=== PATIENT | female | born 1960 | race Caucasian/White ===

== ENCOUNTER → 2020-01-13 15:45 | Outpatient (BNVA) | payer OTHER, SELFPAY | PROVIDERS: PCP Internal Medicine; Referring Provider Internal Medicine; Visit Provider Internal Medicine Gastroenterology | DX: Z13.89 Encounter for screening for other disorder (principal) ==

== ENCOUNTER → 2020-01-21 13:09 | Outpatient (BNVA) | payer OTHER, SELFPAY | PROVIDERS: PCP Internal Medicine; Referring Provider Internal Medicine; Visit Provider Orthopaedic Surgery | DX: Z76.89 Persons encountering health services in other specified circumstances (principal) ==

== ENCOUNTER 2020-01-24 12:56 | Outpatient (REF) | payer OTHER, SELFPAY ==
--- NOTE | 2020-01-24 13:00 | FL_ITS ---
EXAMINATION: XR ARTHROGRAM SHOULDER, LEFT CLINICAL INFORMATION: Left shoulder pain. COMPARISON: None TECHNIQUE: Following explaining fluoroscopy-guided left shoulder arthrogram procedure, benefits and risk, a written consent was obtained. Patient was placed supine on fluoroscopy table and anterior aspect of left shoulder was cleaned and draped in usual sterile manner. 1% lidocaine was injected at the marked site along the inferior glenohumeral joint. A 22-gauge spinal needle was then inserted into the left inferior glenoid joint space and 2 mL of nonionic contrast was injected. 2 images were obtained for confirmation. Subsequently 0.1 mL gadolinium dilated and tenderness of saline and 1% lidocaine was injected and needle withdrawn. Complete hemostasis achieved at puncture site with sterile bandage applied. Patient tolerated procedure extremely well. Patient was sent to MRI for further imaging. FINDINGS: The glenohumeral joint space appears minimally reduced. No bony abnormality seen. There is contrast visualized in the glenohumeral joint space. FLUOROSCOPY TIME: 1.0 minute DOSE AREA PRODUCT: 2.747 uGy-m2 (microgray-meter squared) FL/FL arthrogram shoulder LT IMPRESSION: Successful fluoroscopy guided right shoulder arthrogram performed.
--- NOTE | 2020-01-24 13:09 | MR_ITS ---
EXAMINATION: MR SHOULDER WITH CONTRAST, LEFT CLINICAL INFORMATION: Left shoulder pain, impingement. COMPARISON: Radiographs 10/09/2019. TECHNIQUE: MRI of the shoulder was performed following the intra-articular administration of a dilute gadolinium-containing solution (arthrogram) on a high-field scanner. FINDINGS: ROTATOR CUFF: The supraspinatus tendon is markedly attenuated, with diffuse vocs-tfuk-wzbrbupan tearing, with some superficial most fibers remaining intact. There is a full-thickness component, with contrast extending into the subacromial-subdeltoid bursa. There is delamination of the tendon, with the deep tendon fibers retracted to the level of the humeral head apex. There is mild undersurface partial tearing at the anterior aspect of the infraspinatus tendon, and undersurface fraying of the distal subscapularis tendon. Mild supraspinatus muscle atrophy. BICEPS: Normal. CORACOACROMIAL ARCH: The undersurface of the acromion is curved with prominent subacromial spurring. Minimal acromioclavicular osteoarthritis. LABRUM/CAPSULE: No definite labral tear. GLENOHUMERAL JOINT/MARROW: Mild degenerative spurring along the greater tuberosity. Small osteophytes along the posterior glenoid rim. MR/MR shoulder LT w con IMPRESSION: Near-complete supraspinatus tendon tear with contrast extending into the subacromial-subdeltoid bursa. Deep tendon fibers are retracted to the level of the humeral head apex. Mild muscle atrophy. Mild undersurface tearing at the anterior aspect of the distal infraspinatus tendon, and undersurface fraying of the distal subscapularis tendon. Prominent subacromial spurring.
== END 2020-01-24 12:57 | disposition home or self-care (01) ==
LOC: HO.XRAY 12:56
PROVIDERS: PCP Internal Medicine; Visit Provider Orthopaedic Surgery
DX: M75.42 Impingement syndrome of left shoulder (principal)
CPT/HCPCS: 23350; 73040; 73222; Q9967

== ENCOUNTER → 2020-01-29 09:01 | Outpatient (BNVA) | payer OTHER, SELFPAY | PROVIDERS: Visit Provider Orthopaedic Surgery | DX: Z76.89 Persons encountering health services in other specified circumstances (principal) ==

== ENCOUNTER 2020-03-19 15:22 | Outpatient (REF) | payer OTHER, SELFPAY ==
--- NOTE | ~2020-03-19 | MM_ITS ---
EXAMINATION: MM SCREENING DIGITAL BREAST TOMOSYNTHESIS, BILATERAL CLINICAL INFORMATION: Screening. Asymptomatic. The lifetime risk of breast cancer based on the Tyrer-Cuzick Model is 11.6%. COMPARISON: Mammography: August 31, 2018 and studies dating back to June 17, 2013 TECHNIQUE: Digital breast tomosynthesis is performed in both the craniocaudal and mediolateral oblique views along with computer-aided detection (CAD). Synthesized 2D images are generated from the tomosynthesis. FINDINGS: The breasts are heterogeneously dense, which may obscure small masses (ACR BI-RADS breast composition Category c). There are no significant masses, abnormal calcifications, or other abnormalities. MM/MM tomosynthesis screening BI IMPRESSION: There are no significant changes from prior study. ASSESSMENT: BI-RADS 1: Negative RECOMMENDATION: Routine annual mammography screening. This patient's information was entered into a reminder system with a target due date for their next mammogram.
== END 2020-03-19 15:23 | disposition home or self-care (01) ==
LOC: HO.MAMMO 15:22
PROVIDERS: Visit Provider Nurse Practitioner Adult Health
DX: Z12.31 Encounter for screening mammogram for malignant neoplasm of breast (principal)
CPT/HCPCS: 77063; 77067

== ENCOUNTER 2020-05-07 07:38 | Outpatient (REF) | payer OTHER, SELFPAY ==
[2020-05-07 08:31] LABS: Hematocrit 41.4 % (37-47); Hemoglobin 13.6 g/dl (12.0-16.0); Mean Corpuscular HGB Conc 32.9 g/dl (31.0-35.0); Mean Corpuscular Hemoglobin 29.1 pg (27.0-33.0); Mean Corpuscular Volume 88.5 fL (80-98); Mean Platelet Volume 9.5 fL (9.4-12.3); Platelet Count 280 X10*3/uL (160-400); Red Blood Count 4.68 X10*6/uL (4.20-5.50); Red Cell Distribution Width 12.7 % (11.0-16.0); White Blood Count 6.7 X10*3/uL (4.8-10.8)
[2020-05-07 08:52] LABS: Alanine Aminotransferase 25 U/L (0-31); Albumin Level 4.4 g/dL (3.5-5.0); Alkaline Phosphatase 84 U/L (39-117); Anion Gap 16 (12-20); Aspartate Amino Transferase 23 U/L (5-31); Bilirubin Total 0.8 mg/dL (0.0-1.0); Blood Urea Nitrogen 21 mg/dL (9-16); Calcium 9.5 mg/dL (8.4-10.2); Carbon Dioxide 25 mmol/L (22-29); Chloride 105 mmol/L (96-108); Cholesterol 235 mg/dL; Estimated Glomerular Filt Rate > 60; Glucose Random 94 mg/dL (60-115); HDL Cholesterol 67 mg/dL; LDL Cholesterol Calculated 153 mg/dl; Potassium 4.6 mmol/L (3.3-5.1); Sodium 141 mmol/L (135-145); Triglycerides 76 mg/dL
[2020-05-07 09:13] LABS: Thyroid Stimulating Hormone 1.85 uIU/mL (0.32-4.0)
== END 2020-05-07 07:39 | disposition home or self-care (01) ==
LOC: HO.LAB 07:38
PROVIDERS: PCP Internal Medicine; Visit Provider Internal Medicine
DX: M89.49 Other hypertrophic osteoarthropathy, multiple sites (principal); E78.00 Pure hypercholesterolemia, unspecified; E55.9 Vitamin D deficiency, unspecified
CPT/HCPCS: 36415; 80053; 80061; 82306; 84443; 85027

== ENCOUNTER 2020-05-13 11:55 | Outpatient (REF) | payer OTHER, SELFPAY ==
[2020-05-13 13:06] LABS: C Reactive Protein 0.12 mg/dL (< or = 0.50)
[2020-05-14 06:11] LABS: Lyme Abs Screen <0.90 index
== END 2020-05-13 11:56 | disposition home or self-care (01) ==
LOC: HO.LAB 11:55
PROVIDERS: PCP Internal Medicine; Visit Provider Internal Medicine
DX: M89.49 Other hypertrophic osteoarthropathy, multiple sites (principal); M25.50 Pain in unspecified joint
CPT/HCPCS: 36415; 86140; 86618

== ENCOUNTER 2020-06-15 13:19 | Outpatient (REF) | payer OTHER, SELFPAY ==
[2020-06-15 13:30] VITALS: BP 124/63; PULSE 68; RESP 16; TEMP 37.2; O2SAT 99
[2020-06-15 14:26] VITALS: BMI 26.7
== END 2020-06-15 13:20 | disposition home or self-care (01) ==
LOC: HO.MS 13:19
PROVIDERS: PCP Internal Medicine; Visit Provider Ophthalmology
PROC: (CPT 66821; principal; 2020-06-15 14:20)
DX: H26.491 Other secondary cataract, right eye (principal); H40.053 Ocular hypertension, bilateral; Z96.1 Presence of intraocular lens; Z87.891 Personal history of nicotine dependence; Z79.899 Other long term (current) drug therapy
CPT/HCPCS: 66821

== ENCOUNTER 2020-07-09 07:21 | Outpatient (REF) | payer OTHER, SELFPAY ==
--- NOTE | ~2020-07-09 | MR_ITS ---
EXAMINATION: MR LUMBAR SPINE WITHOUT CONTRAST CLINICAL INFORMATION: Left lumbar radiculopathy. Self-reported left leg pain and left thigh pain with weightbearing. COMPARISON: MRI lumbar spine 09/20/2014. TECHNIQUE: MRI of the lumbar spine was obtained using routine sequences without contrast. FINDINGS: VERTEBRAL BODIES AND PARASPINAL STRUCTURES: 5 lumbar-type vertebral bodies are identified. Minimal rotatory levoscoliosis of the lumbar spine is visualized. No vertebral body compression deformities are identified. Moderate focal Schmorl's node deformity of the superior endplate of L4 is noted and is new compared with 09/20/2014. A moderate Schmorl's node deformity of the inferior endplate of L1 is slightly increased in size compared with 09/20/2014. Scattered foci with intrinsic high T1-weighted signal intensity are noted in the visualized thoracic and lumbar spine and likely represent hemangiomas or regions of focal fat. CONUS MEDULLARIS AND CAUDA EQUINA: Normal, terminating at the level of T12-L1. SPINAL LEVELS: T12-L1: No significant change compared with 09/20/2014. No significant central foraminal stenoses. 25% overall loss of craniocaudal height of the intervertebral disc. Mild bilateral ligamentum flavum hypertrophy. L1-L2: Moderate Schmorl's node deformity of the inferior endplate of L1 increased in size compared with 09/20/2014. No significant central or foraminal stenoses. Approximately 25% overall loss of craniocaudal height of the intervertebral disc. Mild bilateral ligamentum flavum hypertrophy. L2-L3: No significant change compared with 09/20/2014. Mild bilateral parasagittal and intraforaminal disc protrusions resulting in minimal abutment upon the traversing left L3 nerve roots and coming to within 1 mm proximity of the traversing right L3 nerve roots. Minimal central annular T2 hyperintensity which may represent an annular fissure. L3-L4: Moderate left parasagittal and intraforaminal disc protrusion slightly increased in size compared with 09/20/2014 resulting in mild impingement upon the traversing left L4 nerve roots within the left subarticular recess and mild abutment upon the left L3 dorsal root ganglion and exiting nerve root (series 6 image 18). T2 hyperintensity is present in the intraforaminal component of the protrusion and may represent an annular fissure. Mild effacement of the right subarticular recess secondary to a right parasagittal disc-osteophyte complex is unchanged compared with 09/20/2014. Furthermore, moderate left facet hypertrophic changes are slightly progressed compared with 09/20/2014. 2 mm subluxation of the left L3-L4 facet joint with fluid within the facet joint is increased in prominence compared with 09/20/2014. L4-L5: Moderate left parasagittal and intraforaminal disc protrusion slightly increased in size compared with 09/20/2014 resulting in mild left L5 traversing nerve root impingement (series 6 image 24). Furthermore, moderate left facet hypertrophic changes and left ligamentum flavum hypertrophy are slightly increased compared with 09/20/2014. Mild right facet hypertrophic changes are unchanged appreciably. L5-S1: Moderate left facet hypertrophic changes slightly increased compared with 09/20/2014. No significant central or foraminal stenoses. Mild right facet hypertrophy. Normal intervertebral disc. MR/MR lumbar spine wo con IMPRESSION: 1. Moderate multilevel chronic spondylosis of the lumbar spine with interval progression at several levels as detailed above compared with 09/20/2014. 2. L3-L4 moderate left parasagittal and intraforaminal disc protrusion increased in size compared with 09/20/2014 resulting in left L3 and L4 nerve root impingement. 3. L4-L5 moderate left parasagittal and intraforaminal disc protrusion slightly increased in size compared with 09/20/2014 resulting in mild left L5 nerve root impingement.
--- NOTE | ~2020-07-09 | XR_ITS ---
EXAMINATION: XR HIP, LEFT CLINICAL INFORMATION: Chronic left hip pain. COMPARISON: CT abdomen and pelvis 02/29/2016. TECHNIQUE: Two views of the left hip. FINDINGS: Some minimal degenerative changes are present in the left hip with some supra-acetabular sclerosis and minimal osteophyte formation. The joint space is well preserved. Findings are probably similar when compared to the 02/29/2016 CT scan. No fractures or bony destructive lesions seen. XR/XR hip LT min 2V IMPRESSION: Mild degenerative changes, left hip.
== END 2020-07-09 07:22 | disposition home or self-care (01) ==
LOC: HO.MRI 07:21
PROVIDERS: Visit Provider Internal Medicine
DX: M25.552 Pain in left hip (principal); M54.16 Radiculopathy, lumbar region
CPT/HCPCS: 72148; 73502

== ENCOUNTER → 2020-08-07 08:29 | Outpatient (BNVA) | payer OTHER, SELFPAY | PROVIDERS: Visit Provider Orthopaedic Surgery ==

== ENCOUNTER 2020-09-25 15:00 | Outpatient (RCR) | payer OTHER, SELFPAY ==
--- NOTE | 2020-08-19 18:17 | MHC.PT.EP ---
[facility] [place] Office [place] Office [place] Office [address] Juanjo Padilla [address] [phone] F: [phone] F: [phone] F: [phone] F: [phone] Physical Therapy Plan of Care Date of Evaluation: Date of Surgery: Diagnosis: Myalgia trochanteric bursitis, L hip strain of muscle, fascia and tendon of posterior muscle group Assessment: 60 y/o F with s/sx consistent with trochanteric bursitis of L hip and ? underlying L3/L4 derangement. Pt complains of pain and difficulty with prolonged walking, repetitive [id number], descending stairs, walking up inclines, and navigating changing terrains. Examination shows TTP L greater trochanter, gluteal muscles, lateral hip distal to greater trochanter, decreased hip strength L>R, (+) L Libra, (+) L ZOHAIB, L posterior innominate, and impaired gait pattern with L trendelenberg and R foot drag. . Further SIJ assessment next visit. Recommend PT 2x/week for 5 weeks to address impairments, implement HEP, and prioritize functional mobility. Frequency and Duration: The patient will be seen 2x/week for 5 weeks Short Term Goals: 2 weeks: 1. I with HEP 2. Pt will demonstrate increase in L hip abd. strength by 1 MMT grade 3. Pt will present with (-) L Libra [employer] Performance Specialist Goals: 3 weeks: 1. I with HEP and self-management of sx 2. Pt will be able to descend stairs with <3/10 pain 3. Pt will be able to perform transitional movements ([id number]) with <3/10 pain Treatment Plan: Modalities to reduce pain, spasms and effusion. Manual therapy to restore motion and function. Therapeutic exercise to improve strength and flexibility. Neuromuscular re-education for posture and balance. Therapeutic activities to return to functional activities of daily living. Electronically signed by: Nanda Bowser PT Please sign and return to therapist. Thank you for your referral.
--- NOTE | 2020-10-06 13:32 | MHC.PT.DC ---
[facility] [place] Office [place] Office [place] Office [address] Juanjo Padilla [address] [phone] F: [phone] F: [phone] F: [phone] F: [phone] Physical Therapy Discharge Report Diagnosis: Myalgia trochanteric bursitis, L hip strain of muscle, fascia and tendon of posterior muscle group Date of Surgery: Date of Evaluation: 08/19/20 Date of Discharge: 10/06/20 Treatments to Date: 4 Cancellations to Date: 0 No Shows to Date: 0 Discharge Status: Achieved Goals Improved Function Independent with HEP Discharge Summary: Pt reports feeling better and has requested d/c. She is I with HEP and demonstrates improved strength and less pain. Electronically signed by: Nanda Bowser PT Please sign and return to therapist. Thank you for your referral.
== END 2020-10-06 13:32 | disposition home or self-care (01) ==
LOC: HO.PT 15:00
PROVIDERS: PCP Internal Medicine; Visit Provider Orthopaedic Surgery
DX: M79.18 Myalgia, other site (principal); M70.62 Trochanteric bursitis, left hip; S76.312D Strain of muscle, fascia and tendon of the posterior muscle group at thigh level, left thigh, subsequent encounter
CPT/HCPCS: 97110; 97140; 97161

== ENCOUNTER 2021-01-15 07:29 | Outpatient (REF) | payer OTHER, SELFPAY ==
[2021-01-15 07:38] LABS: MANUAL DIFF FLAG NO
[2021-01-15 07:59] LABS: Basophils Absolute Auto 0.1 X10*3/uL (0.0-0.2); Basophils Percent Auto 1.1 % (0-2); Eosinophils Absolute Auto 0.3 X10*3/uL (0.0-0.4); Eosinophils Percent Auto 5.8 % (0-4); Hematocrit 41.9 % (37.0-47.0); Hemoglobin 13.7 g/dl (12.0-16.0); Imm Gran Abs Auto 0.02 X10*3/uL (0.00-0.03); Imm Gran Pct Auto 0.4 % (0.0-0.4); Lymphocytes Absolute Auto 2.2 X10*3/uL (1.2-4.9); Lymphocytes Percent Auto 39.9 % (20-40); Mean Corpuscular HGB Conc 32.7 g/dl (31.0-35.0); Mean Corpuscular Hemoglobin 29.7 pg (27.0-33.0); Mean Corpuscular Volume 90.9 fL (80.0-98.0); Mean Platelet Volume 9.1 fL (9.4-12.3); Monocytes Absolute Auto 0.5 X10*3/uL (0.1-1.2); Monocytes Percent Auto 9.6 % (2-11); Neutrophils Absolute Auto 2.4 x10*3/uL (2.0-8.3); Neutrophils Percent Auto 43.2 % (45-73); Platelet Count 281 X10*3/uL (160-400); Red Blood Count 4.61 X10*6/uL (4.20-5.50); Red Cell Distribution Width 12.9 % (11.0-16.0); White Blood Count 5.5 X10*3/uL (4.8-10.8)
[2021-01-15 08:28] LABS: Alanine Aminotransferase 25 U/L (0-31); Albumin Level 4.5 g/dL (3.5-5.0); Alkaline Phosphatase 77 U/L (39-117); Anion Gap 12 (12-20); Aspartate Amino Transferase 21 U/L (5-31); Bilirubin Total 0.7 mg/dL (0.0-1.0); Blood Urea Nitrogen 22 mg/dL (9-16); Calcium 9.7 mg/dL (8.4-10.2); Carbon Dioxide 27 mmol/L (22-29); Chloride 108 mmol/L (96-108); Estimated Glomerular Filt Rate > 60; Glucose Random 91 mg/dL (60-115); Potassium 4.6 mmol/L (3.3-5.1); Sodium 142 mmol/L (135-145)
== END 2021-01-15 07:30 | disposition home or self-care (01) ==
LOC: HO.LAB 07:29
PROVIDERS: PCP Internal Medicine; Visit Provider Internal Medicine
DX: M17.0 Bilateral primary osteoarthritis of knee (principal); E78.00 Pure hypercholesterolemia, unspecified; E55.9 Vitamin D deficiency, unspecified
CPT/HCPCS: 36415; 80053; 82306; 85025

== ENCOUNTER 2021-03-22 15:12 | Outpatient (REF) | payer OTHER, SELFPAY ==
--- NOTE | ~2021-03-22 | MM_ITS ---
EXAMINATION: MM SCREENING DIGITAL BREAST TOMOSYNTHESIS, BILATERAL CLINICAL INFORMATION: Screening. Asymptomatic. The lifetime risk of breast cancer based on the Tyrer-Cuzick Model is 9%. COMPARISON: Mammography: 03/19/2020, 08/31/2018, 07/19/2017; outside mammography 07/19/2016, 07/08/2015, 06/18/2014 ([facility]) TECHNIQUE: Digital breast tomosynthesis is performed in both the craniocaudal and mediolateral oblique views along with computer-aided detection (CAD). Synthesized 2D images are generated from the tomosynthesis. FINDINGS: The breasts are heterogeneously dense, which may obscure small masses (ACR BI-RADS breast composition Category c). There is fibronodular parenchymal pattern. Left breast appears similar to prior exams with no developing density or interval mass or architectural abnormality. Neither breast shows abnormal calcifications. There is a biopsy clip marker right mid upper outer quadrant with 2 incidental adjacent benign coarse calcifications. The axilla and skin contours are unremarkable. The right CC view has asymmetric density posterior breast medial to midline adjacent to chest wall without correlate on MLO view. Suspect summation artifact or incompletely compressed glandular tissue. Patient will be recalled for additional imaging MM/MM tomosynthesis screening BI IMPRESSION: 1. Right: Asymmetric density CC view posterior breast medial to midline, suspect summation artifact or incompletely compressed glandular tissue. 2. Left: There are no significant changes from prior study. ASSESSMENT: BI-RADS 0: Incomplete - Need Additional Imaging Evaluation RECOMMENDATION: 1. Additional views of the right breast (CC medial, ML). 2. Targeted ultrasound if warranted after review of the additional views. 3. Radiology department staff will contact the patient for additional imaging. This patient's information was entered into a reminder system with a target due date for their next mammogram.
== END 2021-03-22 15:13 | disposition home or self-care (01) ==
LOC: HO.MAMMO 15:12
PROVIDERS: PCP Internal Medicine; Visit Provider Internal Medicine
DX: Z12.31 Encounter for screening mammogram for malignant neoplasm of breast (principal)
CPT/HCPCS: 77063; 77067

== ENCOUNTER 2021-03-26 10:27 | Outpatient (REF) | payer OTHER, SELFPAY ==
--- NOTE | ~2021-03-26 | MM_ITS ---
EXAMINATION: MM DIAGNOSTIC DIGITAL BREAST TOMOSYNTHESIS, RIGHT US TARGETED RIGHT BREAST CLINICAL INFORMATION: Density deep medial right breast COMPARISON: Mammography: 03/22/2021 and studies dating back to 05/08/2009 TECHNIQUE: Digital breast tomosynthesis is performed. 2D images are generated from the tomosynthesis. The following views are obtained: Spot compression craniocaudal view and full-field medial lateral view. Targeted right breast ultrasound. FINDINGS: The breasts are heterogeneously dense, which may obscure small masses (ACR BI-RADS breast composition Category c). Spot compression view in craniocaudal projection demonstrates persistence of an approximately 9 mm somewhat lobular density lying 10 cm from the nipple adjacent to vessels and which may represent a combination of vessels and lymph node. The breast parenchyma is very nodular and there are some similar-appearing densities on previous studies. On 90-degree mediolateral view as well as previous mediolateral oblique studies there is density seen superiorly which may correspond to the density seen on craniocaudal projection. Targeted right breast ultrasound did not demonstrate any abnormal cystic or solid mass. No region of abnormal distal sound shadowing was appreciated. Results are discussed with the patient at time of visit. MM/MM tomosynthesis added views R IMPRESSION: Dense breast parenchyma with deep slightly medial density with no ultrasound correlate. Recommend 6 month follow-up right breast mammogram. ASSESSMENT: BI-RADS 3: Probably Benign RECOMMENDATION: Diagnostic mammography in 6 months. This patient's information was entered into a reminder system with a target due date for their next mammogram.
== END 2021-03-26 10:28 | disposition home or self-care (01) ==
LOC: HO.MAMMO 10:27
PROVIDERS: Visit Provider Internal Medicine
DX: R92.2 Inconclusive mammogram (principal)
CPT/HCPCS: 76642; 77061; 77065

== ENCOUNTER 2021-08-02 13:05 | Outpatient (REF) | payer OTHER, SELFPAY ==
[2021-08-02 13:19] VITALS: BMI 25.0
[2021-08-02 13:20] VITALS: BP 121/66; PULSE 67; RESP 16; TEMP 36.4; O2SAT 99
== END 2021-08-02 13:06 | disposition home or self-care (01) ==
LOC: HO.MS 13:05
PROVIDERS: PCP Internal Medicine; Visit Provider Ophthalmology
PROC: (CPT 66821; principal; 2021-08-02 15:10)
DX: H26.492 Other secondary cataract, left eye (principal); H40.053 Ocular hypertension, bilateral; Z96.1 Presence of intraocular lens; Z79.899 Other long term (current) drug therapy; Z87.891 Personal history of nicotine dependence
CPT/HCPCS: 66821

== ENCOUNTER 2021-09-21 07:34 | Outpatient (REF) | payer OTHER, SELFPAY ==
[2021-09-21 07:46] LABS: MANUAL DIFF FLAG NO
[2021-09-21 07:59] LABS: Basophils Absolute Auto 0.1 X10*3/uL (0.0-0.2); Basophils Percent Auto 1.3 % (0-2); Eosinophils Absolute Auto 0.3 X10*3/uL (0.0-0.4); Eosinophils Percent Auto 4.9 % (0-4); Hematocrit 41.3 % (37.0-47.0); Imm Gran Abs Auto 0.04 X10*3/uL (0.00-0.03); Imm Gran Pct Auto 0.6 % (0.0-0.4); Lymphocytes Absolute Auto 2.8 X10*3/uL (1.2-4.9); Lymphocytes Percent Auto 40.7 % (20-40); Mean Corpuscular HGB Conc 33.9 g/dl (31.0-35.0); Mean Corpuscular Hemoglobin 29.9 pg (27.0-33.0); Mean Corpuscular Volume 88.1 fL (80.0-98.0); Mean Platelet Volume 8.8 fL (9.4-12.3); Monocytes Absolute Auto 0.7 X10*3/uL (0.1-1.2); Monocytes Percent Auto 9.8 % (2-11); Neutrophils Percent Auto 42.7 % (45-73); Platelet Count 298 X10*3/uL (160-400); Red Blood Count 4.69 X10*6/uL (4.20-5.50); Red Cell Distribution Width 12.7 % (11.0-16.0); White Blood Count 6.9 X10*3/uL (4.8-10.8)
[2021-09-21 08:41] LABS: Alanine Aminotransferase 19 U/L (0-31); Albumin Level 4.7 g/dL (3.5-5.0); Alkaline Phosphatase 83 U/L (39-117); Anion Gap 15 (12-20); Aspartate Amino Transferase 19 U/L (5-31); Bilirubin Total 0.8 mg/dL (0.0-1.0); Blood Urea Nitrogen 19 mg/dL (9-16); Calcium 9.6 mg/dL (8.4-10.2); Carbon Dioxide 26 mmol/L (22-29); Chloride 102 mmol/L (96-108); Estimated Glomerular Filt Rate > 60; Glucose Random 91 mg/dL (60-115); Potassium 4.3 mmol/L (3.3-5.1); Sodium 139 mmol/L (135-145); Total Protein 7.3 g/dL (6.5-8.0)
== END 2021-09-21 07:35 | disposition home or self-care (01) ==
LOC: HO.LAB 07:34
PROVIDERS: PCP Internal Medicine; Visit Provider Internal Medicine
DX: M15.9 Polyosteoarthritis, unspecified (principal)
CPT/HCPCS: 36415; 80053; 85025

== ENCOUNTER 2021-10-19 14:59 | Outpatient (REF) | payer OTHER, SELFPAY ==
--- NOTE | ~2021-10-19 | MM_ITS ---
EXAMINATION: MM DIAGNOSTIC DIGITAL BREAST TOMOSYNTHESIS, RIGHT CLINICAL INFORMATION: Short interval six-month follow-up probable benign asymmetric fibroglandular tissue posterior right breast limited to CC view just medial to midline. No family history breast cancer. COMPARISON: Mammography: 03/26/2021, 03/22/2021 (BI-RADS 0) and prior studies dating back to outside mammography 06/18/2014 ([facility]); targeted right breast ultrasound 03/26/2021. TECHNIQUE: Digital breast tomosynthesis is performed in both the craniocaudal and mediolateral oblique views along with computer-aided detection (CAD). Synthesized 2D images are generated from the tomosynthesis. FINDINGS: The breasts are heterogeneously dense, which may obscure small masses (ACR BI-RADS breast composition Category c). Findings fibronodular parenchymal pattern is similar to prior studies. There is a biopsy clip marker again seen anterior mid 11:00 position. The parenchymal asymmetry posterior breast medial to midline is less conspicuous and in retrospect similar to remote outside right CC view 2014. There is no developing density or interval architectural abnormality. No abnormal calcifications. The skin contours are smooth. Right breast will be reassessed again at time of annual bilateral mammography, due in 6 months. Results are discussed with the patient at time of visit. MM/MM tomosynthesis diagnostic RT IMPRESSION: -No significant changes from prior exams. -No developing density. ASSESSMENT: BI-RADS 3: Probably Benign RECOMMENDATION: Diagnostic mammography at time of annual bilateral exam, due in 6 months. This patient's information was entered into a reminder system with a target due date for their next mammogram.
== END 2021-10-19 15:00 | disposition home or self-care (01) ==
LOC: HO.MAMMO 14:59
PROVIDERS: Absent Provider Nurse Practitioner Adult Health; PCP Internal Medicine; Visit Provider Internal Medicine
DX: R92.2 Inconclusive mammogram (principal)
CPT/HCPCS: 77061; 77065

== ENCOUNTER 2022-01-19 07:46 | Outpatient (REF) | payer OTHER, SELFPAY ==
[2022-01-19 08:02] LABS: MANUAL DIFF FLAG NO
[2022-01-19 08:14] LABS: Basophils Absolute Auto 0.1 X10*3/uL (0.0-0.2); Basophils Percent Auto 1.5 % (0-2); Eosinophils Absolute Auto 0.2 X10*3/uL (0.0-0.4); Eosinophils Percent Auto 4.4 % (0-4); Hematocrit 44.5 % (37.0-47.0); Hemoglobin 14.7 g/dl (12.0-16.0); Imm Gran Abs Auto 0.01 X10*3/uL (0.00-0.03); Imm Gran Pct Auto 0.2 % (0.0-0.4); Lymphocytes Absolute Auto 2.3 X10*3/uL (1.2-4.9); Lymphocytes Percent Auto 42.6 % (20-40); Mean Corpuscular Hemoglobin 28.9 pg (27.0-33.0); Mean Corpuscular Volume 87.6 fL (80.0-98.0); Mean Platelet Volume 8.8 fL (9.4-12.3); Monocytes Absolute Auto 0.5 X10*3/uL (0.1-1.2); Monocytes Percent Auto 9.7 % (2-11); Neutrophils Absolute Auto 2.3 x10*3/uL (2.0-8.3); Neutrophils Percent Auto 41.6 % (45-73); Platelet Count 272 X10*3/uL (160-400); Red Blood Count 5.08 X10*6/uL (4.20-5.50); Red Cell Distribution Width 12.6 % (11.0-16.0); White Blood Count 5.4 X10*3/uL (4.8-10.8)
[2022-01-19 08:40] LABS: Alanine Aminotransferase 20 U/L (0-31); Albumin Level 4.6 g/dL (3.5-5.0); Alkaline Phosphatase 80 U/L (39-117); Anion Gap 12 (12-20); Aspartate Amino Transferase 20 U/L (5-31); Blood Urea Nitrogen 13 mg/dL (9-16); C Reactive Protein 0.11 mg/dL (< or = 0.50); Calcium 9.9 mg/dL (8.4-10.2); Carbon Dioxide 28 mmol/L (22-29); Chloride 106 mmol/L (96-108); Cholesterol 263 mg/dL; Estimated Glomerular Filt Rate > 60; Glucose Random 100 mg/dL (60-115); HDL Cholesterol 76 mg/dL; LDL Cholesterol Calculated 175 mg/dl; Potassium 4.5 mmol/L (3.3-5.1); Rheumatoid Factor 30.7 IU/mL (<15.0); Sodium 141 mmol/L (135-145); Total Protein 7.4 g/dL (6.5-8.0); Triglycerides 61 mg/dL
[2022-01-19 08:54] LABS: Erythrocyte Sedimentation Rate 2 MM/HR (0-20)
[2022-01-19 09:03] LABS: Bilirubin Total 0.7 mg/dL (0.0-1.0); Thyroid Stimulating Hormone 1.88 uIU/mL (0.32-4.0)
== END 2022-01-19 07:47 | disposition home or self-care (01) ==
LOC: HO.LAB 07:46
PROVIDERS: PCP Internal Medicine; Visit Provider Internal Medicine
DX: M79.605 Pain in left leg (principal); M15.9 Polyosteoarthritis, unspecified; Z79.1 Long term (current) use of non-steroidal anti-inflammatories (NSAID)
CPT/HCPCS: 36415; 80053; 80061; 84443; 85025; 85652; 86140; 86431

== ENCOUNTER → 2022-02-17 08:18 | Outpatient (BNVA) | payer OTHER, SELFPAY | PROVIDERS: PCP Internal Medicine; Visit Provider Student in an Organized Health Care Education/Training Program | DX: Z13.89 Encounter for screening for other disorder (principal) ==

== ENCOUNTER 2022-02-18 07:51 | Outpatient (REF) | payer OTHER, SELFPAY ==
[2022-02-18 09:30] LABS: HBS Num1 9.61 mIU/mL (0-7.99); HBc Num1 0.07 S/CO (0.00-0.79); HBsAGNum1 0.32 S/CO (0.00-0.99); Hepatitis A Antibody IgM 0.23 Index (0-0.79); Hepatitis B Core Antibody Nonreactive (Nonreactive); Hepatitis B Surface Antigen Negative (Negative); ~HepC Num1 0.05 S/CO (0.00-0.79); ~Hepatitis A Antibody IgM Nonreactive (Nonreactive); ~Hepatitis C Antibody Nonreactive (Nonreactive)
[2022-02-18 13:37] LABS: HBS Num2 9.53 mIU/mL (0-7.99); HBS Num3 10.39 mIU/mL (0-7.99); ~Hepatitis B Surface Antibody GRAYZONE (Nonreactive)
[2022-02-22 15:14] LABS: Cyclic Citrullinated Peptide <16 UNITS
== END 2022-02-18 07:52 | disposition home or self-care (01) ==
LOC: HO.LAB 07:51
PROVIDERS: PCP Internal Medicine; Visit Provider Student in an Organized Health Care Education/Training Program
DX: Z11.59 Encounter for screening for other viral diseases (principal); M25.512 Pain in left shoulder
CPT/HCPCS: 36415; 86200; 86704; 86706; 86709; 86803; 87340

== ENCOUNTER 2022-05-17 15:00 | Outpatient (REF) | payer OTHER, SELFPAY ==
--- NOTE | ~2022-05-17 | MM_ITS ---
EXAMINATION: MM DIAGNOSTIC DIGITAL BREAST TOMOSYNTHESIS, BILATERAL CLINICAL INFORMATION: Due for yearly. Also follow-up probable benign small fibroglandular asymmetry posterior central medial right breast near film margin, initially noted for recall 03/22/2021. The lifetime risk of breast cancer based on the Tyrer-Cuzick Model is 8%. COMPARISON: Multiple prior mammography, most recent 10/19/2021. Ultrasound right breast 03/26/2021. TECHNIQUE: Digital breast tomosynthesis is performed in both the craniocaudal and mediolateral oblique views along with computer-aided detection (CAD). Synthesized 2D images are generated from the tomosynthesis. FINDINGS: The breasts are heterogeneously dense, which may obscure small masses (ACR BI-RADS breast composition Category c). There is fibronodular parenchymal pattern similar to prior studies. Small density at posterior film margin central medial right CC view is similar to decreased. There is no developing density or interval architectural abnormality. No abnormal calcifications. There is a biopsy clip marker again seen mid upper outer right breast. The axilla and skin contours are unremarkable. Results are provided to the patient at time of visit by the technologist. MM/MM tomosynthesis diagnostic BI IMPRESSION: Right: -No significant change from prior diagnostic exams. Left: -No mammographic evidence of malignancy. ASSESSMENT: BI-RADS 3: Probably Benign RECOMMENDATION: Diagnostic mammography at time of next annual exam, due in 12 months. This patient's information was entered into a reminder system with a target due date for their next mammogram.
== END 2022-05-17 15:01 | disposition home or self-care (01) ==
LOC: HO.MAMMO 15:00
PROVIDERS: PCP Internal Medicine; Visit Provider Internal Medicine
DX: R92.2 Inconclusive mammogram (principal); N64.89 Other specified disorders of breast
CPT/HCPCS: 77062; 77066

== ENCOUNTER 2022-08-02 07:48 | Outpatient (REF) | payer OTHER, SELFPAY | END 2022-08-02 07:49 | disposition home or self-care (01) | LOC: HO.HOSX 07:48 | PROVIDERS: PCP Internal Medicine; Visit Provider Orthopaedic Surgery | DX: M17.11 Unilateral primary osteoarthritis, right knee (principal) | CPT/HCPCS: 73560; 73565 ==

== ENCOUNTER 2022-12-07 07:46 | Outpatient (REF) | payer OTHER, SELFPAY ==
[2022-12-07 07:55] LABS: MANUAL DIFF FLAG NO
[2022-12-07 09:32] LABS: Basophils Absolute Auto 0.1 X10*3/uL (0.0-0.2); Basophils Percent Auto 1.7 % (0-2); Eosinophils Absolute Auto 0.4 X10*3/uL (0.0-0.4); Hematocrit 42.8 % (37.0-47.0); Hemoglobin 14.1 g/dl (12.0-16.0); Imm Gran Abs Auto 0.02 X10*3/uL (0.00-0.03); Imm Gran Pct Auto 0.3 % (0.0-0.4); Lymphocytes Absolute Auto 2.4 X10*3/uL (1.2-4.9); Mean Corpuscular HGB Conc 32.9 g/dl (31.0-35.0); Mean Corpuscular Hemoglobin 29.5 pg (27.0-33.0); Mean Corpuscular Volume 89.5 fL (80.0-98.0); Mean Platelet Volume 9.6 fL (9.4-12.3); Monocytes Absolute Auto 0.6 X10*3/uL (0.1-1.2); Monocytes Percent Auto 9.9 % (2-11); Neutrophils Absolute Auto 2.9 x10*3/uL (2.0-8.3); Neutrophils Percent Auto 45.1 % (45-73); Platelet Count 290 X10*3/uL (160-400); Red Blood Count 4.78 X10*6/uL (4.20-5.50); Red Cell Distribution Width 12.5 % (11.0-16.0); White Blood Count 6.4 X10*3/uL (4.8-10.8)
[2022-12-07 10:08] LABS: Alanine Aminotransferase 20 U/L (0-31); Albumin Level 4.4 g/dL (3.5-5.0); Alkaline Phosphatase 60 U/L (39-117); Anion Gap 12 (12-20); Aspartate Amino Transferase 20 U/L (5-31); Bilirubin Total 0.9 mg/dL (0.0-1.0); Blood Urea Nitrogen 15 mg/dL (9-16); C Reactive Protein 0.13 mg/dL (< or = 0.50); Calcium 9.9 mg/dL (8.4-10.2); Carbon Dioxide 27 mmol/L (22-29); Chloride 106 mmol/L (96-108); Estimated Glomerular Filt Rate > 60; Glucose Random 84 mg/dL (60-115); Potassium 4.2 mmol/L (3.3-5.1); Sodium 141 mmol/L (135-145); Total Protein 7.2 g/dL (6.5-8.0)
== END 2022-12-07 07:47 | disposition home or self-care (01) ==
LOC: HO.LAB 07:46
PROVIDERS: PCP Internal Medicine; Visit Provider Internal Medicine
DX: M54.16 Radiculopathy, lumbar region (principal); Z79.1 Long term (current) use of non-steroidal anti-inflammatories (NSAID); M25.552 Pain in left hip
CPT/HCPCS: 36415; 80053; 85025; 86140

== ENCOUNTER 2022-12-08 14:26 | Outpatient (REF) | payer OTHER, SELFPAY ==
--- NOTE | ~2022-12-08 | MR_ITS ---
EXAMINATION: MR LUMBAR SPINE WITHOUT CONTRAST CLINICAL INFORMATION: Left-sided radiculopathy COMPARISON: MRI lumbar spine 07/09/2020 TECHNIQUE: MRI of the lumbar spine was obtained using routine sequences without contrast. FINDINGS: Mid lumbar levocurvature, apex at L2-L3 with slight right lateral listhesis at L2-L3. Preserved lumbar lordosis. Redemonstrated grade 1 retrolisthesis at L3-4 and L2-L3 greater than L1-L2. Vertebral body heights are maintained. There is no suspicious osseous lesion. Multilevel disc desiccation with progressed moderate L2-L3 and L1-L2 with similar moderate to severe L3-L4 disc height loss. Multilevel endplate Schmorl's nodes, progressed at L2-L3 with mild type I Modic endplate changes, increased and most pronounced at L2-L3. Multilevel anterior osteophytic spurring is seen. Level by level detail as follows: L1-L2: Shallow annular disc bulge without spinal canal or neural foraminal stenosis. L2-L3: Retrolisthesis with annular disc bulge and new inferiorly migrated right foraminal disc extrusion and redemonstrated broad-based left subarticular disc protrusion and associated annular fissure. No spinal canal stenosis, noting redemonstrated abutment of the traversing L3 nerve roots in the subarticular zones. Stable minimal bilateral neural foraminal encroachment. L3-L4: Retrolisthesis with annular disc bulge and progressive right lateral disc osteophyte with mild bilateral facet arthrosis and small greater than right facet joint effusions. No spinal canal stenosis. Unchanged moderate right and mild left neural foraminal stenosis with impingement upon the extraforaminal right L3 nerve root. L4-L5: Annular disc bulge with new left central disc protrusion. Redemonstrated moderate bilateral facet arthrosis. No spinal canal stenosis, noting increased left subarticular zone narrowing and impression upon the traversing left L5 nerve root. No significant neural foraminal stenosis. L5-S1: Shallow annular disc bulge and advanced bilateral facet arthrosis. No spinal canal or neural foraminal stenosis. The conus medullaris terminates at the level of L1-L2. The distal spinal cord is normal in appearance. . No epidural fluid collection, hematoma, or mass. There is mild to moderate fatty atrophy of the lower paraspinal musculature. Moderately distended urinary bladder. Cervical nabothian cysts. New mild right upper pole hydronephrosis and mild left hydroureter, presumably related to distended urinary bladder with either caliectasis versus parapelvic cyst in the left lower pole. The abdominal aorta is of normal contour and caliber. MR/MR lumbar spine wo con IMPRESSION: 1. Progressive moderate disc height loss at L2-L3 and L1-L2 with increased type I Modic endplate changes. 2. At L4-L5, new left central disc protrusion with increased left subarticular zone narrowing and impression upon the traversing left L5 nerve root. 3. At L3-L4, stable moderate right neural foraminal stenosis with impingement upon the extraforaminal right L3 nerve root. 4. At L2-L3, new inferiorly migrated right foraminal disc extrusion does not contribute to increased stenosis. Stable abutment of the traversing L3 nerve roots in the subarticular zones. 5. New mild right upper pole hydronephrosis and mild left hydroureter, presumably related to distended urinary bladder, with either caliectasis versus parapelvic cyst in the left lower pole.
== END 2022-12-08 14:27 | disposition home or self-care (01) ==
LOC: HO.MRI 14:26
PROVIDERS: Visit Provider Radiology Diagnostic Radiology
DX: M54.16 Radiculopathy, lumbar region (principal)
CPT/HCPCS: 72148

== ENCOUNTER 2022-12-15 10:14 | Outpatient (REF) | payer OTHER, SELFPAY ==
--- NOTE | ~2022-12-15 | XR_ITS ---
EXAMINATION: XR HIP, LEFT CLINICAL INFORMATION: Pain in left hip COMPARISON: Left hip 07/09/2020 TECHNIQUE: AP view the pelvis and frog-leg lateral view of the left hip FINDINGS: No fracture or bony destruction alignment is anatomic. Hip joint space is maintained. There is subchondral sclerosis in the superior-lateral aspect of the acetabulum with small associated marginal osteophyte. The sacroiliac joints, right hip and pubic symphysis are within normal limits. Incidentally noted are large amount of stool within the visualized portions of the ascending and descending colon suggestive of constipation. XR/XR hip LT min 2V IMPRESSION: No significant change compared to study of 07/09/2020. Mild degenerative changes of the left hip.
== END 2022-12-15 10:15 | disposition home or self-care (01) ==
LOC: HO.HOSX 10:14
PROVIDERS: Visit Provider Orthopaedic Surgery
DX: M25.552 Pain in left hip (principal); M54.50 Low back pain, unspecified
CPT/HCPCS: 73502

== ENCOUNTER 2022-12-15 13:06 | Outpatient (AMB) | payer OTHER, SELFPAY ==
--- NOTE | 2022-12-15 13:08 | A.OFFVIS_ITS ---
Intake Intake Visit Reasons: Newprob-left hip pain Intake Note: This is a 62 year old female who presents with complaints of progressively worsening low back pain which radiates down her left leg to her left foot as well as intermittent discomfort along the lateral aspect of her left hip. The patient has tried Tylenol and anti-inflammatory medicines which gave her minimal relief. Her symptoms have been getting worse for the last few years. She also reports intermittent weakness in her left leg. Allergies avocado [AVOCADO] Allergy (Unknown, Verified 12/15/22 13:16) VOMITING bananas Adverse Reaction (Intermediate, Uncoded 12/15/22 13:16) severe nausea Medication List - Last Reconciled 12/15/22 by Caridad Calderon RN diclofenac sodium 75 mg PO BID estradiol 1 patch topical QWEEK progesterone micronized 100 mg PO DAILY [facility] Medical History Arthritis GERD (gastroesophageal reflux disease) (~10/2009) History of 2019 novel coronavirus disease (COVID-19) Surgical History H/O esophagogastroduodenoscopy Hx of colonoscopy S/P right knee arthroscopy Family History Father Emphysema lung Mother Uterine cancer Sister Lymphoma Social History Household Members: Spouse Housing: House Alcohol intake: current Alcohol intake frequency: a few times a month Alcohol type: beer Patient Tobacco Use Status: Former Tobacco user Years Smoked: quit 30 years ago e-Cigarette/Vaping Use: Never Used service: No Current occupational status: employed Current occupation: [employer] [place] Right HAnded Physical Exam Const Other: Well-nourished well-developed very friendly female awake alert and oriented x3 in no acute distress Back/Spine/Pelvis Other: Low back examination shows left-sided paraspinal muscle tenderness, pain with range of motion, positive straight leg raise test on the left at 70 degrees Extrem Other: Left hip examination shows full range of motion when compared to her right hip, minimal discomfort with range of motion, mild tenderness over her bursa, no overlying Results Reviewed Results Reviewed: X-rays of the patient's left hip show minimal joint space narrowing, no acute bony abnormalities MRI report of the patient's lumbar spine shows ?at L4-L5, new left central disc protrusion with increase left subarticular zone narrowing and impression upon the traversing left L5 nerve root? Assessment & Plan Assessment & Plan (1) Low back pain: Code(s): M54.50 - Low back pain, unspecified Plan: Ms. Sidhu presents with left hip discomfort most likely due to greater trochanteric bursitis as well as low back pain which radiates into her left leg possibly due to lumbar stenosis. Thus, I will give the patient a prescription for a Medrol Dosepak to help with inflammation. I will also put in a referral for the patient to be evaluated in the neuro surgery office here at [facility]. The patient will follow-up as instructed. Feel free to call me at any time should questions regarding her orthopedic management arise. I spent 22 minutes in reviewing the patient's records and imaging studies, seeing the patient and documenting in the medical record. Orders: Orders XR hip LT min 2V Today M25.552 - Pain in left hip Referrals Neurosurgery Referral M54.50 - Low back pain, unspecified Medications: New methylprednisolone (Medrol (Arvind)) PO PER PKG DIR 21 ea 0RF Coding Level of Care Code Est Pt Level 2 (54148) Diagnoses Low back pain M54.50
== END 2022-12-15 13:38 | disposition home or self-care (01) ==
PROVIDERS: PCP Internal Medicine; Visit Provider Orthopaedic Surgery
DX: M54.50 Low back pain, unspecified (principal)
CPT/HCPCS: 99212

== ENCOUNTER 2023-01-19 13:20 | Outpatient (REF) | payer OTHER, SELFPAY ==
--- NOTE | ~2023-01-19 | XR_ITS ---
EXAMINATION: XR LUMBOSACRAL SPINE WITH OBLIQUES CLINICAL INFORMATION: Low back pain. COMPARISON: Left hip radiographs of 12/15/2022. MRI lumbar spine 12/08/2022. TECHNIQUE: 4 views of the lumbar spine inclusive of flexion and extension views. FINDINGS: Levoscoliosis of the lumbar spine. Advanced degenerative changes in the imaged lower thoracic spine. Advanced multilevel degenerative changes in the lumbar spine with multilevel loss of disc space height most notable at L1-L2, L2-L3 and L3-L4. Facet arthritis in the lower lumbar spine. Grade 1 retrolisthesis of L3 on L4 with flexion and extension. Mild grade 1 retrolisthesis of L2 on L3 with flexion and extension. XR/XR lumbar spine 4V min IMPRESSION: Multilevel lumbar spondylosis most notable at L1-L2, L2-L3 and L3-L4.
== END 2023-01-19 13:21 | disposition home or self-care (01) ==
LOC: HO.HOSX 13:20
PROVIDERS: PCP Internal Medicine; Referring Provider Orthopaedic Surgery; Visit Provider Physician Assistant
DX: M54.50 Low back pain, unspecified (principal); M54.16 Radiculopathy, lumbar region
CPT/HCPCS: 72110

== ENCOUNTER 2023-01-19 13:20 | Outpatient (AMB) | payer OTHER, SELFPAY ==
--- NOTE | 2023-01-19 13:39 | A.SPINEOV_ITS ---
Intake Intake Visit Reasons: low back pain Intake Note: Ms. Sidhu is here today c/o low back pain. [place] [facility] [place] Heel Shaper Required: No Allergies avocado [AVOCADO] Allergy (Unknown, Verified 12/15/22 13:16) VOMITING bananas Adverse Reaction (Intermediate, Uncoded 12/15/22 13:16) severe nausea Assessment & Plan Assessment & Plan (1) Low back pain: Code(s): M54.50 - Low back pain, unspecified (2) Lumbar radiculopathy: Code(s): M54.16 - Radiculopathy, lumbar region Plan Dear dr Maddox, Thank you for referring Mrs Sidhu to our office today. She is a very nice 62-year-old female who has had severe pain in her left buttock going down into her left hip, groin extending down into her anterior thigh and then into her medial tibial region going down toward her medial ankle. She was seen in your office, she had x-rays done but it was not felt that this was strongly related to any hip pathology so lumbar MRI was ordered. This showed significant disc degeneration, and possible nerve impingement. She was sent to us for evaluation. She tells me that her symptoms are aggravated with standing and walking and better when she sits. Specifically if she is trying to go up and down stairs or up and down any kind of elevation pitch she will start to get the symptoms almost immediately. She has no tingling or numbness, but this is strictly a feeling of intense pain. She starting to get the symptoms at night as well. She takes diclofenac twice a day which does help. She takes tramadol if the pain is severe. She has not had any recent physical therapy or dedicated conservative management. PMH: Right knee arthroscopy, I am told she has severe arthritis by the patient and she needs a knee replacement., history of . Social hx: She does not smoke, drink alcohol use any drugs. Medications: Diclofenac and tramadol Allergies: None Physical exam: Awake alert oriented no acute distress, she walks with a slightly antalgic gait, her strength and reflexes are normal. No clonus. Imaging review: She is MRI done at [facility] showing multilevel degenerative disc disease, at L3-4 there is a retrolisthesis with significant disc collapse and severe facet arthropathy on the left. There is some mild n arrowing of the lateral recess at L3-4. The report suggests that there is narrowing of the lateral recess on the left at L4-5 but I do not see this. I reviewed with Dr. Bazzi, he does not see any compression there either. We did standing flexion-extension x-rays here in the office and shows a slight levoscoliosis on the AP view, no overt instability but there is some slight posterior movement in alignment with flexion and extension. Impression: 62-year-old female presents to the office today for evaluation of a left sided lower extremity radiculopathy which goes down into her buttock, hamstring, anterior thigh, left knee and her medial tibial region. It sounds like it could be a mix of overlapping dermatomes of L3 and L4. She has MRI findings consistent with severe disc collapse at L3-4. There is some mild narrowing of the lateral recess but it is not severe. She has severe facet arthropathy at this level on the left suggesting that there is probably some degree of movement. Her x-rays in the standing flexion-extension views does show some mild increase in the lower retrolisthesis with extension. At this time, in light of any dedicated conservative management, we are recommending she try a cortisone shot with Dr. Ramirez. Either an L3-4 epidural or left L3/L4 TF Fee. I will leave it up to him and his discretion as to what he thinks is best. With regard to the report suggesting that there is compression of the L5 nerve root. Dr. Bazzi and I reviewed this again at length and we do not see any evidence of compression in the lateral recess at this disc level. We think the symptoms are coming from L3-4, so the injection will will actually provide us with some information. I will also send the patient to physical therapy. If the pain escalates and continues to get worse down the road, she would likely be looking at an L3-4 fusion if she has a positive response to the injections. Thank you for allowing us to care for your patient. The total time spent with this visit with this patient was 45 minutes reviewing history, physical exam, lumbar imaging review, and implementation of treatment plan or further diagnostic testing Hiro Bazzi MD,PhD [facility] Orders: Orders XR lumbar spine 4V min 01/19/23 M54.50 - Low back pain, unspecified PT Evaluation and Treatment 01/19/23 M54.16 - Radiculopathy, lumbar region, M54.50 - Low back pain, unspecified Coding Level of Care Code New Pt Level 4 (95384) Diagnoses Low back pain M54.50 Lumbar radiculopathy M54.16
== END 2023-01-19 15:18 | disposition home or self-care (01) ==
PROVIDERS: PCP Internal Medicine; Referring Provider Orthopaedic Surgery; Visit Provider Physician Assistant
DX: M54.50 Low back pain, unspecified (principal); M54.16 Radiculopathy, lumbar region
CPT/HCPCS: 99204

== ENCOUNTER 2023-02-15 05:59 | Outpatient (REF) | payer OTHER, SELFPAY ==
--- NOTE | ~2023-02-15 | FL_ITS ---
EXAMINATION: XR FLUOROSCOPY WITH IMAGES CLINICAL INFORMATION: Radiculopathy, lumbar region. COMPARISON: None available. TECHNIQUE: Fluoroscopy Supervised By: Dr. Eddie Ramirez. Fluoroscopy Time: 0.1 minute. Cumulative Dose: 2.44 mGy. DAP: 0.452 Gycm2. Images: 2. FINDINGS: Image demonstrate needle placement and contrast injection over the left posterior lower lumbar spine FL/FL guidance in treatment room IMPRESSION: Fluoroscopic guidance for lumbar spine pain management procedure.
== END 2023-02-15 06:00 | disposition home or self-care (01) ==
LOC: CF 05:59
PROVIDERS: Visit Provider Internal Medicine
DX: M54.16 Radiculopathy, lumbar region (principal)
CPT/HCPCS: 62323; J1040; Q9967

== ENCOUNTER 2023-02-15 08:51 | Outpatient (AMB) | payer OTHER, SELFPAY ==
--- OUTSIDE RECORDS SUMMARY | 2023-02-15 08:53 | XMS_ITS | Patient Health Record ---
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 Name Role Phone Livan Chance MD Primary Care Provider Bentley Jade Unavailable [phone] REASON FOR REFERRAL No Information MEDICATIONS Medication SIG (Take, Route, Fr equency, Duration) Notes Start Date End Date Status Progesterone Active traMADol HCl Not-Jay ing Diclofenac Active SOCIAL HISTORY Tobacco Use: Social History Observation Description Date Details (start date - stop date) Never Smoker NA - NA Sex Assigned At : Social History Observation Description Sex Assigned At Unknown Tobacco Use/Smoking Question Answer Notes Are you a: nonsmoker Additional Findings: Tobacco Non-User Cu rrent non-smoker, but past smoking history unknown Alcohol Screen Question Answer Notes Did you have a drink contain ing alcohol in the past year? Yes How often did you have a dri nk containing alcohol in the past year? 2 to 3 times a week (3 points) Points 3 Interpretation Positive Tobacco use other than smoking: Question Answer Notes Are you an other tobacco user? No PROBLEMS Problem Type ICD Code Onset Dates Problem Status W/U Status Risk SNOMED Code Notes Problem Hallux valgus (acquired), left foot (M20.12) Active confirmed Acquired hallux valgus (90296201) Problem Hallux valgus (acquired), right foot (M20.11) Active confirmed Acquired hallux valgus (90763781) VITAL SIGNS Height 5 ft 8 in in 09/05/2022 Weight 170 lbs 09/05/2022 BMI 25.85 kg/m2 09/05/2022 Encounters Encounter Location Date Provider Diagnosis [facility] [address] [place] [address] 08/30/2022 [facility] [place] [address] [place] [address] 09/05/2022 Bentley Parikh PLAN OF TREATMENT Pending Test Test Name Order Date X ray : Foot, left 2V 08/21/2017 X ray : Foot, right 2V 08/21/2017 Insurance Providers Payer Name Payer Address Payer Phone Subscriber Number Group Number Insured Name Patient Relationship to Insured Coverage Start Date Coverage End Date [employer] Benefits [address] [address] [place] [address] [id number] Gianna Sidhu Self - patient is the insured MEDICAL (GENERAL) HISTORY Medical History History ICD Code Arthritis Back,Hip,and Knee pain Cataracts Hiatal hernia Reflux ( GERD) Chicken pox covid-19 Sciatica Surgical History Surgery Date(Month/Year) 12/27/1997 right knee arthroscopy 2007 cataract surgery
[2023-02-15 08:54] VITALS: BP 106/68; PULSE 58; RESP 12; O2SAT 99
--- NOTE | 2023-02-15 08:54 | A.OFFVIS_ITS ---
Intake Vital Signs 02/15/23 08:54 02/15/23 09:26 BP 106/68 118/62 Blood Pressure Location Lt brachial Lt brachial Position Sitting Sitting Respiration 12 12 Pulse 58 73 Pulse Source Pulse Oximeter Pulse Oximeter Pulse Oximetry (%) 99 99 Oxygen Delivery Method Room Air Room Air Intake Visit Reasons: Left L3-L4 interlaminar REECE Allergies avocado [AVOCADO] Allergy (Unknown, Verified 02/15/23 08:55) VOMITING bananas Adverse Reaction (Intermediate, Uncoded 02/15/23 08:55) severe nausea HPI Left L3-L4 interlaminar REECE HPI Details Patient presents for scheduled procedure. Denies any recent cough, cold, infection, fever or other significant changes in medical history since last office visit. [facility] Medical History Arthritis GERD (gastroesophageal reflux disease) (~10/2009) History of 2019 novel coronavirus disease (COVID-19) Surgical History H/O esophagogastroduodenoscopy Hx of colonoscopy S/P right knee arthroscopy Family History Father Emphysema lung Mother Uterine cancer Sister Lymphoma Social History Household Members: Spouse Housing: House Alcohol intake: current Alcohol intake frequency: a few times a month Alcohol type: beer Patient Tobacco Use Status: Former Tobacco user Years Smoked: quit 30 years ago e-Cigarette/Vaping Use: Never Used service: No Current occupational status: employed Current occupation: [employer] – [place], [place] MRI - Right HAnded Physical Exam Vital Signs: Last Vital Signs Pulse 73 02/15/23 09:26 Resp 12 02/15/23 09:26 BP 118/62 02/15/23 09:26 Pulse Ox 99 02/15/23 09:26 Oxygen Delivery Method Room Air 02/15/23 09:26 Office Procedures Joint Injection/Drain Joint Injection/Drain Details: Interlaminar epidural steroid injection, L3/4, Left parasaggital After obtaining written consent, pre-procedure blood pressure and heart rate were stable and recorded in the nursing record. The patient was placed in the prone position. The [anatomic] area was widely prepped with chloraprep and draped in sterile fashion. Fluoroscopic guidance was used to identify the desired interlaminar space and for needle placement. Subcutaneous 0.5% lidocaine was used to anesthetize the skin overlying the target. A 20-gauge Madrigal needle was advanced to the epidural space using loss of resistance to contrast technique under fluoroscopic AP and contralateral oblique views. There was no evidence of heme or CSF and no paresthesias were elicited with needle placement. Confirmation of epidural needle placement was performed with 1cc of Isovue 300. Next 3 ml 0.5% lidocaine mixed with 80 mg methylprednisolone was administered epidurally with no pain elicited on injection. The needle tract tubing was then cleared with 1 ml of 0.5% lidocaine. The needle was removed, skin cleansed and a sterile bandage was applied. The patient tolerated the procedure well and no complications were encountered. Following the procedure the patient's vital signs were stable. The patient was discharged home in good condition with post-procedural instructions. Time Out: Immediately prior to the procedure, the following was verbally confirmed that there is a signed consent form and that the correct patient, planned procedure, site and side are consistent with documentation and that necessary equipment and/or blood products are available prior to the start of the case. Complications: none EBL: <5 cc Coding 00628 - Caudal/Lumbar Epidural/Interlaminar with fluoroscopy Procedure code (CPT) selection complete Assessment & Plan Assessment & Plan (1) Lumbar radiculopathy: Code(s): M54.16 - Radiculopathy, lumbar region Plan Patient is status post left parasagittal interlaminar REECE. Patient tolerated procedure well and was discharged home in stable condition with discharge instructions. All questions were answered. We will follow-up via telephone or in clinic to assess response to therapy. A follow-up appointment was made during today's visit. Orders: Orders FL guidance in treatment room Today M54.16 - Radiculopathy, lumbar region Coding Level of Care Code Procedure Only Diagnoses Lumbar radiculopathy M54.16 CPT Codes Coding - Joint 11: 01430 - Caudal/Lumbar Epidural/Interlaminar with fluoroscopy ([id number])
[2023-02-15 09:26] VITALS: BP 118/62; PULSE 73; RESP 12; O2SAT 99
== END 2023-02-15 09:23 | disposition home or self-care (01) ==
LOC: HO.PMCPRC 08:51
PROVIDERS: PCP Internal Medicine; Visit Provider Internal Medicine
DX: M54.16 Radiculopathy, lumbar region (principal)
CPT/HCPCS: 62323

== ENCOUNTER 2023-03-01 10:33 | Outpatient (REF) | payer OTHER, SELFPAY ==
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
== END 2023-03-01 10:34 | disposition home or self-care (01) ==
LOC: HO.XRAY 10:33
PROVIDERS: PCP Internal Medicine; Visit Provider Internal Medicine
DX: M79.644 Pain in right finger(s) (principal)
CPT/HCPCS: 73140

== ENCOUNTER 2023-03-17 07:58 | Outpatient (AMB) | payer OTHER, SELFPAY ==
--- NOTE | 2023-03-17 08:02 | MHC.OFFVIS ---
Intake Vital Signs 03/17/23 08:04 Height 5 ft 8 in Weight 176 lb BMI 26.8 BP 121/63 Blood Pressure Location Lt brachial Position Sitting Respiration 12 Pulse 79 Pulse Source Pulse Oximeter Pulse Oximetry (%) 96 Oxygen Delivery Method Room Air Intake Visit Reasons: s/p Left L3-L4 interlaminar REECE/lvm Allergies avocado [AVOCADO] Allergy (Unknown, Verified 03/17/23 08:05) VOMITING bananas Adverse Reaction (Intermediate, Uncoded 03/17/23 08:05) severe nausea Medication List - Last Reconciled 03/17/23 by Lora Whelan LPN diclofenac sodium 75 mg PO BID estradiol 1 patch topical QWEEK progesterone micronized 100 mg PO DAILY HPI s/p Left L3-L4 interlaminar REECE/lvm HPI Details 62-year-old female who presents today to the office for a status post left L3-L4 interlaminar REECE. The patient reports 75% relief following the procedure. She reports tightness in her back at the end of the day. She has intermittent aching sensations in her hip region down to her leg. She has been noticing some weakness in her left leg when climbing the stairs. She has not visited physical therapy but has been doing stretching exercises at home. She has been using a pillow when sleeping on the sides. Past procedure: 02/15/23: Interlaminar epidural steroid injection, L3/4, Left parasaggital: 75% relief. [facility] Medical History Arthritis GERD (gastroesophageal reflux disease) (~10/2009) History of 2019 novel coronavirus disease (COVID-19) Surgical History H/O esophagogastroduodenoscopy Hx of colonoscopy S/P right knee arthroscopy Family History Father Emphysema lung Mother Uterine cancer Sister Lymphoma Social History Household Members: Spouse Housing: House Alcohol intake: current Alcohol intake frequency: a few times a month Alcohol type: beer Patient Tobacco Use Status: Former Tobacco user Years Smoked: quit 30 years ago e-Cigarette/Vaping Use: Never Used Primitive Makeup service: No Current occupational status: employed Current occupation: [employer] – [place] MRI - Right HAnded Review of Systems Const All systems reviewed & are unremarkable except as noted in HPI and below Physical Exam Vital Signs: Last Vital Signs Pulse 79 03/17/23 08:04 Resp 12 03/17/23 08:04 BP 121/63 03/17/23 08:04 Pulse Ox 96 03/17/23 08:04 Oxygen Delivery Method Room Air 03/17/23 08:04 BMI result Body Mass Index 26.8 General: Appears afebrile. Alert and oriented. Mood and affect appropriate. Follows and participates in conversation appropriately. Respiratory effort is unlabored. Able to transition from sit to stand unassisted. Ambulates with bilaterally normal heel strike and toe off. Results Reviewed Results Reviewed: We reviewed MRI findings, including modic changes at L2-3 and L3-4. 12/08/22: MR LUMBAR SPINE WITHOUT CONTRAST FINDINGS: Mid lumbar levocurvature, apex at L2-L3 with slight right lateral listhesis at L2-L3. Preserved lumbar lordosis. Redemonstrated grade 1 retrolisthesis at L3-4 and L2-L3 greater than L1-L2. Vertebral body heights are maintained. There is no suspicious osseous lesion. Multilevel disc desiccation with progressed moderate L2-L3 and L1-L2 with similar moderate to severe L3-L4 disc height loss. Multilevel endplate Schmorl's nodes, progressed at L2-L3 with mild type I Modic endplate changes, increased and most pronounced at L2-L3. Multilevel anterior osteophytic spurring is seen. Level by level detail as follows: L1-L2: Shallow annular disc bulge without spinal canal or neural foraminal stenosis. L2-L3: Retrolisthesis with annular disc bulge and new inferiorly migrated right foraminal disc extrusion and redemonstrated broad-based left subarticular disc protrusion and associated annular fissure. No spinal canal stenosis, noting redemonstrated abutment of the traversing L3 nerve roots in the subarticular zones. Stable minimal bilateral neural foraminal encroachment. L3-L4: Retrolisthesis with annular disc bulge and progressive right lateral disc osteophyte with mild bilateral facet arthrosis and small greater than right facet joint effusions. No spinal canal stenosis. Unchanged moderate right and mild left neural foraminal stenosis with impingement upon the extraforaminal right L3 nerve root. L4-L5: Annular disc bulge with new left central disc protrusion. Redemonstrated moderate bilateral facet arthrosis. No spinal canal stenosis, noting increased left subarticular zone narrowing and impression upon the traversing left L5 nerve root. No significant neural foraminal stenosis. L5-S1: Shallow annular disc bulge and advanced bilateral facet arthrosis. No spinal canal or neural foraminal stenosis. The conus medullaris terminates at the level of L1-L2. The distal spinal cord is normal in appearance. . No epidural fluid collection, hematoma, or mass. There is mild to moderate fatty atrophy of the lower paraspinal musculature. Moderately distended urinary bladder. Cervical nabothian cysts. New mild right upper pole hydronephrosis and mild left hydroureter, presumably related to distended urinary bladder with either caliectasis versus parapelvic cyst in the left lower pole. The abdominal aorta is of normal contour and caliber. IMPRESSION: 1. Progressive moderate disc height loss at L2-L3 and L1-L2 with increased type I Modic endplate changes. 2. At L4-L5, new left central disc protrusion with increased left subarticular zone narrowing and impression upon the traversing left L5 nerve root. 3. At L3-L4, stable moderate right neural foraminal stenosis with impingement upon the extraforaminal right L3 nerve root. 4. At L2-L3, new inferiorly migrated right foraminal disc extrusion does not contribute to increased stenosis. Stable abutment of the traversing L3 nerve roots in the subarticular zones. 5. New mild right upper pole hydronephrosis and mild left hydroureter, presumably related to distended urinary bladder, with either caliectasis versus parapelvic cyst in the left lower pole. Assessment & Plan Assessment & Plan (1) Lumbar radiculopathy: Code(s): M54.16 - Radiculopathy, lumbar region (2) Vertebrogenic low back pain: Code(s): M54.51 - Vertebrogenic low back pain Plan We reviewed MRI findings, including modic changes at L2-3 and L3-4. She has been having increased pain in her left hip and buttock region, which could be secondary to lumbar nerve root compression. She also has significant right knee osteoarthritis that has been bothered. We briefly discussed PRP/A2M therapy for her multifactorial pain symptoms including lumbar degenerative disease as well as knee osteoarthritis. The patient will continue home exercise program and let us know when her pain symptoms become aggravated again. I also recommended trying the inversion table, swimming, weightless exercise, and core strengthening exercises. Scribed for Dr. Ramirez by Jose Alejandro, medical assistant, on 03/17/2023. I, Dr. Ramirez, have personally reviewed and agree with the information entered by the scribe. Coding Level of Care Code Est Pt Level 4 (58983) Diagnoses Lumbar radiculopathy M54.16 Vertebrogenic low back pain M54.51
[2023-03-17 08:04] VITALS: BP 121/63; PULSE 79; RESP 12; O2SAT 96; BMI 26.8
== END 2023-03-17 08:35 | disposition home or self-care (01) ==
PROVIDERS: PCP Internal Medicine; Visit Provider Internal Medicine
DX: M54.16 Radiculopathy, lumbar region (principal); M54.51 Vertebrogenic low back pain
CPT/HCPCS: 99214

== ENCOUNTER → 2023-03-17 07:58 | Outpatient (BNVA) | payer OTHER, SELFPAY | PROVIDERS: PCP Internal Medicine; Visit Provider Internal Medicine ==

== ENCOUNTER 2023-05-19 14:58 | Outpatient (REF) | payer OTHER, SELFPAY ==
--- NOTE | ~2023-05-19 | MM_ITS ---
EXAMINATION: MM DIAGNOSTIC DIGITAL BREAST TOMOSYNTHESIS, BILATERAL CLINICAL INFORMATION: Two-year follow-up for unchanged probably benign focal asymmetry far posterior slightly medial right breast seen on CC view only. Patient also due for bilateral screening. COMPARISON: Mammography: 05/17/2022, 10/19/2021, 03/26/2021, 03/22/2021 (BI-RADS 0), 03/19/2020, and dating back to 2018. TECHNIQUE: Digital breast tomosynthesis is performed in both the craniocaudal and mediolateral oblique views along with computer-aided detection (CAD). Synthesized 2D images are generated from the tomosynthesis. FINDINGS: The breasts are heterogeneously dense, which may obscure small masses (ACR BI-RADS breast composition Category c). Redemonstration of diffuse fibronodular heterogeneously dense parenchymal pattern, which appears grossly unchanged to prior examinations. The small far posterior slightly medial one view asymmetry on the CC projection is even less conspicuous on today's exam, establishing a two-year stability and benignity. No correlate on the MLO projection. No further follow-up recommended. Otherwise, there are no suspicious masses, suspicious grouped calcifications, or areas of architectural distortion in either breast. No skin or axillary abnormalities. MM/MM tomosynthesis diagnostic BI IMPRESSION: There are no significant changes from prior study. There are no findings suspicious for malignancy. There are stable benign findings, including two-year stable and benign one view asymmetry which has been followed on the CC projection far posterior and slightly medial. No further follow-up recommended. Recommend the patient return to routine annual screening to include both breasts. ASSESSMENT: BI-RADS BI-RADS 2 - Benign Findings RECOMMENDATION: 1 year F/U Results were provided to the patient at time of visit by the technologist. This patient's information was entered into a reminder system with a target due date for their next mammogram.
== END 2023-05-19 14:59 | disposition home or self-care (01) ==
LOC: HO.MAMMO 14:58
PROVIDERS: PCP Internal Medicine; Visit Provider Internal Medicine
DX: R92.2 Inconclusive mammogram (principal)
CPT/HCPCS: 77062; 77066

== ENCOUNTER → 2023-05-19 15:00 | Outpatient (BNV) | payer OTHER, SELFPAY | PROVIDERS: PCP Internal Medicine; Visit Provider Radiology Diagnostic Radiology | DX: R92.8 Other abnormal and inconclusive findings on diagnostic imaging of breast (principal) | CPT/HCPCS: 77062; 77066 ==

== ENCOUNTER 2023-06-22 06:14 | Outpatient (REF) | payer OTHER, SELFPAY ==
--- NOTE | ~2023-06-22 | FL_ITS ---
EXAMINATION: XR FLUOROSCOPY WITH IMAGES CLINICAL INFORMATION: Radiculopathy. COMPARISON: None available. TECHNIQUE: Fluoroscopy Supervised By: Dr. Ramirez. Fluoroscopy Time: 0.1 min. Cumulative Dose: 1.98 mGy. DAP: 0.0208 Gycm2. Images: 2. FINDINGS: Intraoperative fluoroscopy and spot films were performed during a procedure in the OR. Spinal needle is present in the epidural space with surrounding contrast just to the left of midline. Please see Dr. Ramirez' report for complete details. FL/FL guidance in treatment room IMPRESSION: Intraoperative fluoroscopy and spot films were obtained. Please see Dr. Ramirez' report for complete details.
== END 2023-06-22 06:15 | disposition home or self-care (01) ==
LOC: CF 06:14
PROVIDERS: Visit Provider Internal Medicine
DX: M54.16 Radiculopathy, lumbar region (principal)
CPT/HCPCS: 62323; J1010; J3301; Q9967

== ENCOUNTER 2023-06-22 08:25 | Outpatient (AMB) | payer OTHER, SELFPAY ==
--- OUTSIDE RECORDS SUMMARY | 2023-06-22 08:26 | XMS_ITS | Patient Health Record ---
[facility] Address [address] [place] [address] Care Team Providers Care Railroad Hand Name Role Phone Livan Chance MD Primary Care Provider Bentley Jade Unavailable [phone] REASON FOR REFERRAL No Information MEDICATIONS Medication [...] foot (M20.12) Active confirmed Acquired hallux valgus (40019840) Problem Hallux valgus (acquired), right foot (M20.11) Active confirmed Acquired hallux valgus ([id number]) VITAL SIGNS Height 5 ft 8 in in 09/05/2022 Weight 170 lbs 09/05/2022 BMI 25.85 kg/m2 09/05/2022 Encounters Encounter Location Date Provider Diagnosis [facility] [address] [place] [address] 08/30/2022 [facility] [address] [place] [address] 09/05/2022 Bentley Parikh PLAN OF TREATMENT Pending Test Test Name Order Date X ray : Foot, left 2V 08/21/2017 X ray : Foot, right 2V 08/21/2017 Insurance Providers Payer Name Payer Address Payer Phone Subscriber Number Group Number Insured Name Patient Relationship to Insured Coverage Start Date Coverage End Date Blue Benefits [address] [address] [place] [address] [id number] Gianna Sidhu Self - patient is the insured MEDICAL (GENERAL) HISTORY Medical History History ICD Code Arthritis Back,Hip,and Knee pain Cataracts Hiatal hernia Reflux ( GERD) Chicken pox covid-19 Sciatica Surgical History Surgery Date(Month/Year) 12/27/1997 right knee arthroscopy 2007 cataract surgery
[2023-06-22 08:30] VITALS: BP 112/62; PULSE 62; RESP 16; O2SAT 100; BMI 26.8
--- NOTE | 2023-06-22 08:30 | A.OFFVIS_ITS ---
Vital Signs 06/22/23 08:30 06/22/23 09:29 Height 5 ft 8 in Weight 176 lb BMI 26.8 BP 112/62 124/80 Blood Pressure Location Lt brachial Lt brachial Position Sitting Sitting Respiration 16 16 Pulse 62 Pulse Source Pulse Oximeter Pulse Oximeter Pulse Oximetry (%) 100 80 L Oxygen Delivery Method Room Air Room Air Comment Pre-Op Post-Op Intake Visit Reasons: Left L3-L4 interlaminar REECE Allergies avocado [AVOCADO] Allergy (Unknown, Verified 03/17/23 08:05) VOMITING bananas Adverse Reaction (Intermediate, Uncoded 03/17/23 08:05) severe nausea HPI HPI Left L3-L4 interlaminar REECE: Details: Patient presents for scheduled procedure. Denies any recent cough, cold, infection, fever or other significant changes in medical history since last office visit. [facility] Medical History Arthritis GERD (gastroesophageal reflux disease) (~10/2009) History of 2019 novel coronavirus disease (COVID-19) Surgical History H/O esophagogastroduodenoscopy Hx of colonoscopy S/P right knee arthroscopy Family History Father Emphysema lung Mother Uterine cancer Sister Lymphoma Social History Household Members: Spouse Housing: House Alcohol intake: current Alcohol intake frequency: a few times a month Alcohol type: beer Patient Tobacco Use Status: Former Tobacco user Years Smoked: quit 30 years ago e-Cigarette/Vaping Use: Never Used service: No Current occupational status: employed Current occupation: [employer] [place] - Right HAnded Physical Exam Vital Signs: Last Vital Signs Pulse 62 06/22/23 08:30 Resp 16 06/22/23 08:30 BP 112/62 06/22/23 08:30 Pulse Ox 100 06/22/23 08:30 Oxygen Delivery Method Room Air 06/22/23 08:30 BMI result Body Mass Index 26.8 Office Procedures Joint Injection/Drain Joint Injection/Drain Details: Interlaminar epidural steroid injection, L3/4, Left parasaggital After obtaining written consent, pre-procedure blood pressure and heart rate were stable and recorded in the nursing record. The patient was placed in the prone position. The lumbar area was widely prepped with chloraprep and draped in sterile fashion. Fluoroscopic guidance was used to identify the desired interlaminar space and for needle placement. Subcutaneous 0.5% lidocaine was used to anesthetize the skin overlying the target. A 20-gauge Madrigal needle was advanced to the epidural space using loss of resistance to contrast technique under fluoroscopic AP and contralateral oblique views. There was no evidence of heme or CSF and no paresthesias were elicited with needle placement. Confirmation of epidural needle placement was performed with 1cc of omnipaque 180. Next 3 ml 0.5% lidocaine mixed with 80 mg triamcinolone was administered epidurally with no pain elicited on injection. The needle tract tubing was then cleared with 1 ml of 0.5% lidocaine. The needle was removed, skin cleansed and a sterile bandage was applied. The patient tole rated the procedure well and no complications were encountered. Following the procedure the patient's vital signs were stable. The patient was discharged home in good condition with post-procedural instructions. Time Out: Immediately prior to the procedure, the following was verbally confirmed that there is a signed consent form and that the correct patient, planned procedure, site and side are consistent with documentation and that necessary equipment and/or blood products are available prior to the start of the case. Complications: none EBL: <5 cc Coding 79598 - Caudal/Lumbar Epidural/Interlaminar with fluoroscopy Procedure code (CPT) selection complete Assessment & Plan Assessment & Plan (1) Lumbar radiculopathy: Code(s): M54.16 - Radiculopathy, lumbar region Category: Medical Plan Patient is status post left parasagittal interlaminar L3-L4 REECE. Patient tolerated procedure well and was discharged home in stable condition with discharge instructions. All questions were answered. We will follow-up via telephone or in clinic to assess response to therapy. A follow-up appointment was made during today's visit. Orders: Orders FL guidance in treatment room Today M54.16 - Radiculopathy, lumbar region Coding Level of Care Code Procedure Only Diagnoses Lumbar radiculopathy M54.16 CPT Codes Coding - Joint 11: 00819 - Caudal/Lumbar Epidural/Interlaminar with fluoroscopy ([id number])
[2023-06-22 09:29] VITALS: BP 124/80; RESP 16; O2SAT 80
== END 2023-06-22 09:31 | disposition home or self-care (01) ==
LOC: HO.PMCPRC 08:25
PROVIDERS: PCP Internal Medicine; Visit Provider Internal Medicine
DX: M54.16 Radiculopathy, lumbar region (principal)
CPT/HCPCS: 62323

== ENCOUNTER 2023-08-04 11:01 | Outpatient (AMB) | payer OTHER, SELFPAY ==
--- NOTE | 2023-08-04 11:06 | A.OFFVIS_ITS ---
Vital Signs 08/04/23 11:07 Height 5 ft 8 in Weight 176 lb BMI 26.8 BP 128/71 Blood Pressure Location Lt brachial Position Sitting Respiration 14 Pulse 77 Pulse Source Pulse Oximeter Pulse Oximetry (%) 97 Oxygen Delivery Method Room Air Intake Visit Reasons: s/p Left L3-L4 interlaminar REECE Allergies avocado [AVOCADO] Allergy (Unknown, Verified 08/04/23 11:07) VOMITING bananas Adverse Reaction (Intermediate, Uncoded 08/04/23 11:07) severe nausea Medication List - Last Reconciled 08/04/23 by Lora Whelan LPN diclofenac sodium 75 mg PO BID estradiol 1 patch topical QWEEK progesterone micronized 100 mg PO DAILY HPI HPI s/p Left L3-L4 interlaminar REECE: Details: 63-year-old female who presents today to the office for a status post left L3-L4 interlaminar REECE. The patient reports 60-70% relief following the procedure, with resolution of leg symptoms. Her back pain is most bothersome compared to the leg pain. She noticed a mild improvement in her pain. She has no pain sensation when lying down. She reports radiating pain down her legs. She felt numbing sensations after the first injection. Sudden movements like twisting or bending aggravate the pain.? Past procedures 06/22/23: Interlaminar epidural steroid injection, L3/4, Left parasaggital: 60- 70% relief. 02/15/23: Interlaminar epidural steroid injection, L3/4, Left parasaggital: 75% relief. [facility] Medical History Arthritis GERD (gastroesophageal reflux disease) (~10/2009) History of 2019 novel coronavirus disease (COVID-19) Surgical History H/O esophagogastroduodenoscopy Hx of colonoscopy S/P right knee arthroscopy Family History Father Emphysema lung Mother Uterine cancer Sister Lymphoma Social History Household Members: Spouse Housing: House Alcohol intake: current Alcohol intake frequency: a few times a month Alcohol type: beer Patient Tobacco Use Status: Former Tobacco user Years Smoked: quit 30 years ago e-Cigarette/Vaping Use: Never Used service: No Current occupational status: employed Current [place]: [employer] - Right HAnded Review of Systems Const All systems reviewed & are unremarkable except as noted in HPI and below Physical Exam Vital Signs: Last Vital Signs Pulse 77 08/04/23 11:07 Resp 14 08/04/23 11:07 BP 128/71 08/04/23 11:07 Pulse Ox 97 08/04/23 11:07 Oxygen Delivery Method Room Air 08/04/23 11:07 BMI result Body Mass Index 26.8 General: Appears afebrile. Alert and oriented. Mood and affect appropriate. Follows and participates in conversation appropriately. Respiratory effort is unlabored. Able to transition from sit to stand unassisted. Ambulates with bilaterally normal heel strike and toe off. Results Reviewed Results Reviewed: No imaging is available for review. Assessment & Plan Assessment & Plan (1) Vertebrogenic low back pain: Code(s): M54.51 - Vertebrogenic low back pain Category: Medical (2) Lumbar spondylosis: Code(s): M47.816 - Spondylosis without myelopathy or radiculopathy, lumbar region Category: Medical (3) Low back pain: Code(s): M54.50 - Low back pain, unspecified Category: Medical Plan Discussed temporary nerve stimulator vs. radiofrequency ablation as a possible treatment options for axial LBP. Reviewed the MRI scan result again with the patient that showed degeneration of the vertebral endplates as well as the facets. We discussed a trial of peripheral nerve stimulator. If we do proceed with the basi-vertebral nerve ablation, we will likely do it at L2, L3 and L4. 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 Scribed for Dr. Ramirez by Jose Alejandro, medical consultant, on 08/04/2023. I, Dr. Ramirez, have personally reviewed and agree with the information entered by the scribe. Coding Level of Care Code Est Pt Level 4 (40694) Diagnoses Vertebrogenic low back pain M54.51 Lumbar spondylosis M47.816 Low back pain M54.50
[2023-08-04 11:07] VITALS: BP 128/71; PULSE 77; RESP 14; O2SAT 97; BMI 26.8
== END 2023-08-04 11:21 | disposition home or self-care (01) ==
PROVIDERS: PCP Internal Medicine; Visit Provider Internal Medicine
DX: M54.51 Vertebrogenic low back pain (principal); M47.816 Spondylosis without myelopathy or radiculopathy, lumbar region; M54.50 Low back pain, unspecified
CPT/HCPCS: 99214

== ENCOUNTER → 2023-08-04 11:01 | Outpatient (BNVA) | payer OTHER, SELFPAY | PROVIDERS: PCP Internal Medicine; Visit Provider Internal Medicine ==

== ENCOUNTER 2023-09-26 08:05 | Outpatient (REF) | payer OTHER, SELFPAY ==
[2023-09-26 08:26] LABS: MANUAL DIFF FLAG NO
[2023-09-26 08:56] LABS: Basophils Absolute Auto 0.1 X10*3/uL (0.0-0.2); Basophils Percent Auto 1.3 % (0-2); Eosinophils Absolute Auto 0.7 X10*3/uL (0.0-0.4); Eosinophils Percent Auto 10.3 % (0-4); Hematocrit 42.1 % (37.0-47.0); Imm Gran Abs Auto 0.02 X10*3/uL (0.00-0.03); Imm Gran Pct Auto 0.3 % (0.0-0.4); Lymphocytes Absolute Auto 2.5 X10*3/uL (1.2-4.9); Lymphocytes Percent Auto 37.4 % (20-40); Mean Corpuscular HGB Conc 33.3 g/dl (31.0-35.0); Mean Corpuscular Volume 90.1 fL (80.0-98.0); Mean Platelet Volume 9.1 fL (9.4-12.3); Monocytes Absolute Auto 0.7 X10*3/uL (0.1-1.2); Monocytes Percent Auto 9.9 % (2-11); Neutrophils Absolute Auto 2.7 x10*3/uL (2.0-8.3); Neutrophils Percent Auto 40.8 % (45-73); Platelet Count 287 X10*3/uL (160-400); Red Blood Count 4.67 X10*6/uL (4.20-5.50); Red Cell Distribution Width 12.8 % (11.0-16.0); White Blood Count 6.7 X10*3/uL (4.8-10.8)
[2023-09-26 09:28] LABS: Estimated Average Glucose 103 mg/dL; Hemoglobin A1c % 5.2 % (<6.0)
[2023-09-26 09:55] LABS: Alanine Aminotransferase 25 U/L (0-31); Albumin Level 4.5 g/dL (3.5-5.0); Alkaline Phosphatase 75 U/L (39-117); Anion Gap 11 (12-20); Aspartate Amino Transferase 22 U/L (5-31); Bilirubin Total 0.8 mg/dL (0.0-1.0); Blood Urea Nitrogen 16 mg/dL (9-16); Calcium 9.9 mg/dL (8.4-10.2); Carbon Dioxide 29 mmol/L (22-29); Chloride 106 mmol/L (96-108); Estimated Glomerular Filt Rate > 60; Glucose Random 95 mg/dL (60-115); Potassium 4.6 mmol/L (3.3-5.1); Sodium 141 mmol/L (135-145); Total Protein 7.2 g/dL (6.5-8.0)
[2023-09-26 10:16] LABS: Thyroid Stimulating Hormone 2.12 uIU/mL (0.32-4.0)
== END 2023-09-26 08:06 | disposition home or self-care (01) ==
LOC: HO.LAB 08:05
PROVIDERS: PCP Internal Medicine; Visit Provider Internal Medicine
DX: M54.50 Low back pain, unspecified (principal); G89.29 Other chronic pain; R53.81 Other malaise; R53.83 Other fatigue; E55.9 Vitamin D deficiency, unspecified; R73.01 Impaired fasting glucose
CPT/HCPCS: 36415; 80053; 82306; 83036; 84443; 85025

== ENCOUNTER 2023-11-07 07:58 | Outpatient (REF) | payer OTHER, SELFPAY ==
--- NOTE | ~2023-11-07 | XR_ITS ---
EXAMINATION: XR KNEE, RIGHT CLINICAL INFORMATION: Right knee pain COMPARISON: 08/02/2022 TECHNIQUE: Three views of the right knee. FINDINGS: Marked medial compartment narrowing with sclerosis and prominent marginal osteophytes. Marginal osteophytes in the lateral and patellofemoral compartments. No fracture. No significant joint effusion. XR/XR knee RT 3V IMPRESSION: Severe medial compartment and mild to moderate lateral and patellofemoral compartment osteoarthritis. Electronically signed by: Min Abarca MD 12/13/2023 03:33 PM EDT
== END 2023-11-07 07:59 | disposition home or self-care (01) ==
LOC: HO.HOSX 07:58
PROVIDERS: PCP Internal Medicine; Visit Provider Orthopaedic Surgery
DX: M25.561 Pain in right knee (principal)
CPT/HCPCS: 73562

== ENCOUNTER 2023-11-07 09:36 | Outpatient (AMB) | payer OTHER, SELFPAY ==
[2023-11-07 09:38] VITALS: BMI 26.8
--- NOTE | 2023-11-07 09:38 | MHC.OFFVIS ---
Vital Signs 11/07/23 09:38 Height 5 ft 8 in Weight 176 lb BMI 26.8 Intake Visit Reasons: Right knee pain Intake Note: Gianna is a 63 year old female who presents with complaints of progressively worsening right knee pain. She describes her pain as sharp and severe in nature, 10/10. Her pain has gotten worse over the last few years in spite of continued non operative treatments. The patient has difficulty walking even short distances because of her pain. She has tried Tylenol and anti-inflammatory medicines which gave her minimal relief. She has also done physical therapy exercises which aggravated her pain. The patient has had injections in the past. The most recent injection gave her minimal relief. The patient states that her right knee pain is now interfering with her activities of daily living and her ability to sleep well through the night. that presents today with right knee pain, and to discuss surgery. Allergies avocado [AVOCADO] Allergy (Unknown, Verified 11/07/23 09:38) VOMITING bananas Adverse Reaction (Intermediate, Uncoded 08/04/23 11:07) severe nausea Medication List - Last Reconciled 11/08/23 by Zay Maddox MD diclofenac sodium 75 mg PO BID estradiol 1 patch topical QWEEK progesterone micronized 100 mg PO DAILY [facility] Medical History Arthritis History of 2019 novel coronavirus disease (COVID-19) GERD (gastroesophageal reflux disease) (~10/2009) Surgical History S/P right knee arthroscopy Hx of colonoscopy H/O esophagogastroduodenoscopy Family History Father Emphysema lung Mother Uterine cancer Sister Lymphoma Social History Household Members: Spouse Housing: House Alcohol intake: current Alcohol intake frequency: a few times a month Alcohol type: beer Patient Tobacco Use Status: Former Tobacco user Years Smoked: quit 30 years ago e-Cigarette/Vaping Use: Never Used service: No Current occupational status: employed Current occupation: [employer] [place] - Right HAnded Physical Exam Vital Signs: BMI result Body Mass Index 26.8 Const Other: Well-nourished well-developed very friendly female awake alert and oriented x3 in no acute distress Extrem Other: Bilateral lower extremity examination shows good capillary refill, no skin lesions noted, normal sensation light touch Right knee examination shows a minimal effusion, palpable crepitus with range of motion, pain with range of motion, range of motion from -3 degrees to 115 degrees, no instability Results Reviewed Results Reviewed: X-rays of the patient's right knee show end-stage degenerative joint disease with grade 4 [id number] arthritis, subchondral sclerosis, osteophyte formation, no acute bony abnormalities Assessment & Plan Assessment & Plan (1) Right knee pain: Code(s): M25.561 - Pain in right knee Category: Medical Plan Ms. Sidhu presents with progressively worsening right knee pain due to end-stage degenerative joint disease. I had a lengthy discussion with the patient regarding the treatment options. At this point she has failed continued non operative treatments. The risks and benefits of right total knee replacement surgery were discussed at length with the patient. The patient wishes to proceed with surgery. She will be scheduled for next available date. sales representative facility services will be consulted following her surgery for home physical therapy and nursing. The patient will follow-up as instructed. Feel free to call me at any time should questions regarding her orthopedic management arise. I spent 21 minutes in reviewing the patient's records and imaging studies, seeing the patient and documenting in the medical record. Orders: Orders XR knee RT 3V 11/07/23 M25.561 - Pain in right knee Coding Level of Care Code Est Pt Level 3 (40445) Complex EM visit Add On G2211 Diagnoses Right knee pain M25.561
== END 2023-11-07 10:11 | disposition home or self-care (01) ==
PROVIDERS: PCP Internal Medicine; Visit Provider Orthopaedic Surgery
DX: M17.11 Unilateral primary osteoarthritis, right knee (principal)
CPT/HCPCS: 99213

== ENCOUNTER 2023-12-04 11:04 | Outpatient (AMB) | payer OTHER, SELFPAY ==
--- OUTSIDE RECORDS SUMMARY | 2023-12-04 11:06 | XMS_ITS ---
Author Organization [facility] Address [address] [place] [address] Care Team Providers Care Sand Car Worker Name Role Phone Livan Chance MD Primary Care Provider Bentley Jade [phone] MEDICATIONS Medication SIG (Take, Route, Fr equency, [...] Are you an other tobacco user? No VITAL SIGNS Height 5 ft 8 in in 09/05/2022 Weight 170 lbs 09/05/2022 BMI 25.85 kg/m2 09/05/2022 Encounters Encounter Location Date Provider Diagnosis [facility] [address] [place] [address] 09/05/2022 Bentley Parikh PLAN OF TREATMENT No Information
--- OUTSIDE RECORDS SUMMARY | 2023-12-04 11:06 | XMS_ITS | Patient Health Record ---
[facility] Address [address] [facility] [place] [address] Care Team Providers Care Lot Boss Name Role Phone Livan Chance MD Primary Care Provider Bentley Jade Unavailable [phone] REASON FOR REFERRAL No Information MEDICATIONS Medication [...] foot (M20.12) Active confirmed Acquired hallux valgus ([id number]) Problem Hallux valgus (acquired), right foot (M20.11) Active confirmed Acquired hallux valgus ([id number]) PLAN OF TREATMENT Pending Test Test Name Order Date X ray : Foot, left 2V 08/21/2017 X ray : Foot, right 2V 08/21/2017 Insurance Providers Payer Name Payer Address Payer Phone Subscriber Number Group Number Insured Name Patient Relationship to Insured Coverage Start Date Coverage End Date Blue Benefits [address] [address] [place] [address] [id number] Gianna Sidhu Self - patient is the insured MEDICAL (GENERAL) HISTORY Medical History History ICD Code Arthritis Back,Hip,and Knee pain Cataracts Hiatal hernia Reflux ( GERD) Chicken pox covid-19 Sciatica Surgical History Surgery Date(Month/Year) 12/27/1997 right knee arthroscopy 2007 cataract surgery
--- OUTSIDE RECORDS SUMMARY | 2023-12-04 11:06 | XMS_ITS ---
Author Organization [facility] Address [address] [place] [address] Care Team Providers Care Display Decorator Name Role Phone Livan Chance MD Primary Care Provider Unavaila Bentley Coreas [phone] REASON FOR VISIT cx ON 09/05 Encounters Encounter Location Date Provider Diagnosis [facility] [address] [place] [address] 08/30/2022 Bentley Parikh PLAN OF TREATMENT No Information
--- NOTE | 2023-12-04 11:07 | MHC.OFFVIS ---
Vital Signs 12/04/23 11:08 Height 5 ft 8 in Weight 176 lb BMI 26.8 BP 122/78 Blood Pressure Location Lt brachial Position Sitting Respiration 14 Pulse 68 Pulse Source Pulse Oximeter Pulse Oximetry (%) 99 Oxygen Delivery Method Room Air Intake Visit Reasons: Back Pain Allergies banana Allergy (Severe, Verified 12/18/23 13:45) severe nausea avocado [AVOCADO] Allergy (Intermediate, Verified 12/18/23 13:45) Vomiting Medication List - Last Reconciled 12/04/23 by Lora Whelan LPN diclofenac sodium 75 mg PO BID estradiol 1 patch topical QWEEK progesterone micronized 100 mg PO DAILY HPI HPI Back Pain: Details: 63-year-old female who presents today to the office for back pain. She reports back pain more localized in the hip and sacroiliac joint region. She has difficulty walking even short distances because of her pain and struggles with gait imbalance. She has received two injections in the past. She reports progressively worsening right knee pain. She describes her pain as sharp and severe in nature and rates her pain at 10/10 in intensity. Her pain has gotten worse over the last few years in spite of continued nonoperative treatments. She has tried Tylenol and anti-inflammatory medicines, which gave her minimal relief. She has also done physical therapy exercises, which aggravated her pain. She has had injections in the past. The most recent injection gave her minimal relief. The patient states that her right knee pain is now interfering with her activities of daily living and her ability to sleep well through the night. She is scheduled for knee surgery on 01/15/2024. Past procedures 06/22/23: Interlaminar epidural steroid injection, L3/4, Left parasaggital: 60-70% relief. 02/15/23: Interlaminar epidural steroid injection, L3/4, Left parasaggital: 75% relief. [facility] Medical History (Updated 12/18/23 @ 12:11 by Farida Pearce RN) Hiatal hernia Back pain Lumbar spondylosis Arthritis GERD (gastroesophageal reflux disease) (~10/2009) Surgical History (Updated 12/18/23 @ 12:12 by Farida Pearce RN) Hx of section Hx of bilateral cataract extraction S/P right knee arthroscopy Hx of colonoscopy H/O esophagogastroduodenoscopy Family History Father Emphysema lung Mother Uterine cancer Sister Lymphoma Social History Household Members: Spouse Housing: House Are you a primary client care consultant to a significant other at home: No Do you presently have visiting nurse or other home services: No Alcohol intake: current Alcohol intake frequency: a few times a month Alcohol type: beer Patient Tobacco Use Status: Former Tobacco user Tobacco use type: Cigarette Years Smoked: 5 e-Cigarette/Vaping Use: Never Used Use of substances other than those prescribed or required for medical reasons: No Have you been hit, kicked, punched, or otherwise hurt by someone within the past year? If so, by whom?: No Spiritual Healthcare Practices: none [facility] Practices: Buddhist Cultural Healthcare Practices: none Are you DNR?: No Advance Directives: No ( is primary contact) Advance Directives Information Provided: Yes (brochure given) Advance Directives on File: No Recently lost weight without trying: No Eating poorly because of decreased appetite: No Nutrition Risks: No Nutritional Risk FDLMP: n/a Poor oral hygiene: No (multiple crowns) service: No Current occupational status: employed Current occupation: [employer] [place] - Right HAnded Review of Systems Const All systems reviewed & are unremarkable except as noted in HPI and below Physical Exam Vital Signs: Last Vital Signs Pulse 68 12/04/23 11:08 Resp 14 12/04/23 11:08 BP 122/78 12/04/23 11:08 Pulse Ox 99 12/04/23 11:08 Oxygen Delivery Method Room Air 12/04/23 11:08 BMI result Body Mass Index 26.8 General: Appears afebrile. Alert and oriented. Mood and affect appropriate. Follows and participates in conversation appropriately. Respiratory effort is unlabored. Able to transition from sit to stand unassisted. Ambulates with bilaterally normal heel strike and toe off. Results Reviewed Results Reviewed: No imaging is available for review. Assessment & Plan Assessment & Plan (1) Sacroiliac dysfunction: Code(s): M53.3 - Sacrococcygeal disorders, not elsewhere classified Category: Medical Plan We will schedule her for a right-sided sacroiliac joint injection for her low back pain secondary to gait imbalance leading to SI joint dysfunction and irritation. Discussed the risks and benefits of the procedure with the patient in detail. All questions were answered. The patient is on board with the plan. Justification for interventional therapy: ? Patient with average pain > 6/10 ? Patient has exhausted conservative therapy ? Patient unable to tolerate physical therapy due to pain . Patient has a good understanding of their pain condition and has appropriate mental and social support Scribed for Dr. Ramirez by Jose Alejandro, medical education manager, on 12/04/2023. I, Dr. Ramirez, have personally reviewed and agree with the information entered by the scribe. Coding Level of Care Code Est Pt Level 3 (58198) Diagnoses Sacroiliac dysfunction M53.3
[2023-12-04 11:08] VITALS: BP 122/78; PULSE 68; RESP 14; O2SAT 99; BMI 26.8
== END 2023-12-04 11:15 | disposition home or self-care (01) ==
LOC: HO.PMC 11:04
PROVIDERS: PCP Internal Medicine; Visit Provider Internal Medicine
DX: M53.3 Sacrococcygeal disorders, not elsewhere classified (principal)
CPT/HCPCS: 99213

== ENCOUNTER → 2023-12-04 11:04 | Outpatient (BNVA) | payer OTHER, SELFPAY | PROVIDERS: PCP Internal Medicine; Visit Provider Internal Medicine ==

== ENCOUNTER 2023-12-12 13:23 | Outpatient (REF) | payer OTHER, SELFPAY | END 2023-12-12 13:24 | disposition home or self-care (01) | LOC: HO.HOSX 13:23 | PROVIDERS: Visit Provider Orthopaedic Surgery | DX: Z13.89 Encounter for screening for other disorder (principal) ==

== ENCOUNTER 2023-12-13 12:36 | Outpatient (REF) | payer OTHER, SELFPAY ==
--- NOTE | ~2023-12-13 | XR_ITS ---
EXAMINATION: XR KNEE, LEFT CLINICAL INFORMATION: Left knee pain COMPARISON: Radiographs 11/07/2023 TECHNIQUE: Three views of the left knee. FINDINGS: Mild medial compartment osteoarthritis. Small joint effusion. No fracture or suspicious bone lesion. XR/XR knee LT 3V IMPRESSION: Mild medial compartment osteoarthritis with a small joint effusion. Electronically signed by: Min Abarca MD 12/13/2023 03:32 PM EDT
== END 2023-12-13 12:37 | disposition home or self-care (01) ==
LOC: HO.HOSX 12:36
PROVIDERS: PCP Internal Medicine; Visit Provider Orthopaedic Surgery
DX: M25.562 Pain in left knee (principal)
CPT/HCPCS: 73562

== ENCOUNTER 2023-12-13 12:36 | Outpatient (AMB) | payer OTHER, SELFPAY ==
--- NOTE | 2023-12-13 12:45 | MHC.OFFVIS ---
Intake Visit Reasons: Left knee pain and giving way Intake Note: Gianna is a 63 year old female who presents with complaints of progressively worsening left knee pain and giving way. The patient is scheduled to undergo right total knee replacement surgery in January. She states that several weeks ago she twisted her left knee going down the stairs. She had acute onset of pain along the medial aspect of her knee. Since that time her left knee has been ?giving out? several times per day. She has tried anti-inflammatory medicines and Tylenol which gave her minimal relief. She did undergo right knee arthroscopic surgery several years ago. She got fairly good relief from that surgery initially. She has tried physical therapy exercises which aggravated her pain. Allergies avocado [AVOCADO] Allergy (Unknown, Verified 12/13/23 12:51) VOMITING bananas Adverse Reaction (Intermediate, Uncoded 12/04/23 11:10) severe nausea Medication List - Last Reconciled 12/13/23 by Zay Maddox MD diclofenac sodium 75 mg PO BID estradiol 1 patch topical QWEEK progesterone micronized 100 mg PO DAILY [facility] Medical History Arthritis History of 2019 novel coronavirus disease (COVID-19) GERD (gastroesophageal reflux disease) (~10/2009) Surgical History S/P right knee arthroscopy Hx of colonoscopy H/O esophagogastroduodenoscopy Family History Father Emphysema lung Mother Uterine cancer Sister Lymphoma Social History Household Members: Spouse Housing: House Alcohol intake: current Alcohol intake frequency: a few times a month Alcohol type: beer Patient Tobacco Use Status: Former Tobacco user Years Smoked: quit 30 years ago e-Cigarette/Vaping Use: Never Used service: No Current occupational status: employed Current occupation: [employer] [place] MRI - Right HAnded Physical Exam Const Other: Well-nourished well-developed very friendly female awake alert and oriented x3 in no acute distress Extrem Other: Bilateral lower extremity examination shows good capillary refill, no skin lesions noted, normal sensation light touch Left knee examination shows a minimal effusion, minimal crepitus with range of motion, tenderness along her medial joint line, positive Pete's test, no instability Results Reviewed Results Reviewed: Standing full weight-bearing x-rays of the patient's left knee show mild diffuse joint space narrowing, no acute bony abnormalities Assessment & Plan Assessment & Plan (1) Tear of medial meniscus of left knee: Code(s): S83.242A - Other tear of medial meniscus, current injury, left knee, initial encounter Category: Medical Plan Mrs. Sidhu presents with progressively worsening left knee pain and mechanical symptoms most likely due to a tear of her medial meniscus. Thus, I will send the patient for an MRI of her left knee for further evaluation. I will contact her by phone once the MRI results are available. Feel free to call me at any time should questions regarding her orthopedic management arise. I spent 21 minutes in reviewing the patient's records and imaging studies, seeing the patient and documenting in the medical record. Orders: Orders MR knee LT wo con Today S83.242A - Other tear of medial meniscus, current injury, left knee, initial encounter XR knee LT 3V Today M25.562 - Pain in left knee Coding Level of Care Code Est Pt Level 3 (16419) Complex EM visit Add On G2211 Diagnoses Tear of medial meniscus of left knee S83.242A
== END 2023-12-13 12:58 | disposition home or self-care (01) ==
LOC: HO.HOS 12:36
PROVIDERS: PCP Internal Medicine; Visit Provider Orthopaedic Surgery
DX: S83.242A Other tear of medial meniscus, current injury, left knee, initial encounter (principal)
CPT/HCPCS: 99213

== ENCOUNTER 2023-12-13 14:25 | Outpatient (REF) | payer OTHER, SELFPAY ==
--- NOTE | ~2023-12-13 | MR_ITS ---
EXAMINATION: MR KNEE WITHOUT CONTRAST, LEFT CLINICAL INFORMATION: Injury, medial meniscal tear. COMPARISON: X-ray 12/13/2023 TECHNIQUE: MRI of the knee without contrast was performed using routine sequences on a high-field scanner. FINDINGS: MENISCI: Medial Meniscus: Complex tear of the posterior horn. This includes irregular undersurface and superior surface articular surface tearing, a vertical tear, and inner margin tear. Small parameniscal cyst. Irregular undersurface and free edge tearing in the body, with meniscal tissue subluxed into the meniscotibial recess. Anterior horn degenerative fraying/tear, with subjacent small parameniscal cyst. Lateral Meniscus: Anterior root/central anterior horn degenerative fraying/tear. Small cystic focus anterior to this could represent a synovial recess or small parameniscal cyst. LIGAMENTS: Cruciate: Diffuse increased T2 signal in the ACL, with ill-definition of the posterior fibers. This could reflect mucoid degeneration, partial tearing, or a combination of these. Mucoid degeneration of the PCL. Collateral: Intact MCL. Intact LCL complex. EXTENSOR MECHANISM: Intact. ARTICULAR CARTILAGE/BONE: Patellofemoral Compartment: Mild lateral patellar subluxation. Chondral fissuring in the medial patellar facet. Patchy chondral heterogeneity and irregularity in the lateral trochlea. Medial Compartment: Marginal osteophytes. Chondral thinning in the posterior weightbearing femoral condyle. Tibial subchondral cysts. Degenerative cyst underlying the tibial spines. Lateral Compartment: Tiny marginal osteophytes. Scattered cartilage heterogeneity and irregularity. JOINT FLUID AND BURSAE: Moderate effusion. No significant Flor's cyst. Semimembranosus tendinosis. Soleus and medial gastrocnemius muscle edema, perhaps strain. Subcutaneous edema. MR/MR knee LT wo con IMPRESSION: 1. Tear of the medial meniscal posterior horn and body. Anterior horn degenerative fraying/tear, with subjacent small para-meniscal cyst. 2. Anterior root/central anterior horn degenerative fraying/tear. Small cystic focus anterior to this, could represent a synovial recess or small parameniscal cyst. 3. Mucoid degeneration or partial tearing of the ACL. PCL mucoid degeneration. 4. Mild tricompartment arthritis. 5. Moderate effusion. 6. Semimembranosus tendinosis. 7. Soleus and medial gastrocnemius muscle edema, perhaps strain. Electronically signed by: Gilbert Medina MD 12/13/2023 05:04 PM EDT RP
== END 2023-12-13 14:26 | disposition home or self-care (01) ==
LOC: HO.MRI 14:25
PROVIDERS: PCP Internal Medicine; Visit Provider Orthopaedic Surgery
DX: S83.242A Other tear of medial meniscus, current injury, left knee, initial encounter (principal)
CPT/HCPCS: 73721

== ENCOUNTER 2023-12-14 06:17 | Outpatient (REF) | payer OTHER, SELFPAY | END 2023-12-14 06:18 | disposition home or self-care (01) | LOC: CF 06:17 | PROVIDERS: Visit Provider Internal Medicine | DX: M25.551 Pain in right hip (principal); M25.562 Pain in left knee; G89.29 Other chronic pain; M53.3 Sacrococcygeal disorders, not elsewhere classified | CPT/HCPCS: 20610; 27096; J2003; J2795; J3300; J3301 ==

== ENCOUNTER 2023-12-14 11:23 | Outpatient (AMB) | payer OTHER, SELFPAY ==
--- OUTSIDE RECORDS SUMMARY | 2023-12-14 11:25 | XMS_ITS ---
Author Organization [facility] Address [address] [place] [address] Care Team Providers Care Restaurant And Bar Manager Name Role Phone Livan Chance MD Primary Care Provider Bentley Jade [phone] MEDICATIONS Medication SIG (Take, Route, Fr equency, [...] 09/05/2022 Encounters Encounter Location Date Provider Diagnosis [facility] [address] [place] [address] 09/05/2022 Bentley Parikh PLAN OF TREATMENT No Information
--- OUTSIDE RECORDS SUMMARY | 2023-12-14 11:25 | XMS_ITS | Patient Health Record ---
[facility] Address [address] [facility] [address] [facility] [place] [address] Care Team Providers Care Cloth Doubling Machine Operator Name Role Phone Livan Chance MD Primary Care Provider Bentley Jade Unavailable [phone] REASON FOR REFERRAL No Information MEDICATIONS Medication [...] foot (M20.12) Active confirmed Acquired hallux valgus ([id number]) Problem Hallux valgus (acquired), right foot (M20.11) Active confirmed Acquired hallux valgus ([id number]) PLAN OF TREATMENT Pending Test Test Name Order Date X ray : Foot, left 2V 08/21/2017 X ray : Foot, right 2V 08/21/2017 Insurance Providers Payer Name Payer Address Payer Phone Subscriber Number Group Number Insured Name Patient Relationship to Insured Coverage Start Date Coverage End Date Blue Benefits [address] [address] [place] [address] [id number] Gianna Sidhu Self - patient is the insured MEDICAL (GENERAL) HISTORY Medical History History ICD Code Arthritis Back,Hip,and Knee pain Cataracts Hiatal hernia Reflux ( GERD) Chicken pox covid-19 Sciatica Surgical History Surgery Date(Month/Year) 12/27/1997 right knee arthroscopy 2007 cataract surgery
--- OUTSIDE RECORDS SUMMARY | 2023-12-14 11:25 | XMS_ITS ---
Author Organization [facility] Address [address] [place] [address] Care Team Providers Care Sand Buffer Name Role Phone Livan Chance MD Primary Care Provider Unavaila Bentley Coreas [phone] REASON FOR VISIT cx ON 09/05 Encounters Encounter Location Date Provider Diagnosis [facility] [address] [place] [address] 08/30/2022 Bentley Parikh PLAN OF TREATMENT No Information
[2023-12-14 11:28] VITALS: BP 114/60; PULSE 68; O2SAT 99
--- NOTE | 2023-12-14 11:28 | MHC.OFFVIS ---
Vital Signs 12/14/23 11:28 12/14/23 12:08 BP 114/60 114/71 Blood Pressure Location Lt brachial Lt brachial Position Sitting Sitting Pulse 68 72 Pulse Source Pulse Oximeter Pulse Oximeter Pulse Oximetry (%) 99 99 Oxygen Delivery Method Room Air Room Air Intake Visit Reasons: right theraputic SIJ inj/ left knee inj Allergies avocado [AVOCADO] Allergy (Unknown, Verified 12/13/23 12:51) VOMITING bananas Adverse Reaction (Intermediate, Uncoded 12/04/23 11:10) severe nausea PFSH Medical History Arthritis History of 2019 novel coronavirus disease (COVID-19) GERD (gastroesophageal reflux disease) (~10/2009) Surgical History S/P right knee arthroscopy Hx of colonoscopy H/O esophagogastroduodenoscopy Family History Father Emphysema lung Mother Uterine cancer Sister Lymphoma Social History Household Members: Spouse Housing: House Alcohol intake: current Alcohol intake frequency: a few times a month Alcohol type: beer Patient Tobacco Use Status: Former Tobacco user Years Smoked: quit 30 years ago e-Cigarette/Vaping Use: Never Used service: No Current occupational status: employed Current occupation: [employer] [place] - Right HAnded Physical Exam Vital Signs: Last Vital Signs Pulse 72 12/14/23 12:08 BP 114/71 12/14/23 12:08 Pulse Ox 99 12/14/23 12:08 Oxygen Delivery Method Room Air 12/14/23 12:08 Office Procedures AMB Joint Injection/Aspiration Joint Injection/Aspiration Details: Therapeutic Sacroiliac Joint Injection, Right The procedure, its benefits, and its risks were explained and written informed consent was obtained from the patient. Immediately prior to starting the procedure, a time-out safety check was conducted. The patient's identification, procedure name, procedure site, and procedure laterality were confirmed with the patient. ? Patient was placed prone on the fluoroscopy table and the lumbosacral area was prepped using ChloraPrep and draped with sterile drapein standard fashion. The C-arm was rotated in a contralateral oblique fashion until the medial border of the iliac crest no longer foreshadowed the posterior sacroiliac joint line. The skin and subcutaneous tissue was anesthetized using 1 mL of 0.75% plain lidocaine with 1.5-inch 25-gauge needle in the middle region of the joint line.? A 3.5-inch 22-gauge spinal needle with small bend on the tip was slowly advanced towards the joint line, coaxial to the x-ray beam. Once bony content was obtained, the needle was easily slid into the intra-articular space.? Intra-articular needle position was confirmed using lateral fluoroscopy.? A total volume of 2.5mL of solution containing 40 mg triamcinolone and rest 0.5% of ropivacaine was injected intra-articularly. The stylet was reinserted and needle was removed. The patient tolerated the procedure well. Patient denied any lower extremity weakness or numbness. Patient was observed for 30 min and was discharged after fulfilling the standard discharge criteria. Secondary Site: left knee Prep: site was prepped using sterile technique Injected: 40 mg of, Kenalog, with 3 mL of, 1% plain lidocaine, in the joint and other (20 mL of clear synovial fluid was aspirated prior to Kenalog injection) Approach Used: other (Suprapatellar ultrasound-guided) Procedure: The patient tolerated the procedure well Coding 21713 - Large joint 79527 - Sacroiliac Procedure code (CPT) selection complete Office Meds Kenalog 40 mg/mL suspension for injection Performing Provider: Eddie Ramirez MD Performing Location: [facility] [place] [facility] Administered by: Eddie Ramirez MD on 12/14/23 12:56 Dose Route Admin Location Dispensed Lot Number Expiration Date [facility] Stainless Steel Finisher 80 mg intra-articular 2 mL Assessment & Plan Assessment & Plan (1) Left knee pain: Code(s): M25.562 - Pain in left knee Category: Medical Qualifiers: Chronicity: chronic Qualified Code(s): M25.562 - Pain in left knee; G89.29 - Other chronic pain (2) Sacroiliac dysfunction: Code(s): M53.3 - Sacrococcygeal disorders, not elsewhere classified Category: Medical Plan Patient is status post right intra-articular sacroiliac joint injection and left knee ultrasound-guided aspiration and intra-articular injection. Patient tolerated procedure well and was discharged home in stable condition with discharge instructions. All questions were answered. We will follow-up via telephone or in clinic to assess response to therapy. A follow-up appointment was made during today's visit. Orders: Orders FL guidance in treatment room Today Nadia Glez, QUALITY COORDINATOR, AIRCRAFT MAINTENANCE SUPERVISOR M25.551 - Pain in right hip AMB Joint Injection/Aspiration Today Eddie Ramirez MD M25.562 - Pain in left knee, M53.3 - Sacrococcygeal disorders, not elsewhere classified Medications: New Kenalog (triamcinolone acetonide) 80 mg (2 mL) intra-articular ONCE 2 mL 0RF NS Eddie Ramirez MD M25.562 - Pain in left knee, M53.3 - Sacrococcygeal disorders, not elsewhere classified Coding Level of Care Code Procedure Only Diagnoses Chronic pain of left knee M25.562; G89.29 Chronicity: chronic Sacroiliac dysfunction M53.3 CPT Codes Coding - 07962 Large joint: 65616 - Large joint ([id number]) Coding - Joint 9: 51203 - Sacroiliac ([id number])
[2023-12-14 12:08] VITALS: BP 114/71; PULSE 72; O2SAT 99
== END 2023-12-14 12:08 | disposition home or self-care (01) ==
LOC: HO.PMCPRC 11:23
PROVIDERS: PCP Internal Medicine; Visit Provider Internal Medicine
DX: M53.3 Sacrococcygeal disorders, not elsewhere classified (principal); M25.562 Pain in left knee
CPT/HCPCS: 20610; 27096; 77002

== ENCOUNTER → 2023-12-18 13:24 | Outpatient (BNVA) | payer OTHER, SELFPAY | PROVIDERS: PCP Internal Medicine | DX: Z01.818 Encounter for other preprocedural examination (principal) ==

== ENCOUNTER 2023-12-28 09:15 | Outpatient (REF) | payer OTHER, SELFPAY ==
[2023-12-28 09:27] LABS: MANUAL DIFF FLAG NO
[2023-12-28 09:34] LABS: Basophils Absolute Auto 0.1 X10*3/uL (0.0-0.2); Basophils Percent Auto 0.8 % (0-2); Eosinophils Absolute Auto 0.2 X10*3/uL (0.0-0.4); Eosinophils Percent Auto 1.7 % (0-4); Hematocrit 44.1 % (37.0-47.0); Hemoglobin 14.8 g/dl (12.0-16.0); Imm Gran Abs Auto 0.05 X10*3/uL (0.00-0.03); Imm Gran Pct Auto 0.5 % (0.0-0.4); Lymphocytes Absolute Auto 2.8 X10*3/uL (1.2-4.9); Lymphocytes Percent Auto 27.5 % (20-40); Mean Corpuscular HGB Conc 33.6 g/dl (31.0-35.0); Mean Corpuscular Hemoglobin 29.6 pg (27.0-33.0); Mean Corpuscular Volume 88.2 fL (80.0-98.0); Mean Platelet Volume 8.6 fL (9.4-12.3); Monocytes Absolute Auto 0.9 X10*3/uL (0.1-1.2); Monocytes Percent Auto 9.2 % (2-11); Neutrophils Absolute Auto 6.2 x10*3/uL (2.0-8.3); Neutrophils Percent Auto 60.3 % (45-73); Platelet Count 310 X10*3/uL (160-400); Red Cell Distribution Width 12.8 % (11.0-16.0); White Blood Count 10.3 X10*3/uL (4.8-10.8)
[2023-12-28 09:42] LABS: Estimated Average Glucose 114 mg/dL; Hemoglobin A1C 141.9331 umol/L; Hemoglobin A1c % 5.6 % (<6.0); Total Hemoglobin (HGBA1C) 3774.0035 umol/L
[2023-12-28 09:58] LABS: Anion Gap 9 (12-20); Blood Urea Nitrogen 19 mg/dL (9-16); Calcium 9.3 mg/dL (8.4-10.2); Carbon Dioxide 30 mmol/L (22-29); Chloride 102 mmol/L (96-108); Estimated Glomerular Filt Rate > 60; Glucose Random 104 mg/dL (60-115); Potassium 4.4 mmol/L (3.3-5.1); Sodium 137 mmol/L (135-145)
== END 2023-12-28 09:16 | disposition home or self-care (01) ==
LOC: HO.LAB 09:15
PROVIDERS: PCP Internal Medicine; Visit Provider Internal Medicine
DX: Z01.818 Encounter for other preprocedural examination (principal); Z13.1 Encounter for screening for diabetes mellitus; M17.11 Unilateral primary osteoarthritis, right knee; Z79.1 Long term (current) use of non-steroidal anti-inflammatories (NSAID); M54.50 Low back pain, unspecified; G89.29 Other chronic pain
CPT/HCPCS: 36415; 80048; 83036; 85025

== ENCOUNTER 2024-01-10 14:11 | Outpatient (REF) | payer OTHER, SELFPAY | END 2024-01-10 14:12 | disposition home or self-care (01) | LOC: HO.LAB 14:11 | PROVIDERS: PCP Internal Medicine; Visit Provider Orthopaedic Surgery | DX: Z13.89 Encounter for screening for other disorder (principal) ==

== ENCOUNTER 2024-01-10 14:11 | Outpatient (AMB) | payer OTHER, SELFPAY ==
--- NOTE | 2024-01-10 14:17 | MHC.OFFVIS ---
Intake Visit Reasons: Right knee pain Intake Note: Gianna is a 63 year old female who presents with complaints of progressively worsening right knee pain. She describes her pain as sharp and severe in nature, /10. Her pain has gotten worse over the last few years in spite of continued non operative treatments. The patient has difficulty walking even short distances because of her pain. She has tried Tylenol and anti-inflammatory medicines which gave her minimal relief. She has also done physical therapy exercises which aggravated her pain. The patient has had injections in the past. The most recent injection gave her minimal relief. The patient states that her right knee pain is now interfering with her activities of daily living and her ability to sleep well through the night. Allergies banana Allergy (Severe, Verified 01/10/24 14:19) severe nausea avocado [AVOCADO] Allergy (Intermediate, Verified 01/10/24 14:19) Vomiting Medication List - Last Reconciled 01/10/24 by Zay Maddox MD cholecalciferol (vitamin D3) (Vitamin D3) 50 mcg PO QAM estradiol 1 patch topical QWEEK progesterone micronized 100 mg PO BEDTIME tramadol 25 mg PO BEDTIME PRN PFSH Medical History Hiatal hernia Back pain Lumbar spondylosis Arthritis GERD (gastroesophageal reflux disease) (~10/2009) Surgical History Hx of section Hx of bilateral cataract extraction S/P right knee arthroscopy Hx of colonoscopy H/O esophagogastroduodenoscopy Family History Father Emphysema lung Mother Uterine cancer Sister Lymphoma Social History Household Members: Spouse Housing: House Are you a primary out of school hours care worker to a significant other at home: No Do you presently have visiting nurse or other home services: No Alcohol intake: current Alcohol intake frequency: a few times a month Alcohol type: beer Patient Tobacco Use Status: Former Tobacco user Tobacco use type: Cigarette Years Smoked: 5 e-Cigarette/Vaping Use: Never Used service: No Current occupational status: employed Current occupation: [employer] – [place] [employer] - Right HAnded Physical Exam Const Other: Well-nourished well-developed very friendly female awake alert and oriented x3 in no acute distress Extrem Other: Bilateral lower extremity examination shows good capillary refill, no skin lesions noted, normal sensation light touch Examination shows a minimal effusion, palpable crepitus with range of motion, pain with range of motion, range of motion from -3 degrees to 115 degrees, no instability Results Reviewed Results Reviewed: X-rays of the patient's right knee show end-stage degenerative joint disease with grade 4 [id number] arthritis, subchondral sclerosis, osteophyte formation, no acute bony abnormalities Assessment & Plan Assessment & Plan (1) Right knee pain: Code(s): M25.561 - Pain in right knee Category: Medical Plan Ms. Sidhu presents with progressively worsening right knee pain due to end-stage degenerative joint disease. I had a lengthy discussion with the patient regarding the treatment options. At this point she has failed continued non operative treatments. The risks and benefits of right total knee replacement surgery were discussed at length with the patient. The patient wishes to proceed with surgery. child and family services worker will be consulted following her surgery for home physical therapy and nursing. The patient will follow-up as instructed. Feel free to call me at any time should questions regarding her orthopedic management arise. I spent 22 minutes in reviewing the patient's records and imaging studies, seeing the patient and documenting in the medical record. Orders: Orders Type and Screen Today M17.11 - Unilateral primary osteoarthritis, right knee Coding Level of Care Code Est Pt Level 3 (62288) Complex EM visit Add On G2211 Diagnoses Right knee pain M25.561
== END 2024-01-10 14:47 | disposition home or self-care (01) ==
PROVIDERS: PCP Internal Medicine; Visit Provider Orthopaedic Surgery
DX: M25.561 Pain in right knee (principal)
CPT/HCPCS: 99213

== ENCOUNTER 2024-01-15 07:27 | Day surgery (SDC) | payer OTHER, SELFPAY ==
[2023-12-18 12:16] VITALS: BP 131/71; PULSE 66; RESP 20; O2SAT 97; BMI 27.2
[2023-12-18 15:18] LABS: MRSA Nasal PCR NEGATIVE (Negative); SA Nasal PCR NEGATIVE (Negative)
[2024-01-15] VITALS (19 sets, daily range): BP systolic 101–158; BP diastolic 55–88; PULSE 61–90; RESP 16–20; TEMP 36.1–36.6; O2SAT 92–100; BMI 26.5; BMI 28.1
--- OUTSIDE RECORDS SUMMARY | 2024-01-15 07:29 | XMS_ITS ---
Author Organization [facility] Address [address] [place] [address] Care Team Providers Care Hospitality Ambassador Name Role Phone Livan Chance MD Primary Care Provider UnavailBentley Shane [phone] REASON FOR VISIT cx ON 09/05 Encounters Encounter Location Date Provider Diagnosis [facility] [address] [place] [address] 08/30/2022 Bentley Parikh Plan Of Treatment No Information Progress Notes * Gianna SIDHU LDOB:[birth year] (62 yo F)Acc No.[id number]:08/30/2022 Patient:?Gianna Sidhu :1960???Age:62 Y???Sex:Female Address:[address] [place] [address] * true * Date:? Generated for Printi cj/Rylan/eTransmitting on:?01/15/2024 07:29 AM EST
--- OUTSIDE RECORDS SUMMARY | 2024-01-15 07:29 | XMS_ITS ---
Author Organization [facility] Address [address] [place] [address] Care Team Providers Care Medical Historian Name Role Phone Livan Chance MD Primary Care Provider Bentley Jade [phone] Medications Medication SIG (Take, Route, Fr equency, Duration) Notes Start Date End Date Status Progesterone Active traMADol HCl Not-Jay ing Diclofenac Active Social History Tobacco Use: Social History Observation Description Date Details (start date - stop date) Never Smoker NA - NA Tobacco Use/Smoking Question Answer Notes Are you [...] Are you an other tobacco user? No Vital Signs Height 5 ft 8 in in 09/05/2022 Weight 170 lbs 09/05/2022 BMI 25.85 kg/m2 09/05/2022 Encounters Encounter Location Date Provider Diagnosis [facility] [address] [place] [address] 09/05/2022 Bentley Parikh Plan Of Treatment No Information Progress Notes * Gianna SIDHU LDOB:[birth year] (63 yo F)Acc No.[id number]:09/05/2022 Progress Notes Patient:?Gianna SIDHU Provider:?Bentley Parikh DPM :1960???Age:62 Y???Sex:Female D ate:09/05/2022 Address:[address] [place] [address], [facility] Pcp:Livan Chance MD Subjective: * Chief Complaints: * ??? * ROS:?General/Constitutional:?Nausea?denies.?Vomiting?denies.?Hunger Thirst?denies.?Loss appetite?denies.?Chills?denies.?Fatigue?denies.?Fever?denies.?Night Sweats?denies.?Unexplained weight loss?denies.?Unexplained weight gain?denies.?HEENTM:?Dentures?denies.?Dizziness?denies.?Glasses/contacts?denies.?Retinopathy?de nies.?Blurred/double vision?denies.?TMJ?denies.?Discharge/drainage?denies.?Implants?denies.?Sore throat?denies.?Dental implants?denies.?Hard of hearing ?denies.?Difficulty chewing/swallowing/speaking?denies.?Nose bleeds?denies.?Sore mouth?denies.?Respiratory:?On Oxygen?denies.?Pneumonia/pleurisy?denies.?Bronchitis?denies.?Emphysema?denies.?C oughing?denies.?Cough blood?denies.?Shortness of breath?denies.?Wheezing?denies.?Cardiovascular:?Pacemaker?denies.?MVP?denies.?WPW?denies.?CHF?denies.?Heart attack?denies.?Septal defect?denies.?Rapid beat?denies.?Chest pain ?denies.?Atrial Fib.?denies.?Murmur/Palpitations?denies.?Gastrointestinal:?Hemorrhoids?denies.?Stomach/Abdominal pain?denies.?Dark blood stool?denies.?Irritable bowel ?denies.?Constipation?denies.?Diarrhea?denies.?Hematology:?Swelling?denies.?Clots?denies.?Varicose Veins?denies.?Bruising?denies.?Bleeding problem?denies.?Genitourinary:?Blood urine?denies.?Frequent/Painfu/urination/bladder control?denies.?Kidney stones?denies.?Infection (UTI)?denies.?Nephropathy?denies.?sex trans dis (STD)?denies.?Prostate?denies.?Musculoskeletal:?Hammertoes?denies.?Bunions?admits.?Back Pain?admits.?Muscle Cramps/ Resting?denies.?Muscle cramps / walking?denies.?Generalized aches and pains?admits.?Weakness?denies.?Integ.:?Lim?denies.?Scars?denies.?Corns/calluses?admits.?Ingrown nails?denies.?Painful nails?denies.?Open Sores?denies.?Rashes?denies.?Neurologic:?Difficulty sleeping?admits.?Brain disorder?denies.?Numbness?denies.?Balance trouble?denies.?Confusion?denies.?Fainting/blackouts?denies.?Tingling?denies.?Tr emors?denies.? * Medical History:?Arthritis, Back,Hip,and Knee pain, Cataracts, Hiatal hernia, Reflux ( GERD), Chicken pox, Covid-19, Sciatica. * Surgical History:? 12/27/1997, right knee arthroscopy 2007, cataract surgery +. * Family History:?Mother: dece ased, kidney/liver disease, foot problems, diagnosed with Family history of arthritis, Other malignant neoplasm of unspecified site.?Father: .? * Social History:?Tobacco Use:?Tobacco Use/Smoking?Are you a:?nonsmoker ?Additional Findings: Tobacco Non-User?Current non-smoker, but past smoking history unknown ?Tobacco use other than smoking?Are you an other tobacco user??No ???Drugs/Alcohol:?Drugs?Have you used drugs other than those for medical reasons in the past 12 months??No ?Alcohol Screen?Did you have a drink containing alcohol in the past year??Yes ?How often did you have a drink containing alcohol in the past year??2 to 3 times a week (3 points) ?Points?3 ?Interpretation?Positive ???Miscellaneous:?Caffeine: yes, 2-3 cups per day. ?Children: yes, 1. ?Exercise: yes, walking. ?Marital status: . ?Occupation: [employer] [place]. * Medications:?Taking Progeste elva , Taking Diclofenac , Not-Taking/PRN traMADol HCl Objective: * Vitals:?Ht: 5 ft 8 in, Wt:17 0, BMI:25.85, Shoe size:9. Assessment: Plan: * Treatment: * Images: * The named appointment provid er may or may not be the originator of this progress note, and it is not deemed complete until electronically signed by the appointment provider. Sign off status: Pending * Provider:?Bentley Parikh DPM Date:? 023 Generated for Yael corona/Rylan/Diana on:?01/15/2024 07:29 AM EST
--- OUTSIDE RECORDS SUMMARY | 2024-01-15 07:30 | XMS_ITS | Patient Health Record ---
[facility] Organization [facility] Address [address] [facility] [place] [address] Care Team Providers Care Outsole Cutter Machine Name Role Phone Livan Chance MD Primary Care Provider Bentley Jade Unavailable [phone] Reason For Referral No Information Medications Medication SIG (Take, Route, Fr equency, [...] Are you an other tobacco user? No Problems Problem Type SNOMED Code ICD Code Onset Dates Problem Status W/U Status Risk Notes Problem Acquired hallux valgus (65936345) Hallux valgus (acquired), left foot (M20.12) Active confirmed Problem Acquired hallux valgus (61864355) Hallux valgus (acquired), right foot (M20.11) Active confirmed Plan Of Treatment Pending Test Test Name Order Date X ray : Foot, left 2V 08/21/2017 X ray : Foot, right 2V 08/21/2017 Insurance Providers Payer Name Payer Address Payer Phone Subscriber Number Group Number Insured Name Patient Relationship to Insured Coverage Start Date Coverage End Date Blue Benefits [address] [address] [place] [address] [id number] Gianna Sidhu Self - patient is the insured Medical (General) History Medical History History ICD Code Arthritis Back,Hip,and Knee pain Cataracts Hiatal hernia Reflux ( GERD) Chicken pox covid-19 Sciatica Surgical History Surgery Date(Month/Year) 12/27/1997 right knee arthroscopy 2007 cataract surgery
[2024-01-15] MEDS: Lactated Ringers 1,000 ML 100 ML IVCONT ×2 (08:18→18:08)
[2024-01-15] MEDS: vancomycin HCL 1,000 MG in 0.9 % Sodium Chloride 250 ML 270 MG IV ×2 (08:30→20:47)
--- NOTE | 2024-01-15 10:30 | P.CONAN_ITS ---
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 GERD: prn Tums PMFSH Active Problems Active Problems: All Active Problems Sacroiliac dysfunction (Acute) Tear of medial meniscus of left knee (Acute) Left knee pain (Acute) Right hip pain (Acute) Right knee pain (Acute) Lumbar spondylosis (Acute) Vertebrogenic low back pain (Acute) Lumbar radiculopathy (Acute) Low back pain (Acute) Left hip pain (Acute) Osteoarthritis of right knee (Acute) Rheumatoid factor positive (Acute) Screening for viral disease (Acute) Pain in left shoulder (Acute) Trochanteric bursitis, left hip (Acute) Left hamstring muscle strain (Acute) Left buttock pain (Acute) Tear of left rotator cuff (Acute) GERD (gastroesophageal reflux disease) (Acute ~10/2009) Past Medical History Medical History Hiatal hernia Back pain Lumbar spondylosis Arthritis GERD (gastroesophageal reflux disease) (~10/2009) Family History Family History Father Emphysema lung Mother Uterine cancer Sister Lymphoma Family history of problems with anesthesia: No Surgical History Surgical History Hx of section Hx of bilateral cataract extraction S/P right knee arthroscopy Hx of colonoscopy H/O esophagogastroduodenoscopy History of Problems with Anesthesia: No Social History Social History Household Members: Spouse Housing: House Are you a primary client care specialist to a significant other at home: No Do you presently have visiting nurse or other home services: No Alcohol intake: current Alcohol intake frequency: a few times a month Alcohol type: beer Patient Tobacco Use Status: Former Tobacco user Tobacco use type: Cigarette Years Smoked: 5 e-Cigarette/Vaping Use: Never Used Use of substances other than those prescribed or required for medical reasons: No Have you been hit, kicked, punched, or otherwise hurt by someone within the past year? If so, by whom?: No Spiritual Healthcare Practices: none Christianity Healthcare Practices: Buddhist Cultural Healthcare Practices: none Are you DNR?: No Advance Directives: No ( is primary contact) Advance Directives Information Provided: Yes (brochure given) Advance Directives on File: No Recently lost weight without trying: No Eating poorly because of decreased appetite: No Nutrition Risks: No Nutritional Risk FDLMP: n/a Poor oral hygiene: No (multiple crowns) service: No Current occupational status: employed Current occupation: [employer] Meds Allergies Allergy/AdvReac Type Severity Reaction Status Date / Time banana Allergy Severe severe Verified 01/10/24 14:19 nausea avocado [AVOCADO] Allergy Intermediate Vomiting Verified 01/10/24 14:19 Home Medications ?Medication ?Instructions ?Recorded ?Confirmed ?Last Taken ?Type estradiol 0.025 mg/24 hr weekly 1 patch topical QWEEK 08/02/22 01/10/24 01/15/24 History transdermal patch progesterone micronized 100 mg 100 mg PO BEDTIME 08/02/22 01/10/24 01/14/24 History capsule cholecalciferol (vitamin D3) 50 50 mcg PO QAM 12/15/23 01/10/24 01/14/24 History mcg (2,000 unit) capsule (Vitamin D3) tramadol 50 mg tablet 25 mg PO BEDTIME PRN Pain 12/15/23 01/10/24 12/11/23 History Exam Height,Weight and Vital Signs: Height 5 ft 7.28 in Weight 79.379 kg Last Vital Signs Pulse 66 12/18/23 12:16 Resp 20 12/18/23 12:16 BP 131/71 12/18/23 12:16 Pulse Ox 97 12/18/23 12:16 O2 Del Method Room Air 12/18/23 12:16 Pertinent Lab Results Pertinent Lab Results: Lab Results 12/18/23 Range/Units 12:30 Nasal Screen MRSA (PCR) NEGATIVE (Negative) Nasal S. aureus Screen NEGATIVE (Negative) Nasal MRSA/S.aureus Interp SEE NOTE Laboratory Tests 12/28/23 09:25 WBC 10.3 Hgb 14.8 Hct 44.1 Plt Count 310 Sodium 137 Potassium 4.4 Chloride 102 Carbon Dioxide 30 H BUN 19 H Creatinine 0.86 Narrative Narrative: EKG 11/2023 sinus arrhythmia RSR' in V1 Airway Mallampati Class: I TM Dist: >3cm Neck ROM: Full Loose/Missing/Broken Teeth: No (Crowned) Heart: RRR Lungs: CTAB Assessment and Plan Assessment Anesthesia Assessment: Anesthesia Plan Discussed and PAT Visit Final Anesthetic Review Family History of Problems with Anesthesia: No History of Problems with Anesthesia: No Documented by User: Caridad Martin DO 01/15/24 11:52 PMFSH Past Medical History Medical History Hiatal hernia Back pain Lumbar spondylosis Arthritis GERD (gastroesophageal reflux disease) (~10/2009) Family History Family History Father Emphysema lung Mother Uterine cancer Sister Lymphoma Family history of problems with anesthesia: No Surgical History Surgical History Hx of section Hx of bilateral cataract extraction S/P right knee arthroscopy Hx of colonoscopy H/O esophagogastroduodenoscopy History of Problems with Anesthesia: No Social History Social History Household Members: Spouse Housing: House Are you a primary client care specialist to a significant other at home: No Do you presently have visiting nurse or other home services: No Alcohol intake: current Alcohol intake frequency: a few times a month Alcohol type: beer Patient Tobacco Use Status: Former Tobacco user Tobacco use type: Cigarette Years Smoked: 5 e-Cigarette/Vaping Use: Never Used Use of substances other than those prescribed or required for medical reasons: No Have you been hit, kicked, punched, or otherwise hurt by someone within the past year? If so, by whom?: No Spiritual Healthcare Practices: none Christianity Healthcare Practices: Buddhist Cultural Healthcare Practices: none Are you DNR?: No Advance Directives: No ( is primary contact) Advance Directives Information Provided: Yes (brochure given) Advance Directives on File: No Recently lost weight without trying: No Eating poorly because of decreased appetite: No Nutrition Risks: No Nutritional Risk FDLMP: n/a Poor oral hygiene: No (multiple crowns) service: No Current occupational status: employed Current occupation: [employer] [place] [employer] - [employer] Meds Allergies Allergy/AdvReac Type Severity Reaction Status Date / Time banana Allergy Severe severe Verified 01/10/24 14:19 nausea avocado [AVOCADO] Allergy Intermediate Vomiting Verified 01/10/24 14:19 Home Medications ?Medication ?Instructions ?Recorded ?Confirmed ?Last Taken ?Type estradiol 0.025 mg/24 hr weekly 1 patch topical QWEEK 08/02/22 01/10/24 01/15/24 History transdermal patch progesterone micronized 100 mg 100 mg PO BEDTIME 08/02/22 01/10/24 01/14/24 History capsule cholecalciferol (vitamin D3) 50 50 mcg PO QAM 12/15/23 01/10/24 01/14/24 History mcg (2,000 unit) capsule (Vitamin D3) tramadol 50 mg tablet 25 mg PO BEDTIME PRN Pain 12/15/23 01/10/24 12/11/23 History Exam Exam Date and Time: 01/15/24 1030 Height,Weight and Vital Signs: Height 5 ft 7.28 in Weight 79.379 kg Last Vital Signs Pulse 66 12/18/23 12:16 Resp 20 12/18/23 12:16 BP 131/71 12/18/23 12:16 Pulse Ox 97 12/18/23 12:16 O2 Del Method Room Air 12/18/23 12:16 Vital Signs Pulse Rate 66 12/18/23 12:16 Respiratory Rate 20 12/18/23 12:16 Blood Pressure 131/71 12/18/23 12:16 Pulse Oximetry 97 12/18/23 12:16 Oxygen Delivery Method Room Air 12/18/23 12:16 Temperature 98 F 01/15/24 08:00 Pulse Rate 85 01/15/24 08:00 Respiratory Rate 18 01/15/24 08:00 Blood Pressure 132/77 01/15/24 08:00 Pulse Oximetry 98 01/15/24 08:00 Oxygen Delivery Method Room Air 01/15/24 08:00 Airway Mallampati Class: I TM Dist: >3cm Neck ROM: Full Loose/Missing/Broken Teeth: No (patient denies any loose or broken teeth) Heart: S1S2 Assessment and Plan Assessment Anesthesia Assessment: Anesthesia Plan Discussed and Chart Reviewed Final Anesthetic Review Family History of Problems with Anesthesia: No History of Problems with Anesthesia: No NPO: Yes ASA Class: II Final Preanesthetic Review: No Changes in Pt Med Stat, Meds/Allgs Chart Reviewed, Consent Obtained/Reviewed and Anes Risks/Benef Reviewed Patient Risk: Low Procedure Risk: Intermediate Anesthetic Plan Anesthetic Plan: Spinal, Regional Block (right adductor canal and right ipack blocks) and Agree w/ Assess. and Plan Disposition: Standard PACU
--- NOTE | 2024-01-15 11:12 | PHA.MEDREC ---
Pharmacy Consult ? Medication Reconciliation Pharmacy has reviewed the medication reconciliation doen by RN
--- NOTE | 2024-01-15 13:48 | P.BOP_ITS ---
Brief Operative Note Date of Service: 01/15/24 Pre-op diagnosis: Right knee degenerative joint disease Post-op diagnosis: same Procedure: Right total knee arthroplasty Implants: [employer] Triathlon cemented posterior stabilized total knee arthroplasty with a femoral component size 4 right, tibial component size 3, polyethylene liner size 3 with 9 mm of thickness, an asymmetric patellar component size 29 with 9 mm of thickness Surgeon: Zay Maddox MD Anesthesia: regional and spinal Was an Word Processing Machine Operator used for this Procedure?: No Word Processing Machine Operator: Anali Gutierrez Estimated blood loss (mL): 200 Pathology: other (Bony fragments from the right femur, tibia and patella) Condition: stable Disposition: PACU
--- NOTE | 2024-01-15 13:50 | P.OP_ITS ---
Operative Note Operative Note Date of Service: 01/15/24 Narrative: After the patient was identified as Gianna Sidhu and her right knee was initialed by myself the patient was brought to the holding area where a right leg nerve block was performed by the anesthesiologist in routine fashion. The patient was then brought to the operating room where conscious sedation and spinal anesthesia were performed by the anesthesiologist in routine fashion. 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 The patient's right lower extremity was prepped and draped in sterile fashion. A formal time-out w as completed. The patient's right knee was placed onto a small bump to produce 30? of knee flexion during exposure. A #10 scalpel blade was used to make a midline incision extending 1 handbreadth proximal and distal to the patella. A second #10 scalpel blade was used to dissect the subcutaneous tissues down to the extensor mechanism. The subcutaneous flaps were maintained as thick as possible. A medial parapatellar arthrotomy was then performed using a #10 scalpel blade. The arthrotomy was begun just medial to the patellar tendon. The arthrotomy was continued 1 cm medial to the patella and then 5 mm into the medial aspect of the quadriceps tendon. The infrapatellar fat pad was partially excised to help with exposure. The soft tissue retinaculum was raised one-half of the way around the medial aspect of the proximal tibia. The patella was everted and the knee was flexed to 90?. There was no injury to the patellar tendon or its insertion onto the tibial tubercle. A drill bit was introduced into the distal aspect of the femur with a starting point 1 cm anterior to the origin of the posterior cruciate ligament. The intramedullary alignment susan was put into place. The distal alignment guide was set for a 5 degree valgus cut. The distal cutting block was put into place and was held with 4 pins. The intramedullary alignment susan was removed. Soft tissues were retracted in the distal femoral cut was made using a sagittal saw. The distal aspect of the femur measured to be a size 4 right component. Two drill holes were placed into the distal aspect of the femur marking 3? of external rotation. The distal cutting block was impacted into place and was held with 2 pins. Soft tissues were retracted and the 4 distal femoral cuts were made using a sagittal saw. Final notching and drilling of the distal aspect of the femur were performed in routine fashion. The trial femoral component was impacted into place. The knee was taken through a full range of motion. The patella tracked well. The patella was everted and the knee was flexed to 90?. The trial component was removed and our attention was directed to the proximal tibia. The medial and lateral menisci were removed using a #10 scalpel blade. A small rim of the medial meniscus was left intact to help prevent injury to the medial collateral ligament. A drill bit was then introduced into the proximal tibia with a starting point midway from medial to lateral and one-third of the way posteriorly. The intramedullary alignment susan was put into place. The proximal tibial cutting guide was placed over the alignment susan in line with the 2nd toe. The guide was held in place using 3 pins. The intramedullary alignment susan was removed. Soft tissues were retracted and the proximal tibial cut was made using a sagittal saw. The proximal tibia measured to be a size 3 component. The tibial tray was put into place with a 9 mm liner. The femoral component was impacted into place. The knee was taken through a full range of motion. There was full flexion and full extension. There was no instability with varus or valgus stress testing with the knee in flexion or extension. The patella track ed well with no medially directed force. The rotation of the tibial tray was marked using electrocautery with the knee in extension. The patella was everted and the knee was flexed to 90?. All trial components were removed. The tibial tray was placed onto the proximal tibia in line with the electrocautery trav. The tray was held in place using 3 pins. Final broaching of the proximal tibia was performed in routine fashion. The trial liner and trial femoral component were put into place. The knee was brought into extension and our attention was directed to the patella. The patella measured 25 mm in thickness. The patellar resection guide was set for a 10 mm resection. Soft tissues were retracted and the patella cut was made using a sagittal saw. The remaining patella measured 15 mm in thickness. The undersurface of the patella was measured to be a size 29 asymmetric component. Three drill holes were placed into the undersurface of the patella in routine fashion. The trial component was put into place. The knee was taken through a full range of motion. The patella tracked well. The patella was everted and the knee was flexed to 90?. All trial components were removed. The knee was once again brought into extension and placed onto a small bump. The knee joint was irrigated with copious amounts of normal saline solution via pulse lavage while the cement was mixed. The patella was everted and the knee was flexed to 90?. A small amount of cement was placed along the posterior aspects of the tibial and femoral components. Cement was then pressurized into the proximal tibia. The tibial component was impacted into place. Any excess cement was removed. The polyethylene liner was then impacted into place. Cement was then pressurized into the distal aspect of the femur. A small amount of cement was placed into the intramedullary canal to help reduce bleeding. The femoral component was impacted into place. Any excess cement was removed. The knee was then brought into extension. Cement was pressurized into the undersurface of the patella. The patellar component was put into place and was held with a patella clamp. Any excess cement was removed. Once the cement had hardened the patellar clamp was removed. The knee was taken through a full range of motion. There was full flexion and extension. There was no instability with varus or valgus stress testing with the knee in flexion or extension. The patella tracked well with no medially directed force. The knee joint was irrigated with copious amounts of normal saline solution via pulse lavage. Any significant bleeding vessels were coagulated. The patient's right knee was placed onto a small bump. The arthrotomy was closed with #2 Ethibond [id number] interrupted suture as well as #1 Vicryl [id number] interrupted suture. The wound was once again irrigated. The subcutaneous tissues were closed with 0 Vicryl and 2-0 Vicryl interrupted sutures. The skin was closed with skin sandy. Dry sterile dressing and Sergo bandages were placed over the patient's right knee. The patient was awake and alert. The patient was transferred to the recovery room in stable condition.
[2024-01-15] MEDS: HYDROmorphone HCl 0.5 MG/0.5 ML SYRINGE IVPUSH ×4 (14:10→19:27)
--- NOTE | 2024-01-15 17:25 | PM.EVENT ---
Event Note Date of Service: 01/15/24 Event Note: The patient was seen and evaluated No active medical problems feels comfortable , pain under control physical exam with no red flags encouraged to use Spirometry Please contact hospitalist team with any further questions Time Spent With Patient Time: Total time managing care of this patient today ____ minutes.
[2024-01-15] MEDS: Aspirin 325 MG TABLET PO (18:06)
[2024-01-15] MEDS: Gabapentin 100 MG CAPSULE PO (20:48)
[2024-01-15] MEDS: oxyCODONE HCl ER 10 MG TAB.ER.12H PO (20:48)
[2024-01-15] MEDS: methocarbamoL 500 MG TABLET PO (20:48)
[2024-01-15] MEDS: proGESTerone, Micronized 100 MG CAPSULE PO (20:48)
[2024-01-15] MEDS: Celecoxib 200 MG CAPSULE PO (20:48)
[2024-01-16] MEDS: Lactated Ringers 1,000 ML 100 ML IVCONT ×2 (03:45→12:29)
[2024-01-16 04:00] VITALS: BP 94/55; PULSE 63; RESP 16; TEMP 36.7; O2SAT 96
[2024-01-16] MEDS: Aspirin 325 MG TABLET PO (05:59)
[2024-01-16 06:56] LABS: MANUAL DIFF FLAG NO
[2024-01-16 07:00] LABS: Basophils Percent Auto 0.2 % (0-2); Eosinophils Percent Auto 0.1 % (0-4); Hemoglobin 11.3 g/dl (12.0-16.0); Imm Gran Abs Auto 0.06 X10*3/uL (0.00-0.03); Imm Gran Pct Auto 0.5 % (0.0-0.4); Lymphocytes Absolute Auto 1.7 X10*3/uL (1.2-4.9); Lymphocytes Percent Auto 13.8 % (20-40); Mean Corpuscular HGB Conc 33.2 g/dl (31.0-35.0); Mean Corpuscular Hemoglobin 29.7 pg (27.0-33.0); Mean Corpuscular Volume 89.5 fL (80.0-98.0); Mean Platelet Volume 8.9 fL (9.4-12.3); Monocytes Absolute Auto 1.1 X10*3/uL (0.1-1.2); Monocytes Percent Auto 8.6 % (2-11); Neutrophils Absolute Auto 9.5 x10*3/uL (2.0-8.3); Neutrophils Percent Auto 76.8 % (45-73); Platelet Count 242 X10*3/uL (160-400); Red Cell Distribution Width 13.7 % (11.0-16.0); White Blood Count 12.3 X10*3/uL (4.8-10.8)
[2024-01-16 07:09] VITALS: BP 108/58; PULSE 65; RESP 16; TEMP 36.4; O2SAT 97
[2024-01-16 07:18] LABS: Anion Gap 10 (12-20); Blood Urea Nitrogen 10 mg/dL (9-16); Calcium 9.2 mg/dL (8.4-10.2); Carbon Dioxide 26 mmol/L (22-29); Chloride 108 mmol/L (96-108); Creatinine Clr Calc Pharmacy 90.6; Estimated Glomerular Filt Rate > 60; Glucose Fasting 120 mg/dL (60-99); Potassium 4.4 mmol/L (3.3-5.1); Sodium 140 mmol/L (135-145)
[2024-01-16] MEDS: oxyCODONE HCl ER 10 MG TAB.ER.12H PO (07:52)
[2024-01-16] MEDS: methocarbamoL 500 MG TABLET PO (07:52)
[2024-01-16] MEDS: Celecoxib 200 MG CAPSULE PO (07:52)
[2024-01-16] MEDS: Cholecalciferol (Vitamin D3) 25 MCG TABLET 50 MCG PO (07:52)
[2024-01-16] MEDS: oxyCODONE HCl Immed Release 5 MG TABLET 10 MG PO (07:53)
[2024-01-16 08:47] VITALS: BP 108/58; PULSE 65; O2SAT 97
--- NOTE | 2024-01-16 09:31 | MHC.CM.PN ---
PT LIVES WITH ,IS INDEPENDENT AND STILL WORKING DC PLAN HOME W/[facility] PT HAS OWN RIDE
[2024-01-16 11:28] VITALS: BP 100/51; PULSE 75; RESP 16; TEMP 36.4; O2SAT 96
[2024-01-16 13:17] VITALS: BP 100/51; PULSE 75; O2SAT 96
--- NOTE | 2024-01-16 13:36 | W.MHC.F2F ---
Service Date Service Date: 01/16/24 Encounter Date of encounter: 01/16/24 Reasons for Services Signs and symptoms assessed: Weakness, poor balance, poor gait mechanics Reason for physical therapy: home safety and mobility, therapeutic exercises, restore joint function, gait/transfer training, ADL training and energy conservation Reason for occupational therapy: home safety and mobility, therapeutic exercises, restore joint function, gait/transfer training, ADL training and energy conservation Overseeing Care: Zay Maddox Homebound: Leaving the home is medically contraindicated at this time without the asist of a device and/or another person due th the listed conditions above and below. Reason homebound: unsteady gait / fall risk, poor balance / fall risk and unable to drive Homebound supporting statement: Pt. is considered home bound due to recent surgery. Unable to drive, poor balance, poor gait mechanics. Certification: Based on the above findings, I certify that this patient is confined to the home and needs intermittent alf care, physical therapy and/or speech therapy, or continues to need occupational therapy. The patient is under my care, and I have initiated the establishment of the plan of care. The patient will be followed by a physician who will periodically review the plan of care. Time Spent With Patient Time: Total time managing care of this patient today ____ minutes.
--- NOTE | 2024-01-16 13:37 | PM.DS ---
DS: Providers Provider Date of Service: 01/16/24 Primary care physician: Livan Chance MD Consults: 01/15/24 17:14 Consult to Hospitalist Routine Comment: Consulting Provider: [facility] Hospitalists Reason For Exam: routine medical managemetn DS: Summary Hospital Course Hospital Course: The patient underwent a successful Right total knee arthroplasty on 01/15/[address] Maddox, was transferred to PACU and then to the floor to recover. During their stay, their vitals were stable, afebrile at 97.6 . Labs were unremarkable, H/H 11.3/34.0 . POD 1 she was started on ASA 325mg tabs po bid for DVT ppx, they also received Physical Therapy services twice a day. Physical therapy should include gait training, ROM to tolerance and quad strength. She is WBAT. Prior to discharge, her dressing was clean dry and intact, The Aquacel dressing should remain intact and dry at all times. Any concerns with the dressing, please contact orthopedic office. No showering. The plan is to be discharged home with vna Time Attestation Discharge Coordination Time (in mins): 30 Quality: Safe Use of Opioids Does Pt have an Active Cancer Diagnosis on the Problem List?: No Quality: Stroke Does the patient have a stroke diagnosis?: No Physical Exam Vital Signs: Vital Signs: Last Vital Signs Temp 97.6 F 01/16/24 11:28 Pulse 75 01/16/24 13:17 Resp 16 01/16/24 11:28 BP 100/51 L 01/16/24 13:17 Pulse Ox 96 01/16/24 13:17 O2 Del Method Room Air 01/16/24 11:28 O2 Flow Rate 2 01/15/24 16:01 FiO2 96 01/15/24 15:01 BMI result Body Mass Index 28.1 DS: Data Data Completed and Pending Pending studies at discharge: Pending at discharge 01/15/24 12:39 Surgical [PTH] Routine Labs on day of discharge: Laboratory Results - last 24 hr 01/16/24 05:35 WBC 12.3 H RBC 3.80 L D Hgb 11.3 L D Hct 34.0 L D MCV 89.5 MCH 29.7 MCHC 33.2 RDW 13.7 Plt Count 242 MPV 8.9 L Immature Gran % (Auto) 0.5 H Neut % (Auto) 76.8 H Lymph % (Auto) 13.8 L [place] % (Auto) 8.6 Eos % (Auto) 0.1 Baso % (Auto) 0.2 Lymph # (Auto) 1.7 [place] # (Auto) 1.1 Eos # (Auto) 0.0 Baso # (Auto) 0.0 Abs Immat Gran (auto) 0.06 H Absolute Neuts (auto) 9.5 H Absolute Nucleated RBC 0.000 Nucleated RBC % (auto) 0.0 Sodium 140 Potassium 4.4 Chloride 108 Carbon Dioxide 26 Anion Gap 10 L BUN 10 Creatinine 0.73 Estim Creat Clear Calc 90.6 Estimated GFR > 60 Fasting Glucose 120 H Calcium 9.2 Discharge Plan Discharge Patient Disposition: Home Health Service Referrals: Anali Gutierrez PA-C [Physician Aircraft Air Conditioning Mechanic] - 1 Week (2WK PO: Vicky ball/ 01/15/24) Discharge Medications: New celecoxib 200 mg Capsule 200 mg PO BID 30 Days Qty: 60 0RF aspirin 325 mg Tablet 325 mg PO Q12H 28 Days Qty: 56 0RF gabapentin 100 mg Capsule 100 mg PO BEDTIME 7 Days Qty: 7 0RF oxycodone 5 mg Tablet 5 mg PO Q4H PRN (Reason: Pain, Mild (Pain Scale 1-3)) 7 Days Qty: 42 0RF Rx Instructions: Partial Fill upon patient request. acetaminophen 325 mg Tablet 650 mg PO Q6H PRN (Reason: Pain, Mild (Pain Scale 1-3), fever or headache) 30 Days Qty: 240 0RF methocarbamol 500 mg Tablet 500 mg PO TID 7 Days Qty: 21 0RF Continued cholecalciferol (vitamin D3) [Vitamin D3] 50 mcg (2,000 unit) Capsule 50 mcg PO QAM progesterone micronized 100 mg capsule 100 mg PO BEDTIME estradiol 0.025 mg/24 hr patch weekly 1 patch topical QWEEK Discontinued tramadol 50 mg tablet 25 mg PO BEDTIME PRN (Reason: Pain) Discharge Orders: Discharge Order (Routine); Ordered 01/16/24 Ordered By: Ricky Green Diet: Regular diet Activity on Discharge: Use cane or walker Activity Restrictions/Additional Instructions: Physical Therapy for Total knee arthroplasty: WBAT, gait training, ROM 0-12, quad strength Limit stair climbing No showering, no tub bath-keep dressing clean, dry and intact No driving x6 weeks Continue Aspirin twice a day x 6 weeks Follow up with [facility] Orthopedics in 2 weeks: Print Language: Nepali
--- NOTE | 2024-01-16 13:49 | MHC.CM.PN ---
PT IS DCD TODAY WITH [facility]
--- NOTE | 2024-01-17 09:47 | HO.POSTANES ---
Post Anesthesia Evaluation Post Anesthesia Evaluation Date of Service: 01/17/24 Anesthesia: Spinal Mental Status: Awake Pain Control: Satisfactory Nausea/Vomiting: None Hydration: Adequate Anesthesia-Related Issues: No Anes. Related Issues
== END 2024-01-16 14:39 | disposition home health service (06) ==
LOC: HO.SSS 07:28 → HO.S3 15:50
PROVIDERS: Physician Assistant; PCP Internal Medicine; Visit Provider Orthopaedic Surgery
PROC: (CPT 27447; principal; 2024-01-15 10:30)
DX: M17.11 Unilateral primary osteoarthritis, right knee (principal); M25.561 Pain in right knee; M23.51 Chronic instability of knee, right knee; G89.29 Other chronic pain; M54.50 Low back pain, unspecified; M51.369 Other intervertebral disc degeneration, lumbar region without mention of lumbar back pain or lower extremity pain; M47.816 Spondylosis without myelopathy or radiculopathy, lumbar region; Z79.891 Long term (current) use of opiate analgesic; Z79.1 Long term (current) use of non-steroidal anti-inflammatories (NSAID); Z79.899 Other long term (current) drug therapy; Z98.890 Other specified postprocedural states; Z87.891 Personal history of nicotine dependence
CPT/HCPCS: 27447; 36415; 80048; 85025; 86850; 86900; 86901; 87640; 87641; 88305; 88311; 97110; 97116; 97162; C1776; J0131; J0665; J0690; J1100; J1171; J2003; J2250; J2405; J2704; J3010; J3370; J7120

== ENCOUNTER → 2024-01-15 07:27 | Outpatient (BNV) | payer OTHER, SELFPAY | PROVIDERS: PCP Internal Medicine; Visit Provider Orthopaedic Surgery | DX: Z47.1 Aftercare following joint replacement surgery (principal); Z96.651 Presence of right artificial knee joint | CPT/HCPCS: 27447; 99024; G0180 ==

== ENCOUNTER 2024-02-01 11:14 | Outpatient (REF) | payer OTHER, SELFPAY ==
--- OUTSIDE RECORDS SUMMARY | 2024-02-02 11:21 | XMS_ITS ---
Author Organization [facility] Address [address] [place] [address] Care Team Providers Care Assayer Name Role Phone Livan Chance MD Primary Care Provider UnavailBentley Shane [phone] REASON FOR VISIT cx ON 09/05 Encounters Encounter Location Date Provider Diagnosis [facility] [address] [place] [address] 08/30/2022 Bentley Parikh Plan Of Treatment No Information Progress Notes * Gianna SIDHU LDOB:[birth year] (62 yo F)Acc No.[id number]:08/30/2022 Patient:?Gianna Sidhu :1960???Age:62 Y???Sex:Female Address:[address] [place] [address] * true * Date:? Generated for Printi ng/Rylan/eTransmitting on:?02/02/2024 11:21 AM EST
--- OUTSIDE RECORDS SUMMARY | 2024-02-02 11:21 | XMS_ITS | Patient Health Record ---
[facility] Address [address] [facility] [place] [address] Care Team Providers Care Switch House Operator Name Role Phone Livan Chance MD Primary Care Provider Bentley Jade Unavailable [phone] Reason For Referral No Information Medications Medication [...] Status Risk Notes Problem Acquired hallux valgus (09364724) Hallux valgus (acquired), left foot (M20.12) Active confirmed Problem Acquired hallux valgus (94631279) Hallux valgus (acquired), right foot (M20.11) Active confirmed Plan Of Treatment Pending Test Test Name Order Date X ray : Foot, left 2V 08/21/2017 X ray : Foot, right 2V 08/21/2017 Insurance Providers Payer Name Payer Address Payer Phone Subscriber Number Group Number Insured Name Patient Relationship to Insured Coverage Start Date Coverage End Date Blue Benefits [address] [address] [place] [address] [phone] [id number] Gianna Sidhu Self - patient is the insured Medical (General) History Medical History History ICD Code Arthritis Back,Hip,and Knee pain Cataracts Hiatal hernia Reflux ( GERD) Chicken pox covid-19 Sciatica Surgical History Surgery Date(Month/Year) 12/27/1997 right knee arthroscopy 2007 cataract surgery
--- OUTSIDE RECORDS SUMMARY | 2024-02-02 11:21 | XMS_ITS ---
Author Organization [facility] Address [address] [place] [address] Care Team Providers Care Wind Instrument Repairer Name Role Phone Livan Chance MD Primary Care Provider Bentley Jade [phone] Medications Medication SIG (Take, Route, Fr equency, [...] 09/05/2022 Encounters Encounter Location Date Provider Diagnosis [facility] [address] [place] [address] 09/05/2022 Bentley Parikh Plan Of Treatment No Information Progress Notes * Gianna SIDHU LDOB:[birth year] (63 yo F)Acc No.[id number]:09/05/2022 Progress Notes Patient:?Gianna SIDHU Provider:?Bentley Parikh DPM :1960???Age:62 Y???Sex:Female D ate:09/05/2022 Address:[address] [place] [address], [facility] Pcp:Livan Chance MD Subjective: * Chief Complaints: [...] ?Exercise: yes, walking. ?Marital status: . ?Occupation: [employer]. * Medications:?Taking Progeste elva , Taking Diclofenac [...] DPM Date:? 023 Generated for Yael corona/Rylan/Diana on:?02/02/2024 11:21 AM EST
== END 2024-02-01 11:15 | disposition home or self-care (01) ==
LOC: HO.HOSX 11:14
PROVIDERS: Visit Provider Physician Assistant
DX: M25.561 Pain in right knee (principal); M25.562 Pain in left knee
CPT/HCPCS: 73560; 73562

== ENCOUNTER 2024-02-01 15:15 | Outpatient (AMB) | payer OTHER, SELFPAY ==
--- OUTSIDE RECORDS SUMMARY | 2024-02-01 15:17 | XMS_ITS ---
Author Organization [facility] Address [address] [place] [address] Care Team Providers Care Computational Sciences Professor Name Role Phone Livan Chance MD Primary Care Provider Bentley Jade [phone] Medications Medication SIG (Take, Route, Fr equency, [...] 09/05/2022 Encounters Encounter Location Date Provider Diagnosis [facility] [address] [place] [address] 09/05/2022 Bentley Parikh Plan Of Treatment No Information Progress Notes * Gianna SIDHU LDOB:[birth year] (63 yo F)Acc No.[id number]:09/05/2022 Progress Notes Patient:?Gianna SIDHU Provider:?Bentley Parikh DPM :1960???Age:62 Y???Sex:Female D ate:09/05/2022 Address:[address] [place] [address], [facility] Pcp:Livan Chance MD Subjective: * Chief Complaints: [...] ?Exercise: yes, walking. ?Marital status: . ?Occupation: [employer]. * Medications:?Taking Progeste elva , Taking Diclofenac [...] DPM Date:? 023 Generated for Yael corona/Rylan/Diana on:?02/01/2024 03:17 PM EST
--- OUTSIDE RECORDS SUMMARY | 2024-02-01 15:18 | XMS_ITS | Patient Health Record ---
[facility] Address [address] [facility] [place] [address] Care Team Providers Care Decorator Street And Building Name Role Phone Livan Chance MD Primary Care Provider Bentley Jade Unavailable [phone] Reason For Referral No Information Medications Medication [...] Status Risk Notes Problem Acquired hallux valgus (19121919) Hallux valgus (acquired), left foot (M20.12) Active confirmed Problem Acquired hallux valgus (29683972) Hallux valgus (acquired), right foot (M20.11) Active confirmed Plan Of Treatment Pending Test Test Name Order Date X ray : Foot, left 2V 08/21/2017 X ray : Foot, right 2V 08/21/2017 Insurance Providers Payer Name Payer Address Payer Phone Subscriber Number Group Number Insured Name Patient Relationship to Insured Coverage Start Date Coverage End Date Blue Benefits [address] [address] [place] [address] [id number] Gianna Sidhu Self - patient is the insured Medical (General) History Medical History History ICD Code Arthritis Back,Hip,and Knee pain Cataracts Hiatal hernia Reflux ( GERD) Chicken pox covid-19 Sciatica Surgical History Surgery Date(Month/Year) 12/27/1997 right knee arthroscopy 2007 cataract surgery
--- OUTSIDE RECORDS SUMMARY | 2024-02-01 15:18 | XMS_ITS ---
Author Organization [facility] Address [address] [place] [address] Care Team Providers Care Glass Checker Name Role Phone Livan Chance MD Primary Care Provider UnavailBentley Shane [phone] REASON FOR VISIT cx ON 09/05 Encounters Encounter Location Date Provider Diagnosis [facility] [address] [place] [address] 08/30/2022 Bentley Parikh Plan Of Treatment No Information Progress Notes * Gianna SIDHU LDOB:[birth year] (62 yo F)Acc No.[id number]:08/30/2022 Patient:?Gianna Sidhu :1960???Age:62 Y???Sex:Female Address:[address] [place] [address] * true * Date:? Generated for Printi ng/Rylan/eTransmitting on:?02/01/2024 03:17 PM EST
--- NOTE | 2024-02-01 15:26 | MHC.OFFVIS ---
Intake Visit Reasons: 2WK PO: R TKA w/ 01/15/24 Intake Note: Ruth is a 63 year old female who presents today for a post op appointment s/p right TKA 01/15/24 Patient reports still having pain in her knee since surgery. Allergies banana Allergy (Severe, Verified 01/10/24 14:19) severe nausea avocado [AVOCADO] Allergy (Intermediate, Verified 01/10/24 14:19) Vomiting HPI HPI 2WK PO: R TKA w/ 01/15/24: Details: 63-year-old female who presents in the office today for a 17 days status post right total knee arthroplasty, which was performed on 01/15/[address] Maddox. While in the office today, the patient reports experiencing pain in her right knee post-surgery. [facility] Medical History Hiatal hernia Back pain Lumbar spondylosis Arthritis GERD (gastroesophageal reflux disease) (~10/2009) Surgical History Hx of section Hx of bilateral cataract extraction S/P right knee arthroscopy Hx of colonoscopy H/O esophagogastroduodenoscopy Family History Father Emphysema lung Mother Uterine cancer Sister Lymphoma Social History Household Members: Family Housing: House Are you a primary resident care provider to a significant other at home: No Do you presently have visiting nurse or other home services: No Alcohol intake: current Alcohol intake frequency: a few times a month Alcohol type: beer Patient Tobacco Use Status: Former Tobacco user Tobacco use type: Cigarette Years Smoked: 5 e-Cigarette/Vaping Use: Never Used service: No Current occupational status: employed Current occupation: [employer] MRI - Right HAnded Review of Systems Const All systems reviewed & are unremarkable except as noted in HPI and below Physical Exam Const General: cooperative, healthy appearing and no acute distress Resp Effort & Inspection: normal respiratory effort and able to speak in complete sentences Cardio Rate: regular rate Peripheral pulses: Peripheral pulses 2+ throughout GI Palpation (GI): Soft to palpation Skin Lesions: no lesions Rashes: no rashes Extrem Other: Right knee: Incision site is clean, dry and intact. Mike intact. No surrounding erythema or drainage. No signs of infection. Range of motion is 0-120 degrees. NVI Assessment & Plan Assessment & Plan (1) S/P total knee arthroplasty: Comment: Right total knee arthroplasty Code(s): Z96.659 - Presence of unspecified artificial knee joint Category: Surgical Plan Ms. Sidhu is a 63-year-old female who presents in the office today for a 17 days status post right total knee arthroplasty, which was performed on 01/15/[address] Maddox. While in the office today, the patient reports experiencing pain in her right knee post-surgery. [place] removed and steri-strips applied. She has transitioned to outpatient physical therapy and will continue with her PT sessions. Follow-up will be in [address] Maddox, or sooner if needed. X-rays of the right knee, which were obtained while in the office today and were reviewed by me, Anali Gutierrez PA-C, revealed: Intact Orthopedic hardware with proper alignment. Orders: Orders XR knee RT 3V Today M25.569 - Pain in unspecified knee XR knee LT 1V Today M25.569 - Pain in unspecified knee Patient Instructions: Scribed by Raiza Levi medical or surgical instrument maker, for Anali Gutierrez PA-C on 02/01/24 at 3:48 pm EST. Coding Level of Care Code Global (79646) Diagnoses S/P total knee arthroplasty Z96.659
== END 2024-02-01 15:50 | disposition home or self-care (01) ==
PROVIDERS: PCP Internal Medicine; Visit Provider Physician Assistant
DX: Z96.659 Presence of unspecified artificial knee joint (principal)
CPT/HCPCS: 99024

== ENCOUNTER 2024-02-05 12:20 | Outpatient (REF) | payer OTHER, SELFPAY ==
--- OUTSIDE RECORDS SUMMARY | 2024-02-05 12:23 | XMS_ITS ---
Author Organization [facility] Address [address] [place] [address] Care Team Providers Care Jewelry Repairer Name Role Phone Livan Chance MD Primary Care Provider UnavailBentley Shane [phone] REASON FOR VISIT cx ON 09/05 Encounters Encounter Location Date Provider Diagnosis [facility] [address] [place] [address] 08/30/2022 Bentley Parikh Plan Of Treatment No Information Progress Notes * Gianna SIDHU LDOB:[birth year] (62 yo F)Acc No.[id number]:08/30/2022 Patient:?Gianna Sidhu :1960???Age:62 Y???Sex:Female Address:[address] [place] [address] * true * Date:? Generated for Printi ng/Rylan/eTransmitting on:?02/05/2024 12:23 PM EST
--- OUTSIDE RECORDS SUMMARY | 2024-02-05 12:23 | XMS_ITS | Patient Health Record ---
[facility] Address [address] [facility] [place] [address] Care Team Providers Care Automotive Sales Representative Name Role Phone Livan Chance MD Primary Care Provider Bentley Jade Unavailable [phone] Reason For Referral No Information Medications Medication [...] Status Risk Notes Problem Acquired hallux valgus (45084897) Hallux valgus (acquired), left foot (M20.12) Active confirmed Problem Acquired hallux valgus (95614099) Hallux valgus (acquired), right foot (M20.11) Active confirmed Plan Of Treatment Pending Test Test Name Order Date X ray : Foot, left 2V 08/21/2017 X ray : Foot, right 2V 08/21/2017 Insurance Providers Payer Name Payer Address Payer Phone Subscriber Number Group Number Insured Name Patient Relationship to Insured Coverage Start Date Coverage End Date Blue Benefits [address] [address] [place] [address] [id number] Gianna Sidhu Self - patient is the insured Medical (General) History Medical History History ICD Code Arthritis Back,Hip,and Knee pain Cataracts Hiatal hernia Reflux ( GERD) Chicken pox covid-19 Sciatica Surgical History Surgery Date(Month/Year) 12/27/1997 right knee arthroscopy 2007 cataract surgery
[2024-02-05 14:09] LABS: C Reactive Protein 0.17 mg/dL (< or = 0.50)
== END 2024-02-05 12:21 | disposition home or self-care (01) ==
LOC: HO.LAB 12:20
PROVIDERS: PCP Internal Medicine; Visit Provider Internal Medicine
DX: M25.50 Pain in unspecified joint (principal)
CPT/HCPCS: 36415; 86140

== ENCOUNTER 2024-02-08 09:48 | Outpatient (REF) | payer OTHER, SELFPAY ==
--- OUTSIDE RECORDS SUMMARY | 2024-02-08 09:53 | XMS_ITS | Patient Health Record ---
[facility] Address [address] [facility] [place] [address] Care Team Providers Care Driller'S Assistant Name Role Phone Livan Chance MD Primary Care Provider Bentley Jade Unavailable [phone] Reason For Referral No Information Medications Medication [...] Status Risk Notes Problem Acquired hallux valgus (65702114) Hallux valgus (acquired), left foot (M20.12) Active confirmed Problem Acquired hallux valgus (26809529) Hallux valgus (acquired), right foot (M20.11) Active confirmed Plan Of Treatment Pending Test Test Name Order Date X ray : Foot, left 2V 08/21/2017 X ray : Foot, right 2V 08/21/2017 Insurance Providers Payer Name Payer Address Payer Phone Subscriber Number Group Number Insured Name Patient Relationship to Insured Coverage Start Date Coverage End Date Blue Benefits [address] [address] [place] [address] [id number] Gianna Sidhu Self - patient is the insured Medical (General) History Medical History History ICD Code Arthritis Back,Hip,and Knee pain Cataracts Hiatal hernia Reflux ( GERD) Chicken pox covid-19 Sciatica Surgical History Surgery Date(Month/Year) 12/27/1997 right knee arthroscopy 2007 cataract surgery
--- OUTSIDE RECORDS SUMMARY | 2024-02-08 09:53 | XMS_ITS ---
Author Organization [facility] Address [address] [place] [address] Care Team Providers Care Middle School Pe Teacher Name Role Phone Livan Chance MD Primary Care Provider UnavailBentley Shane [phone] REASON FOR VISIT cx ON 09/05 Encounters Encounter Location Date Provider Diagnosis [facility] [address] [place] [address] 08/30/2022 Bentley Parikh Plan Of Treatment No Information Progress Notes * Gianna SIDHU LDOB:[birth year] (62 yo F)Acc No.[id number]:08/30/2022 Patient:?Gianna Sidhu :1960???Age:62 Y???Sex:Female Address:[address] [place] [address] * true * Date:? Generated for Printi ng/Rylan/eTransmitting on:?02/08/2024 09:52 AM EST
[2024-02-08 10:06] LABS: MANUAL DIFF FLAG NO
[2024-02-08 10:49] LABS: Basophils Absolute Auto 0.1 X10*3/uL (0.0-0.2); Basophils Percent Auto 1.1 % (0-2); Eosinophils Absolute Auto 0.4 X10*3/uL (0.0-0.4); Eosinophils Percent Auto 5.4 % (0-4); Hematocrit 39.4 % (37.0-47.0); Hemoglobin 12.9 g/dl (12.0-16.0); Imm Gran Abs Auto 0.05 X10*3/uL (0.00-0.03); Imm Gran Pct Auto 0.7 % (0.0-0.4); Lymphocytes Absolute Auto 2.5 X10*3/uL (1.2-4.9); Lymphocytes Percent Auto 34.7 % (20-40); Mean Corpuscular HGB Conc 32.7 g/dl (31.0-35.0); Mean Corpuscular Hemoglobin 29.9 pg (27.0-33.0); Mean Corpuscular Volume 91.4 fL (80.0-98.0); Mean Platelet Volume 8.9 fL (9.4-12.3); Monocytes Absolute Auto 0.8 X10*3/uL (0.1-1.2); Monocytes Percent Auto 11.3 % (2-11); Neutrophils Absolute Auto 3.3 x10*3/uL (2.0-8.3); Neutrophils Percent Auto 46.8 % (45-73); Platelet Count 358 X10*3/uL (160-400); Red Blood Count 4.31 X10*6/uL (4.20-5.50); Red Cell Distribution Width 13.7 % (11.0-16.0); White Blood Count 7.1 X10*3/uL (4.8-10.8)
[2024-02-08 10:57] LABS: Estimated Average Glucose 105 mg/dL; Hemoglobin A1C 114.2408 umol/L; Hemoglobin A1c % 5.3 % (<6.0); Total Hemoglobin (HGBA1C) 3370.3558 umol/L
[2024-02-08 11:33] LABS: Alanine Aminotransferase 23 U/L (0-31); Albumin Level 4.4 g/dL (3.5-5.0); Anion Gap 13 (12-20); Aspartate Amino Transferase 20 U/L (5-31); Bilirubin Total 0.6 mg/dL (0.0-1.0); Blood Urea Nitrogen 19 mg/dL (9-16); C Reactive Protein 0.16 mg/dL (< or = 0.50); Carbon Dioxide 27 mmol/L (22-29); Chloride 106 mmol/L (96-108); Estimated Glomerular Filt Rate > 60; Glucose Random 89 mg/dL (60-115); Iron 74 mcg/dL (30-160); Percent Iron Saturation 24 % (15-50); Potassium 4.7 mmol/L (3.3-5.1); Sodium 141 mmol/L (135-145); Total Iron Binding Capacity 307 mcg/dL (228-428); Total Protein 7.3 g/dL (6.5-8.0); Unsaturated Iron Binding 233 ug/dL
[2024-02-08 11:58] LABS: Ferritin 136 ng/mL (10-250); Free T4 (Free Thyroxine) 1.03 ng/dL (0.71-1.85); Thyroid Stimulating Hormone 1.58 uIU/mL (0.32-4.0)
[2024-02-08 13:27] LABS: Alkaline Phosphatase 88 U/L (39-117)
== END 2024-02-08 09:49 | disposition home or self-care (01) ==
LOC: HO.LAB 09:48
PROVIDERS: PCP Internal Medicine; Visit Provider Internal Medicine
DX: Z01.818 Encounter for other preprocedural examination (principal); Z13.1 Encounter for screening for diabetes mellitus; M17.11 Unilateral primary osteoarthritis, right knee; M54.50 Low back pain, unspecified; G89.29 Other chronic pain; Z79.1 Long term (current) use of non-steroidal anti-inflammatories (NSAID); R53.83 Other fatigue; M25.50 Pain in unspecified joint
CPT/HCPCS: 36415; 80053; 82728; 83036; 83540; 84439; 84443; 85025; 86140

== ENCOUNTER 2024-02-22 15:07 | Outpatient (AMB) | payer OTHER, SELFPAY ==
--- NOTE | 2024-02-22 15:11 | MHC.OFFVIS ---
Vital Signs 02/22/24 15:12 Height 5 ft 8 in Weight 184 lb BMI 28.0 Intake Visit Reasons: 6WK PO: R TKA w/DR 01/15/24 Intake Note: Gianna is a 63 year old female who presents today for a post op appointment after undergoing a right total knee arthroplasty on 01/15/24. She reports mild to moderate intermittent discomfort in her right knee. She continues with her physical therapy. She does take oxycodone at night to help her sleep. Allergies banana Allergy (Severe, Verified 02/22/24 15:11) severe nausea avocado [AVOCADO] Allergy (Intermediate, Verified 02/22/24 15:11) Vomiting Medication List - Last Reconciled 02/22/24 by Zay Maddox MD acetaminophen 650 mg (2 x 325 mg) PO Q6H PRN 30 days aspirin 325 mg PO Q12H 4 weeks celecoxib 200 mg PO BID 30 days cholecalciferol (vitamin D3) (Vitamin D3) 50 mcg PO QAM estradiol 1 patch topical QWEEK oxycodone 5 mg PO Q6H PRN 7 days progesterone micronized 100 mg PO BEDTIME walker Folding front wheeled walker [facility] Medical History Hiatal hernia Back pain Lumbar spondylosis Arthritis GERD (gastroesophageal reflux disease) (~10/2009) Surgical History Hx of section Hx of bilateral cataract extraction S/P right knee arthroscopy Hx of colonoscopy H/O esophagogastroduodenoscopy Family History Father Emphysema lung Mother Uterine cancer Sister Lymphoma Social History Household Members: Family Housing: House Are you a primary primary care provider to a significant other at home: No Do you presently have visiting nurse or other home services: No Alcohol intake: current Alcohol intake frequency: a few times a month Alcohol type: beer Patient Tobacco Use Status: Former Tobacco user Tobacco use type: Cigarette Years Smoked: 5 e-Cigarette/Vaping Use: Never Used service: No Current occupational status: employed Current occupation: [employer] [place] - Right HAnded Physical Exam Vital Signs: BMI result Body Mass Index 28.0 Extrem Other: Right knee examination shows that the surgical incision is well healed, no erythema, range of motion from -3 degrees to 120 degrees, her patella tracks well Assessment & Plan Assessment & Plan (1) Right knee pain: Code(s): M25.561 - Pain in right knee Category: Medical Plan Ms. Sidhu continues to do very well after undergoing right total knee replacement surgery on 01/15/2024. She will continue going to physical therapy for now. She will gradually transition to a home exercise program. I will keep her out of work until her discomfort and strength have improved. I did refill her prescription for oxycodone. She will contact me prior to her follow-up appointment in 6 weeks should any questions or concerns arise. Feel free to call me at any time should questions regarding her orthopedic management arise. Medications: New amoxicillin Take four caps (2,000 mg) one hour before any dental work 2,000 mg (4 x 500 mg) PO ONCE 20 caps 3RF Changed From oxycodone Partial Fill upon patient request. 5 mg PO Q6H 7 days PRN 28 tabs 0RF Pain, Mild (Pain Scale 1-3) To oxycodone Partial Fill upon patient request. 5 mg PO Q8H PRN 30 tabs 0RF pain Coding Level of Care Code Global (95682) Diagnoses Right knee pain M25.561
[2024-02-22 15:12] VITALS: BMI 28.0
--- OUTSIDE RECORDS SUMMARY | 2024-02-22 16:48 | XMS_ITS | Patient Health Record ---
[facility] Address [address] [facility] [place] [address] Care Team Providers Care Racecar Driver Name Role Phone Livan Chance MD Primary Care Provider Bentley Jade Unavailable [phone] Reason For Referral No Information Medications Medication [...] Status Risk Notes Problem Acquired hallux valgus (59192197) Hallux valgus (acquired), left foot (M20.12) Active confirmed Problem Acquired hallux valgus (28342229) Hallux valgus (acquired), right foot (M20.11) Active confirmed Plan Of Treatment Pending Test Test Name Order Date X ray : Foot, left 2V 08/21/2017 X ray : Foot, right 2V 08/21/2017 Insurance Providers Payer Name Payer Address Payer Phone Subscriber Number Group Number Insured Name Patient Relationship to Insured Coverage Start Date Coverage End Date Blue Benefits [address] [address] [place] [address] [id number] Gianna Sidhu Self - patient is the insured Medical (General) History Medical History History ICD Code Arthritis Back,Hip,and Knee pain Cataracts Hiatal hernia Reflux ( GERD) Chicken pox covid-19 Sciatica Surgical History Surgery Date(Month/Year) 12/27/1997 right knee arthroscopy 2007 cataract surgery
--- OUTSIDE RECORDS SUMMARY | 2024-02-22 16:48 | XMS_ITS ---
Author Organization [facility] Address [address] [place] [address] Care Team Providers Care Development Mgr Name Role Phone Livan Chance MD Primary Care Provider UnavailBentley Shane [phone] REASON FOR VISIT cx ON 09/05 Encounters Encounter Location Date Provider Diagnosis [facility] [address] [place] [address] 08/30/2022 Bentley Parikh Plan Of Treatment No Information Progress Notes * Gianna SIDHU LDOB:[birth year] (62 yo F)Acc No.[id number]:08/30/2022 Patient:?Gianna Sidhu :1960???Age:62 Y???Sex:Female Address:[address] [place] [address] * true * Date:? Generated for Printi cj/Rylan/eTransmitting on:?02/22/2024 04:47 PM EST
--- OUTSIDE RECORDS SUMMARY | 2024-02-22 16:48 | XMS_ITS ---
Author Organization [facility] Address [address] [place] [address] Care Team Providers Care Substance Abuse Rn Name Role Phone Livan Chance MD Primary Care Provider Bentley Jade [phone] Medications Medication SIG (Take, Route, Fr equency, [...] 09/05/2022 Encounters Encounter Location Date Provider Diagnosis [facility] [address] [place] [address] 09/05/2022 Bentley Parikh Plan Of Treatment No Information Progress Notes * Gianna SIDHU LDOB:[birth year] (63 yo F)Acc No.[id number]:09/05/2022 Progress Notes Patient:?Gianna SIDHU Provider:?Bentley Parikh DPM :1960???Age:62 Y???Sex:Female D ate:09/05/2022 Address:[address] [place] [address], [facility] Pcp:Livan Chance MD Subjective: * Chief Complaints: [...] ?Exercise: yes, walking. ?Marital status: . ?Occupation: [employer]. * Medications:?Taking Progeste elva , Taking [...] DPM Date:? 023 Generated for Yael corona/Rylan/Diana on:?02/22/2024 04:47 PM EST
== END 2024-02-22 15:35 | disposition home or self-care (01) ==
PROVIDERS: PCP Internal Medicine; Visit Provider Orthopaedic Surgery
DX: M25.561 Pain in right knee (principal)
CPT/HCPCS: 99024

== ENCOUNTER → 2024-02-22 15:07 | Outpatient (BNVA) | payer OTHER, SELFPAY | PROVIDERS: PCP Internal Medicine; Visit Provider Orthopaedic Surgery ==

== ENCOUNTER 2024-02-26 11:52 | Outpatient (AMB) | payer OTHER, SELFPAY ==
[2024-02-26 11:59] VITALS: BP 121/62; PULSE 73; RESP 16; O2SAT 99; BMI 28.0
--- NOTE | 2024-02-26 11:59 | MHC.OFFVIS ---
Vital Signs 02/26/24 11:59 Height 5 ft 8 in Weight 184 lb BMI 28.0 BP 121/62 Blood Pressure Location Lt brachial Position Sitting Respiration 16 Pulse 73 Pulse Source Pulse Oximeter Pulse Oximetry (%) 99 Oxygen Delivery Method Room Air Intake Visit Reasons: Low back pain and weakness Allergies banana Allergy (Severe, Verified 02/26/24 12:01) severe nausea avocado [AVOCADO] Allergy (Intermediate, Verified 02/26/24 12:01) Vomiting Medication List - Last Reconciled 02/26/24 by Lora Whelan LPN acetaminophen 650 mg (2 x 325 mg) PO Q6H PRN 30 days amoxicillin 2,000 mg (4 x 500 mg) PO ONCE aspirin 325 mg PO Q12H 4 weeks celecoxib 200 mg PO BID 30 days cholecalciferol (vitamin D3) (Vitamin D3) 50 mcg PO QAM estradiol 1 patch topical QWEEK oxycodone 5 mg PO Q8H PRN progesterone micronized 100 mg PO BEDTIME walker Folding front wheeled walker HPI HPI Low back pain and weakness: Details: Gianna is status post right knee replacement now 6 weeks out. Knee replacement has helped improve her gait which has helped improve her low back symptoms but she continues to have significant mid and low back pain and discomfort for which she is interested in physical therapy. On exam today: Appears afebrile. Alert and oriented. Mood and affect appropriate. Follows and participates in conversation appropriately. Respiratory effort is unlabored. Able to transition from sit to stand unassisted. Ambulates with bilaterally normal heel strike and toe off. Able to stand and walk on toes and heels. [facility] Medical History Hiatal hernia Back pain Lumbar spondylosis Arthritis GERD (gastroesophageal reflux disease) (~10/2009) Surgical History Hx of section Hx of bilateral cataract extraction S/P right knee arthroscopy Hx of colonoscopy H/O esophagogastroduodenoscopy Family History Father Emphysema lung Mother Uterine cancer Sister Lymphoma Social History Household Members: Family Housing: House Are you a primary respite care provider to a significant other at home: No Do you presently have visiting nurse or other home services: No Alcohol intake: current Alcohol intake frequency: a few times a month Alcohol type: beer Patient Tobacco Use Status: Former Tobacco user Tobacco use type: Cigarette Years Smoked: 5 e-Cigarette/Vaping Use: Never Used service: No Current occupational status: employed Current occupation: [employer] MRI - Right HAnded Physical Exam Vital Signs: Last Vital Signs Pulse 73 02/26/24 11:59 Resp 16 02/26/24 11:59 BP 121/62 02/26/24 11:59 Pulse Ox 99 02/26/24 11:59 Oxygen Delivery Method Room Air 02/26/24 11:59 BMI result Body Mass Index 28.0 Results Reviewed Results Reviewed: Once again MRI reviewed showing Modic changes most pronounced at L2-3 and L3-4 associated with mild spondylolisthesis. She also has significant lumbar facet degeneration. Assessment & Plan Assessment & Plan (1) Lumbar radiculopathy: Code(s): M54.16 - Radiculopathy, lumbar region Category: Medical (2) Vertebrogenic low back pain: Code(s): M54.51 - Vertebrogenic low back pain Category: Medical Plan Discussed both temporary medial branch nerve and multifidus muscle stimulation as a potential treatment option as well as ablation of the basivertebral nerve. 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 She would like to go for a program of physical therapy at this time for which an order was placed. I once again discussed the Intracept procedure with her which I think she is a reasonable candidate for given her history of axial back pain worse with standing and prolonged activity and Modic changes noted on MRI at L2-3 and L3-4 levels. She will follow-up as needed for interventional treatment if repeat physical therapy alone is not helpful. Orders: Orders PT Evaluation and Treatment 02/26/24 M54.16 - Radiculopathy, lumbar region, M54.51 - Vertebrogenic low back pain Coding Level of Care Code Est Pt Level 4 (33568) Diagnoses Lumbar radiculopathy M54.16 Vertebrogenic low back pain M54.51
--- OUTSIDE RECORDS SUMMARY | 2024-02-26 14:09 | XMS_ITS | Patient Health Record ---
[facility] Address [address] [facility] [place] [address] Care Team Providers Care Switchboard Wirer Name Role Phone Livan Chance MD Primary Care Provider Bentley Jade Unavailable [phone] Reason For Referral No Information Medications Medication [...] Status Risk Notes Problem Acquired hallux valgus (63875218) Hallux valgus (acquired), left foot (M20.12) Active confirmed Problem Acquired hallux valgus (08586121) Hallux valgus (acquired), right foot (M20.11) Active confirmed Plan Of Treatment Pending Test Test Name Order Date X ray : Foot, left 2V 08/21/2017 X ray : Foot, right 2V 08/21/2017 Insurance Providers Payer Name Payer Address Payer Phone Subscriber Number Group Number Insured Name Patient Relationship to Insured Coverage Start Date Coverage End Date Blue Benefits [address] [address] [place] [address] [id number] Gianna Sidhu Self - patient is the insured Medical (General) History Medical History History ICD Code Arthritis Back,Hip,and Knee pain Cataracts Hiatal hernia Reflux ( GERD) Chicken pox covid-19 Sciatica Surgical History Surgery Date(Month/Year) 12/27/1997 right knee arthroscopy 2007 cataract surgery
--- OUTSIDE RECORDS SUMMARY | 2024-02-26 14:09 | XMS_ITS ---
Author Organization [facility] Address [address] [place] [address] Care Team Providers Care Resort Keeper Name Role Phone Livan Chance MD Primary Care Provider Bentley Jade [phone] Medications Medication SIG (Take, Route, Fr equency, [...] 09/05/2022 Encounters Encounter Location Date Provider Diagnosis [facility] [address] [place] [address] 09/05/2022 Bentley Parikh Plan Of Treatment No Information Progress Notes * Gianna SIDHU LDOB:[birth year] (63 yo F)Acc No.[id number]:09/05/2022 Progress Notes Patient:?Gianna SIDHU Provider:?Bentley Parikh DPM :1960???Age:62 Y???Sex:Female D ate:09/05/2022 Address:[address] [place] [address], [facility] Pcp:Livan Chance MD Subjective: * Chief Complaints: [...] ?Exercise: yes, walking. ?Marital status: . ?Occupation: [employer]. * Medications:?Taking Progeste elva , Taking [...] DPM Date:? 023 Generated for Yael corona/Rylan/Diana on:?02/26/2024 02:09 PM EST
--- OUTSIDE RECORDS SUMMARY | 2024-02-26 14:09 | XMS_ITS ---
Author Organization [facility] Address [address] [place] [address] Care Team Providers Care Property Manager Name Role Phone Livan Chance MD Primary Care Provider UnavailBentley Shane [phone] REASON FOR VISIT cx ON 09/05 Encounters Encounter Location Date Provider Diagnosis [facility] [address] [place] [address] 08/30/2022 Bentley Parikh Plan Of Treatment No Information Progress Notes * Gianna SIDHU LDOB:[birth year] (62 yo F)Acc No.[id number]:08/30/2022 Patient:?Gianna Sidhu :1960???Age:62 Y???Sex:Female Address:[address] [place] [address] * true * Date:? Generated for Printi cj/Rylan/eTransmitting on:?02/26/2024 02:09 PM EST
== END 2024-02-26 12:20 | disposition home or self-care (01) ==
PROVIDERS: PCP Internal Medicine; Visit Provider Internal Medicine
DX: M54.16 Radiculopathy, lumbar region (principal); M54.51 Vertebrogenic low back pain
CPT/HCPCS: 99214

== ENCOUNTER → 2024-02-26 11:52 | Outpatient (BNVA) | payer OTHER, SELFPAY | PROVIDERS: PCP Internal Medicine; Visit Provider Internal Medicine ==

== ENCOUNTER 2024-03-07 12:53 | Outpatient (RCR) | payer OTHER, SELFPAY ==
--- NOTE | 2024-01-31 11:39 | MHC.PT.EP ---
[facility] [place] [facility] [place] [facility] [place] [facility] [address] Juanjo Padilla [address] [phone] F: [phone] F: [phone] F: [phone] F: [phone] Physical Therapy Plan of Care Date of Evaluation: 01/31/24 Date of Surgery: 01/15/24 Diagnosis: TKA Assessment: 63 y/o female s/p R TKA on 01/15/24. She had one hospital overnight stay and then d/c home. She had 5 home PT visits and transitioned from RW to cane. Currently she reports pain and difficulty with sleeping, squatting, walking, and stairs. Examination shows mild swelling, dressing D+I (dry blood), knee ROM 0-116 (takes time to get to 0*), fair quad set, noted lag with SLR, decreased strength, and impaired gait pattern. Recommend PT 2x/week for 5 weeks to address impairments, implement HEP, and optimize functional mobility. Frequency and Duration: The patient will be seen 2x/week for 5 weeks Short Term Goals: 3 weeks I with HEP Knee ROM 0-120 Mid Level Business Analyst Goals: 5 weeks I with HEP and self management of sx Pt will be able to ambualte without AD > 25 min with pain < 3/10 Pt will be able to ascend/descend stairs step through pattern and pain < 3/10 Treatment Plan: Modalities to reduce pain, spasms and effusion. Manual therapy to restore motion and function. Therapeutic exercise to improve strength and flexibility. Neuromuscular re-education for posture and balance. Therapeutic activities to return to functional activities of daily living. Electronically signed by: Nanda Bowser PT Please sign and return to therapist. Thank you for your referral.
--- NOTE | 2024-03-07 13:57 | MHC.PT.DC ---
[facility] [place] Office [place] Office [place] Office [address] Juanjo Padilla [address] [phone] F: [phone] F: [phone] F: [phone] F: [phone] Physical Therapy Discharge Report Diagnosis: TKA Date of Surgery: 01/15/24 Date of Evaluation: 01/31/24 Date of Discharge: 03/07/24 Treatments to Date: 10 Cancellations to Date: 0 No Shows to Date: 0 Discharge Status: Achieved Goals Improved Function Independent with HEP Discharge Summary: Pt has met goals for her TKA with good ROM 0-130, ambulating without assistive device and able to ascend descend stairs reciprocally. LEFS 55/80. SHe reports feeling more limited d/t LBP and will start PT for that in the near future. Reviewed HEP and no further questions at this time. Electronically signed by: Nanda Bowser PT Please sign and return to therapist. Thank you for your referral.
== END 2024-03-07 13:57 | disposition home or self-care (01) ==
LOC: HO.PT 12:53
PROVIDERS: PCP Internal Medicine; Visit Provider Physician Assistant
DX: Z96.651 Presence of right artificial knee joint (principal)
CPT/HCPCS: 97110; 97161; 97530

== ENCOUNTER 2024-03-28 14:52 | Outpatient (AMB) | payer OTHER, SELFPAY ==
--- NOTE | 2024-03-28 14:53 | A.OFFVIS_ITS ---
Vital Signs 03/28/24 15:02 Height 5 ft 8 in Weight 184 lb BMI 28.0 Intake Visit Reasons: PO: R TKA w/DR 01/15/24 Intake Note: Gianna is a 63 year old female who presents today post-operatively after undergoing right total knee replacement surgery on 01/15/24. Patient wishes to return to work Monday. She continues with her home exercise program. She denies any fevers or chills. Allergies banana Allergy (Severe, Verified 03/28/24 15:02) severe nausea avocado [AVOCADO] Allergy (Intermediate, Verified 03/28/24 15:02) Vomiting Medication List - Last Reconciled 03/28/24 by Zay Maddox MD acetaminophen 650 mg (2 x 325 mg) PO Q6H PRN 30 days amoxicillin 2,000 mg (4 x 500 mg) PO ONCE aspirin 325 mg PO Q12H 4 weeks celecoxib 200 mg PO BID 30 days cholecalciferol (vitamin D3) (Vitamin D3) 50 mcg PO QAM estradiol 1 patch topical QWEEK oxycodone 5 mg PO Q8H PRN progesterone micronized 100 mg PO BEDTIME walker Folding front wheeled walker [facility] Medical History Hiatal hernia Back pain Lumbar spondylosis Arthritis GERD (gastroesophageal reflux disease) (~10/2009) Surgical History Hx of section Hx of bilateral cataract extraction S/P right knee arthroscopy Hx of colonoscopy H/O esophagogastroduodenoscopy Family History Father Emphysema lung Mother Uterine cancer Sister Lymphoma Social History Household Members: Family Housing: House Are you a primary vehicle care specialist to a significant other at home: No Do you presently have visiting nurse or other home services: No Alcohol intake: current Alcohol intake frequency: a few times a month Alcohol type: beer Patient Tobacco Use Status: Former Tobacco user Tobacco use type: Cigarette Years Smoked: 5 e-Cigarette/Vaping Use: Never Used service: No Current occupational status: employed Current occupation: [employer] MRI - Right HAnded Physical Exam Vital Signs: BMI result Body Mass Index 28.0 Extrem Other: Right knee examination shows that the surgical incision is well healed, no erythema, full active extension and flexion to 120 degrees, her patella tracks well Assessment & Plan Assessment & Plan (1) Right knee pain: Code(s): M25.561 - Pain in right knee Category: Medical Plan Ms. Sidhu continues to do very well after undergoing right total knee replacement surgery on 01/15/2024. She will continue with her physical therapy exercises. I did clear her to return to work next week as per her request. She does know to take antibiotics before any dental work. She will contact me prior to her follow-up appointment in 3 months should any questions or concerns arise. Feel free to call me at any time should questions regarding her orthopedic management arise. Coding Level of Care Code Global (57723) Diagnoses Right knee pain M25.561
--- OUTSIDE RECORDS SUMMARY | 2024-03-28 14:55 | XMS_ITS | Patient Health Record ---
[facility] Address [address] [place] [address] Care Team Providers Care Pie Dough Roller Name Role Phone Livan Chance MD Primary Care Provider Bentley Jade Unavailable [phone] Reason For Referral No Information Medications Medication [...] Status Risk Notes Problem Acquired hallux valgus ([id number]) Hallux valgus (acquired), left foot (M20.12) Active confirmed Problem Acquired hallux valgus ([id number]) Hallux valgus (acquired), right foot (M20.11) Active confirmed Plan Of Treatment Pending Test Test Name Order Date X ray : Foot, left 2V 08/21/2017 X ray : Foot, right 2V 08/21/2017 Insurance Providers Payer Name Payer Address Payer Phone Subscriber Number Group Number Insured Name Patient Relationship to Insured Coverage Start Date Coverage End Date Blue Benefits [address] [address] [place] [address] [id number] Gianna Sidhu Self - patient is the insured Medical (General) History Medical History History ICD Code Arthritis Back,Hip,and Knee pain Cataracts Hiatal hernia Reflux ( GERD) Chicken pox covid-19 Sciatica Surgical History Surgery Date(Month/Year) 12/27/1997 right knee arthroscopy 2007 cataract surgery
[2024-03-28 15:02] VITALS: BMI 28.0
== END 2024-03-28 15:22 | disposition home or self-care (01) ==
LOC: HO.HOS 14:52
PROVIDERS: PCP Internal Medicine; Visit Provider Orthopaedic Surgery
DX: M25.561 Pain in right knee (principal)
CPT/HCPCS: 99024

== ENCOUNTER → 2024-03-28 14:52 | Outpatient (BNVA) | payer OTHER, SELFPAY | PROVIDERS: PCP Internal Medicine; Visit Provider Orthopaedic Surgery ==

== ENCOUNTER 2024-04-22 12:58 | Outpatient (RCR) | payer OTHER, SELFPAY ==
--- NOTE | 2024-03-19 14:47 | MHC.PT.EP ---
[facility] [place] Office [place] Office [place] Office [address] Juanjo Padilla [address] [phone] F: [phone] F: [phone] F: [phone] F: [phone] Physical Therapy Plan of Care Date of Evaluation: 03/19/24 Date of Surgery: Diagnosis: vertebrogenic LBP radiculopathy lumbar region Assessment: 63 y/o female referred to PT with LBP and radiculopathy. Reports pain and difficulty with prolonged driving, prolonged standing, prolonged walking and feels very stiff throughout the day. Examination shows decreased lumbar/ hip ROM, decreased hip/core strength, apical breathing pattern, scoliosis, pain, and impaired postural awareness. Recommend PT 2x/week for 5 weeks to address impairments, implement HEP, and optimize functional mobility. Frequency and Duration: The patient will be seen 2x/week for 5 weeks Short Term Goals: 3 weeks I with HEP Senior Care Goals: 5 weeks I with HEP and self management of sx pt will be able to walk > 20 minutes with pain < 3/10 Pt will be able to stand >20 minutes with pain < 3/10 Treatment Plan: Modalities to reduce pain, spasms and effusion. Manual therapy to restore motion and function. Therapeutic exercise to improve strength and flexibility. Neuromuscular re-education for posture and balance. Therapeutic activities to return to functional activities of daily living. Electronically signed by: Nanda Bowser PT Please sign and return to therapist. Thank you for your referral.
--- NOTE | 2024-04-22 14:07 | MHC.PT.DC ---
[facility] [place] Office [place] Office [place] Office [address] Juanjo Padilla [address] [phone] F: [phone] F: [phone] F: [phone] F: [phone] Physical Therapy Discharge Report Diagnosis: vertebrogenic LBP radiculopathy lumbar region Date of Surgery: Date of Evaluation: 03/19/24 Date of Discharge: 04/22/24 Treatments to Date: 7 Cancellations to Date: 0 No Shows to Date: 0 Discharge Status: Independent with HEP Discharge Summary: Reviewed HEP and use of ice for back pain. At this time, pt continues with pain limiting ability to stand or sit for prolonged periods of time. Discussed talking with doctor about alternate management such as acupuncture and also f/u with MD if pain increases. At this time, will d/c to I HEP as she has plateaued with only mild relief of sx. Electronically signed by: Nanda Bowser PT Please sign and return to therapist. Thank you for your referral.
== END 2024-04-22 14:07 | disposition home or self-care (01) ==
LOC: HO.PT 12:58
PROVIDERS: PCP Internal Medicine; Visit Provider Internal Medicine
DX: M54.51 Vertebrogenic low back pain (principal); M54.16 Radiculopathy, lumbar region
CPT/HCPCS: 97014; 97110; 97140; 97161

== ENCOUNTER 2024-05-29 11:19 | Outpatient (REF) | payer OTHER, SELFPAY ==
--- NOTE | ~2024-05-29 | XR_ITS ---
EXAMINATION: XR KNEE, RIGHT CLINICAL INFORMATION: M25.561 - Pain in right knee COMPARISON: 02/01/2024. TECHNIQUE: Three views of the right knee. FINDINGS: Total right knee arthroplasty with patellar resurfacing. Tibial, and femoral components are intact, well seated, in anatomic alignment. No periprosthetic fracture or complication. No bone lesions. No evidence of significant joint effusion. Ventral skin sandy have been removed. There is persistent anterior soft tissue swelling. XR/XR knee RT 3V IMPRESSION: Right knee total arthroplasty without complication. Electronically signed by: Kai Burton MD 05/30/2024 01:26 PM EDT
--- OUTSIDE RECORDS SUMMARY | 2024-05-30 14:05 | XMS_ITS | Patient Health Record ---
Author Organization [facility] Address [address] [facility] [place] [address] Care Team Providers Care Lube Attendant Name Role Phone Livan Chance MD Primary Care Provider Bentley Jade Unavailable [phone] Reason For Referral No Information Medications Medication [...] Status Risk Notes Problem Acquired hallux valgus ([id number]) Hallux valgus (acquired), left foot (M20.12) Active confirmed Problem Acquired hallux valgus (95129209) Hallux valgus (acquired), right foot (M20.11) Active confirmed Plan Of Treatment Pending Test Test Name Order Date X ray : Foot, left 2V 08/21/2017 X ray : Foot, right 2V 08/21/2017 Insurance Providers Payer Name Payer Address Payer Phone Subscriber Number Group Number Insured Name Patient Relationship to Insured Coverage Start Date Coverage End Date Blue Benefits [address] [address] [place] [address] [id number] Gianna Sidhu Self - patient is the insured Medical (General) History Medical History History ICD Code Arthritis Back,Hip,and Knee pain Cataracts Hiatal hernia Reflux ( GERD) Chicken pox covid-19 Sciatica Surgical History Surgery Date(Month/Year) 12/27/1997 right knee arthroscopy 2007 cataract surgery
== END 2024-05-29 11:20 | disposition home or self-care (01) ==
LOC: HO.HOSX 11:19
PROVIDERS: Visit Provider Orthopaedic Surgery
DX: M17.12 Unilateral primary osteoarthritis, left knee (principal); G89.29 Other chronic pain; Z96.651 Presence of right artificial knee joint
CPT/HCPCS: 73562

== ENCOUNTER 2024-05-29 14:23 | Outpatient (AMB) | payer OTHER, SELFPAY ==
--- NOTE | 2024-05-29 14:40 | A.OFFVIS_ITS ---
Intake Visit Reasons: Left knee pain Intake Note: Gianna is a 63 year old female who presents with complaints of left knee pain. She did undergo right total knee replacement surgery on 01/15/2024. She reports minimal discomfort in her right knee. She describes her left knee pain as sharp in nature. She has failed the last 3 months of conservative treatment which have included Tylenol, Celebrex, a home exercise program and physical therapy exercises. At this point her left knee pain is interfering with her activities of daily living and her ability to sleep well through the night. She has had cortisone injections in the past which gave her minimal relief. She did have a series of 3 Euflexxa injections given into her right knee prior to surgery which gave her good relief. She wishes to hold off on left knee surgery for as long as possible. Allergies banana Allergy (Severe, Verified 05/29/24 14:44) severe nausea avocado [AVOCADO] Allergy (Intermediate, Verified 05/29/24 14:44) Vomiting Medication List - Last Reconciled 05/29/24 by Zay Maddox MD acetaminophen 650 mg (2 x 325 mg) PO Q6H PRN 30 days amoxicillin 2,000 mg (4 x 500 mg) PO ONCE aspirin 325 mg PO Q12H 4 weeks celecoxib 200 mg PO BID 30 days cholecalciferol (vitamin D3) (Vitamin D3) 50 mcg PO QAM estradiol 1 patch topical QWEEK progesterone micronized 100 mg PO BEDTIME walker Folding front wheeled walker [facility] Medical History Hiatal hernia Back pain Lumbar spondylosis Arthritis GERD (gastroesophageal reflux disease) (~10/2009) Surgical History Hx of section Hx of bilateral cataract extraction S/P right knee arthroscopy Hx of colonoscopy H/O esophagogastroduodenoscopy Family History Father Emphysema lung Mother Uterine cancer Sister Lymphoma Social History Household Members: Family Housing: House Are you a primary progressive care nurse to a significant other at home: No Do you presently have visiting nurse or other home services: No Alcohol intake: current Alcohol intake frequency: a few times a month Alcohol type: beer Patient Tobacco Use Status: Former Tobacco user Tobacco use type: Cigarette Years Smoked: 5 e-Cigarette/Vaping Use: Never Used service: No Current occupational status: employed Current occupation: [employer] [place] MRI - Right HAnded Physical Exam Const Other: Well-nourished well-developed very friendly female awake alert and oriented x3 in no acute distress Extrem Other: Left knee examination shows a minimal effusion, palpable crepitus with range of motion, pain with range of motion, no instability Results Reviewed Results Reviewed: X-rays of the patient's left knee taken previously show joint space narrowing, subchondral sclerosis, no acute bony abnormalities Assessment & Plan Assessment & Plan (1) Left knee pain: Code(s): M25.562 - Pain in left knee Category: Medical Qualifiers: Chronicity: chronic Qualified Code(s): M25.562 - Pain in left knee; G89.29 - Other chronic pain (2) Osteoarthritis of left knee: Code(s): M17.12 - Unilateral primary osteoarthritis, left knee Category: Medical Plan Ms. Sidhu presents with left knee pain due to osteoarthritis. I had a lengthy discussion with the patient regarding the treatment options. She wishes to hold off on surgery for as long as possible. I agree with this plan. I will see if her insurance company will cover a series of 3 Euflexxa viscosupplementation injections. I will see her back once the injections are approved. Feel free to call me at any time should questions regarding her orthopedic management arise. I spent 21 minutes in reviewing the patient's records and imaging studies, seeing the patient and documenting in the medical record. Orders: Orders XR knee RT 3V 05/29/24 M25.561 - Pain in right knee Coding Level of Care Code Est Pt Level 3 (17399) Complex EM visit Add On G2211 Diagnoses Chronic pain of left knee M25.562; G89.29 Chronicity: chronic Osteoarthritis of left knee M17.12
--- OUTSIDE RECORDS SUMMARY | 2024-05-29 17:10 | XMS_ITS | Patient Health Record ---
[facility] Address [address] [place] [address] Care Team Providers Care Cleaning Specialist Name Role Phone Livan Chance MD Primary Care Provider Bentley Jade Unavailable [phone] Reason For Referral No Information Medications Medication [...] Status Risk Notes Problem Acquired hallux valgus ([id number]) Hallux valgus (acquired), left foot (M20.12) Active confirmed Problem Acquired hallux valgus (60344398) Hallux valgus (acquired), right foot (M20.11) Active confirmed Plan Of Treatment Pending Test Test Name Order Date X ray : Foot, left 2V 08/21/2017 X ray : Foot, right 2V 08/21/2017 Insurance Providers Payer Name Payer Address Payer Phone Subscriber Number Group Number Insured Name Patient Relationship to Insured Coverage Start Date Coverage End Date Blue Benefits [address] [address] [place] [address] [id number] Gianna Sidhu Self - patient is the insured Medical (General) History Medical History History ICD Code Arthritis Back,Hip,and Knee pain Cataracts Hiatal hernia Reflux ( GERD) Chicken pox covid-19 Sciatica Surgical History Surgery Date(Month/Year) 12/27/1997 right knee arthroscopy 2007 cataract surgery
--- OUTSIDE RECORDS SUMMARY | 2024-05-29 17:10 | XMS_ITS ---
Author Name [facility] Organization Unknown Encounters Encounter Type Encounter Reason Primary Diagnosis Location Date Ambulatory [facility] 12/16/2022 Ambulatory [facility] 12/16/2022
== END 2024-05-29 14:58 | disposition home or self-care (01) ==
LOC: HO.HOS 14:23
PROVIDERS: PCP Internal Medicine; Visit Provider Orthopaedic Surgery
DX: M25.562 Pain in left knee (principal); G89.29 Other chronic pain; M17.12 Unilateral primary osteoarthritis, left knee
CPT/HCPCS: 99213

== ENCOUNTER → 2024-05-29 14:26 | Outpatient (BNV) | payer OTHER, SELFPAY | PROVIDERS: Visit Provider Radiology Diagnostic Radiology | DX: M25.561 Pain in right knee (principal) | CPT/HCPCS: 73562 ==

== ENCOUNTER 2024-06-27 16:06 | Outpatient (REF) | payer OTHER, SELFPAY ==
--- OUTSIDE RECORDS SUMMARY | 2024-06-27 16:10 | XMS_ITS | Patient Health Record ---
Author [facility] Address [address] [facility] [place] [address] Care Team Providers Care Certified Orthotist/Pedorthist Name Role Phone Livan Chance MD Primary Care Provider Bentley Jade Unavailable [phone] Reason For Referral No Information Medications Medication [...] Status Risk Notes Problem Acquired hallux valgus ([id number]) Hallux valgus (acquired), left foot (M20.12) Active confirmed Problem Acquired hallux valgus (02765649) Hallux valgus (acquired), right foot (M20.11) Active confirmed Plan Of Treatment Pending Test Test Name Order Date X ray : Foot, left 2V 08/21/2017 X ray : Foot, right 2V 08/21/2017 Insurance Providers Payer Name Payer Address Payer Phone Subscriber Number Group Number Insured Name Patient Relationship to Insured Coverage Start Date Coverage End Date Blue Benefits [address] [address] [place] [address] [id number] Gianna Sidhu Self - patient is the insured Medical (General) History Medical History History ICD Code Arthritis Back,Hip,and Knee pain Cataracts Hiatal hernia Reflux ( GERD) Chicken pox covid-19 Sciatica Surgical History Surgery Date(Month/Year) 12/27/1997 right knee arthroscopy 2007 cataract surgery
== END 2024-06-27 16:07 | disposition home or self-care (01) ==
LOC: HO.MAMMO 16:06
PROVIDERS: PCP Internal Medicine; Visit Provider Internal Medicine
DX: Z12.31 Encounter for screening mammogram for malignant neoplasm of breast (principal)
CPT/HCPCS: 77063; 77067

== ENCOUNTER → 2024-06-27 16:15 | Outpatient (BNV) | payer OTHER, SELFPAY | PROVIDERS: PCP Internal Medicine; Visit Provider Internal Medicine | DX: Z12.31 Encounter for screening mammogram for malignant neoplasm of breast (principal) | CPT/HCPCS: 77063; 77067 ==

== ENCOUNTER 2024-07-02 14:49 | Outpatient (AMB) | payer OTHER, SELFPAY ==
[2024-07-02 14:54] VITALS: BMI 28.0
--- NOTE | 2024-07-02 14:54 | A.OFFVIS_ITS ---
Vital Signs 07/02/24 14:54 Height 5 ft 8 in Weight 184 lb BMI 28.0 Intake Visit Reasons: INJ- LT knee Euflexxa#1 Intake Note: Gianna is a 64 year old female who presents with complaints of progressively worsening left knee pain. She did undergo right total knee replacement surgery on 01/15/2024. She reports minimal discomfort in her right knee. She describes her left knee pain as sharp in nature. Her left knee pain has gotten worse over the last few months in spite of continued non operative treatments. She has tried Tylenol and Celebrex which gave her mild relief. She wishes to hold off on left knee surgery for as long as possible. Allergies banana Allergy (Severe, Verified 07/02/24 14:54) severe nausea avocado [AVOCADO] Allergy (Intermediate, Verified 07/02/24 14:54) Vomiting Medication List - Last Reconciled 07/03/24 by Zay Maddox MD acetaminophen 650 mg (2 x 325 mg) PO Q6H PRN 30 days amoxicillin 2,000 mg (4 x 500 mg) PO ONCE aspirin 325 mg PO Q12H 4 weeks celecoxib 200 mg PO BID 30 days cholecalciferol (vitamin D3) (Vitamin D3) 50 mcg PO QAM estradiol 1 patch topical QWEEK progesterone micronized 100 mg PO BEDTIME walker Folding front wheeled walker [facility] Medical History Hiatal hernia Back pain Lumbar spondylosis Arthritis GERD (gastroesophageal reflux disease) (~10/2009) Surgical History Hx of section Hx of bilateral cataract extraction S/P right knee arthroscopy Hx of colonoscopy H/O esophagogastroduodenoscopy Family History Father Emphysema lung Mother Uterine cancer Sister Lymphoma Social History Household Members: Family Housing: House Are you a primary health care aide to a significant other at home: No Do you presently have visiting nurse or other home services: No Alcohol intake: current Alcohol intake frequency: a few times a month Alcohol type: beer Patient Tobacco Use Status: Former Tobacco user Tobacco use type: Cigarette Years Smoked: 5 e-Cigarette/Vaping Use: Never Used service: No Current occupational status: employed Current occupation: [employer] [place] - Right HAnded Physical Exam Vital Signs: BMI result Body Mass Index 28.0 Const Other: Well-nourished well-developed very friendly female awake alert and oriented x3 in no acute distress Extrem Other: Left knee examination shows a minimal effusion, palpable crepitus with range of motion, pain with range of motion, no instability Office Procedures AMB Joint Injection/Aspiration Joint Injection/Aspiration Primary Site: left knee Prep: site was prepped using aseptic technique Injected: 20 mg of (Euflexxa viscosupplementation ) and 1% plain lidocaine Procedure: The patient tolerated the procedure well Coding - Large joint Procedure code (CPT) selection complete Results Reviewed Results Reviewed: X-rays of the patient's left knee taken previously show joint space narrowing, subchondral sclerosis, no acute bony abnormalities Assessment & Plan Assessment & Plan (1) Osteoarthritis of left knee: Code(s): M17.12 - Unilateral primary osteoarthritis, left knee Category: Medical Plan Ms. Sidhu presents with left knee pain due to osteoarthritis. The risks and benefits of a series of left knee Euflexxa viscosupplementation injections were discussed at length with the patient. The patient wished to proceed. She tolerated the 1st injection well. She will continue with her activity modifications. She will contact me prior to her follow-up appointment next week should any questions or concerns arise. I spent 20 minutes in reviewing the patient's records and imaging studies, seeing the patient and documenting in the medical record. Orders: Orders AMB Joint Injection/Aspiration 07/02/24 M17.12 - Unilateral primary osteoarthritis, left knee Coding Level of Care Code Est Pt Level 3 (11981) Complex EM visit Add On G2211 Diagnoses Osteoarthritis of left knee M17.12 CPT Codes Coding - Large joint: 02232 - Large joint ([id number])
--- OUTSIDE RECORDS SUMMARY | 2024-07-02 16:03 | XMS_ITS | Patient Health Record ---
Author Organization [facility] [place] Address [address] [facility] [place] [address] Care Team Providers Care Timber Management Technician Name Role Phone Livan Chance MD Primary Care Provider Bentley Jade Unavailable [phone] Reason For Referral No Information Medications Medication [...] Problem Status W/U Status Risk Notes Problem Hallux valgus (acquired), left foot (M20.12) Active confirmed Problem Acquired hallux valgus (44766010) Hallux valgus (acquired), right foot (M20.11) Active confirmed Plan Of Treatment Pending Test Test Name Order Date X ray : Foot, left 2V 08/21/2017 X ray : Foot, right 2V 08/21/2017 Insurance Providers Payer Name Payer Address Payer Phone Subscriber Number Group Number Insured Name Patient Relationship to Insured Coverage Start Date Coverage End Date Blue Benefits [address] [address] [place] [address] [id number] Gianna Sidhu Self - patient is the insured Medical (General) History Medical History History ICD Code Arthritis Back,Hip,and Knee pain Cataracts Hiatal hernia Reflux ( GERD) Chicken pox covid-19 Sciatica Surgical History Surgery Date(Month/Year) 12/27/1997 right knee arthroscopy 2007 cataract surgery
== END 2024-07-02 15:21 | disposition home or self-care (01) ==
LOC: HO.HOS 14:49
PROVIDERS: Visit Provider Orthopaedic Surgery
DX: M17.12 Unilateral primary osteoarthritis, left knee (principal)
CPT/HCPCS: 20610; 99213

== ENCOUNTER → 2024-07-02 14:49 | Outpatient (BNVA) | payer OTHER, SELFPAY | PROVIDERS: Visit Provider Orthopaedic Surgery | DX: M17.12 Unilateral primary osteoarthritis, left knee (principal) | CPT/HCPCS: 20610; J2003; J7323 ==

== ENCOUNTER → 2024-07-03 14:50 | Outpatient (BNV) | payer OTHER, SELFPAY | PROVIDERS: PCP Internal Medicine; Visit Provider Radiology Diagnostic Radiology | DX: M43.16 Spondylolisthesis, lumbar region (principal) | CPT/HCPCS: 72148 ==

== ENCOUNTER 2024-07-03 14:58 | Outpatient (REF) | payer OTHER, SELFPAY ==
--- NOTE | ~2024-07-03 | MR_ITS ---
EXAMINATION: MR LUMBAR SPINE WITHOUT CONTRAST CLINICAL INFORMATION: Lumbago/sciatica. Weakness and numbness in the lower extremity. COMPARISON: December 08, 2022. TECHNIQUE: MRI of the lumbar spine was obtained using routine sequences without contrast. FINDINGS: The last rib-bearing vertebra labeled T12. Modic type I and type III endplate changes at L2-3. L2 level marginal osteophyte formation and disc desiccation and subchondral cyst formation from T11-12 to L3-4 level. Multilevel Schmorl nodes in the endplates from L1 to L4. Grade 1 retrolisthesis, L2-3, L3-4 and to a lesser extent L1 to levels. There is bone marrow STIR signal in the posterior spinous processes of L5 and the endplates of L2-3. There is a focal less than 1 cm intrinsic hyperintense T1 bone lesion at T11 and likely intraosseous hemangioma. T12-L1: No disc herniation. No neuroforamina stenosis. L1-2: Broad-based bulging. Facet joint hypertrophy. No compression upon neural elements. L2-3: Grade 1 retrolisthesis. Decreased AP diameter of the thecal sac central canal. Right neuroforamina narrowing likely encroaching the right L3 and L2 exiting nerve roots. L3-4: Grade 1 retrolisthesis resulting in reduced AP diameter of the thecal sac and bilateral neuroforamina narrowing encroaching the L3 exiting nerve roots likely in the L4 nerve roots on the lateral recesses. Bilateral facet effusions. L4-5: Broad-based disc bulging. Facet joint and ligamentum flavum hypertrophy. Reduced AP diameter of the thecal sac and neuroforamina. Abutting the L5 nerve roots. L5-S1: Broad-based disc bulging. Facet joint hypertrophy. No compression upon neural elements. No prevertebral compartment hematoma, mass or fluid collection. Right-sided psoas muscle volume loss. Fatty atrophy of the lower lumbar muscles from L4 to sacrum. Soft tissue fullness, left adrenal gland. Likely parapelvic cyst, left kidney. MR/MR lumbar spine wo con IMPRESSION: Multilevel spondylosis from L2-3 to L3-4 levels resulting in grade 1 retrolisthesis central spinal canal and right greater than left neuroforamina stenosis encroaching the exiting nerve roots. Overall slight worsening since prior exam. Electronically signed by: Bowen Hendrix MD 07/03/2024 03:43 PM EDT
--- OUTSIDE RECORDS SUMMARY | 2024-07-03 15:04 | XMS_ITS | Patient Health Record ---
Author [facility] Address [address] [place] [address] Care Team Providers Care Job Counselor Name Role Phone Livan Chance MD Primary Care Provider Bentley Jade Unavailable [phone] Reason For Referral No Information Medications Medication [...] Status Risk Notes Problem Acquired hallux valgus ([id number]) Hallux valgus (acquired), left foot (M20.12) Active confirmed Problem Acquired hallux valgus (24528613) Hallux valgus (acquired), right foot (M20.11) Active confirmed Plan Of Treatment Pending Test Test Name Order Date X ray : Foot, left 2V 08/21/2017 X ray : Foot, right 2V 08/21/2017 Insurance Providers Payer Name Payer Address Payer Phone Subscriber Number Group Number Insured Name Patient Relationship to Insured Coverage Start Date Coverage End Date Blue Benefits [address] [address] [place] [address] [id number] Gianna Sidhu Self - patient is the insured Medical (General) History Medical History History ICD Code Arthritis Back,Hip,and Knee pain Cataracts Hiatal hernia Reflux ( GERD) Chicken pox covid-19 Sciatica Surgical History Surgery Date(Month/Year) 12/27/1997 right knee arthroscopy 2007 cataract surgery
== END 2024-07-03 14:59 | disposition home or self-care (01) ==
LOC: HO.MRI 14:58
PROVIDERS: PCP Internal Medicine; Visit Provider Internal Medicine
DX: M54.42 Lumbago with sciatica, left side (principal); G89.29 Other chronic pain
CPT/HCPCS: 72148

== ENCOUNTER 2024-07-09 15:00 | Outpatient (AMB) | payer OTHER, SELFPAY ==
--- OUTSIDE RECORDS SUMMARY | 2024-07-09 15:03 | XMS_ITS | Patient Health Record ---
Author Organization [facility] [place] Address [address] [facility] [place] [address] Care Team Providers Care Hogshead Liner Name Role Phone Livan Chance MD Primary Care Provider Bentley Jade Unavailable [phone] Reason For Referral No Information Medications Medication [...] (M20.12) Active confirmed Problem Acquired hallux valgus (84870388) Hallux valgus (acquired), right foot (M20.11) Active confirmed Plan Of Treatment Pending Test Test Name Order Date X ray : Foot, left 2V 08/21/2017 X ray : Foot, right 2V 08/21/2017 Insurance Providers Payer Name Payer Address Payer Phone Subscriber Number Group Number Insured Name Patient Relationship to Insured Coverage Start Date Coverage End Date Blue Benefits [address] [address] [place] [address] [id number] Gianna Sidhu Self - patient is the insured Medical (General) History Medical History History ICD Code Arthritis Back,Hip,and Knee pain Cataracts Hiatal hernia Reflux ( GERD) Chicken pox covid-19 Sciatica Surgical History Surgery Date(Month/Year) 12/27/1997 right knee arthroscopy 2007 cataract surgery
[2024-07-09 15:11] VITALS: BMI 28.0
--- NOTE | 2024-07-09 15:11 | A.OFFVIS_ITS ---
Vital Signs 07/09/24 15:11 Height 5 ft 8 in Weight 184 lb BMI 28.0 Intake Visit Reasons: INJ- LT knee Euflexxa#2 Intake Note: Gianna is a 64 year old female who presents today for her second dose of left knee Euflexxa injections. She states that she got mild relief from the 1st injection. She wishes to hold off on left knee surgery for as long as possible. Allergies banana Allergy (Severe, Verified 07/09/24 15:12) severe nausea avocado [AVOCADO] Allergy (Intermediate, Verified 07/09/24 15:12) Vomiting Medication List - Last Reconciled 07/10/24 by Zay Maddox MD acetaminophen 650 mg (2 x 325 mg) PO Q6H PRN 30 days amoxicillin 2,000 mg (4 x 500 mg) PO ONCE aspirin 325 mg PO Q12H 4 weeks celecoxib 200 mg PO BID 30 days cholecalciferol (vitamin D3) (Vitamin D3) 50 mcg PO QAM estradiol 1 patch topical QWEEK progesterone micronized 100 mg PO BEDTIME walker Folding front wheeled walker [facility] Medical History Hiatal hernia Back pain Lumbar spondylosis Arthritis GERD (gastroesophageal reflux disease) (~10/2009) Surgical History Hx of section Hx of bilateral cataract extraction S/P right knee arthroscopy Hx of colonoscopy H/O esophagogastroduodenoscopy Family History Father Emphysema lung Mother Uterine cancer Sister Lymphoma Social History Household Members: Family Housing: House Are you a primary point of care specialist to a significant other at home: No Do you presently have visiting nurse or other home services: No Alcohol intake: current Alcohol intake frequency: a few times a month Alcohol type: beer Patient Tobacco Use Status: Former Tobacco user Tobacco use type: Cigarette Years Smoked: 5 e-Cigarette/Vaping Use: Never Used service: No Current occupational status: employed Current occupation: [employer] MRI - Right HAnded Physical Exam Vital Signs: BMI result Body Mass Index 28.0 Extrem Other: Left knee examination shows a minimal effusion, palpable crepitus with range of motion, pain with range of motion, no instability Office Procedures AMB Joint Injection/Aspiration Joint Injection/Aspiration Primary Site: left knee Prep: site was prepped using aseptic technique Injected: 20 mg of (Euflexxa viscosupplementation) and 1% plain lidocaine Procedure: The patient tolerated the procedure well Coding 96703 - Large joint Procedure code (CPT) selection complete Results Reviewed Results Reviewed: X-rays of the patient's left knee taken previously show joint space narrowing, subchondral sclerosis, no acute bony abnormalities Assessment & Plan Assessment & Plan (1) Osteoarthritis of left knee: Code(s): M17.12 - Unilateral primary osteoarthritis, left knee Category: Medical Plan Ms. Sidhu presents with left knee pain due to osteoarthritis. The risks and benefits of a 2nd Euflexxa injection were discussed at length with the patient. The patient wished to proceed. She tolerated the injection well. She will continue with her home exercise program. She will follow up next week as scheduled. Orders: Orders AMB Joint Injection/Aspiration 07/09/24 M17.12 - Unilateral primary osteoarthritis, left knee Coding Level of Care Code Procedure Only Diagnoses Osteoarthritis of left knee M17.12 CPT Codes Coding - 13574 Large joint: 97426 - Large joint ([id number])
== END 2024-07-09 15:16 | disposition home or self-care (01) ==
LOC: HO.HOS 15:01
PROVIDERS: Visit Provider Orthopaedic Surgery
DX: M17.12 Unilateral primary osteoarthritis, left knee (principal)
CPT/HCPCS: 20610

== ENCOUNTER → 2024-07-09 15:00 | Outpatient (BNVA) | payer OTHER, SELFPAY | PROVIDERS: Visit Provider Orthopaedic Surgery | DX: M17.12 Unilateral primary osteoarthritis, left knee (principal) | CPT/HCPCS: 20610; J2003; J7323 ==

== ENCOUNTER 2024-07-16 14:37 | Outpatient (AMB) | payer OTHER, SELFPAY ==
--- NOTE | 2024-07-16 14:43 | A.OFFVIS_ITS ---
Intake Visit Reasons: INJ- LT knee Euflexxa#3 Intake Note: Gianna is a 64 year old female who presents today for her 3rd dose of left knee Euflexxa injections. She states that she has gotten mild relief from the 1st 2 injections. She does report continuing low back pain. She is due to follow up in our Neurosurgery Department in the near future. She recently had a lumbar spine MRI. Allergies banana Allergy (Severe, Verified 07/16/24 14:45) severe nausea avocado [AVOCADO] Allergy (Intermediate, Verified 07/16/24 14:45) Vomiting Medication List - Last Reconciled 07/17/24 by Zay Maddox MD acetaminophen 650 mg (2 x 325 mg) PO Q6H PRN 30 days amoxicillin 2,000 mg (4 x 500 mg) PO ONCE aspirin 325 mg PO Q12H 4 weeks celecoxib 200 mg PO BID 30 days cholecalciferol (vitamin D3) (Vitamin D3) 50 mcg PO QAM estradiol 1 patch topical QWEEK progesterone micronized 100 mg PO BEDTIME walker Folding front wheeled walker [facility] Medical History Hiatal hernia Back pain Lumbar spondylosis Arthritis GERD (gastroesophageal reflux disease) (~10/2009) Surgical History Hx of section Hx of bilateral cataract extraction S/P right knee arthroscopy Hx of colonoscopy H/O esophagogastroduodenoscopy Family History Father Emphysema lung Mother Uterine cancer Sister Lymphoma Social History Household Members: Family Housing: House Are you a primary care provider to a significant other at home: No Do you presently have visiting nurse or other home services: No Alcohol intake: current Alcohol intake frequency: a few times a month Alcohol type: beer Patient Tobacco Use Status: Former Tobacco user Tobacco use type: Cigarette Years Smoked: 5 e-Cigarette/Vaping Use: Never Used service: No Current occupational status: employed Current occupation: [employer] [place] MRI - Right HAnded Physical Exam Extrem Other: Left knee examination shows a minimal effusion, mild crepitus with range of motion, no instability Office Procedures AMB Joint Injection/Aspiration Joint Injection/Aspiration Primary Site: left knee Prep: site was prepped using aseptic technique Injected: 20 mg of (Euflexxa viscosupplementation) and 1% plain lidocaine Procedure: The patient tolerated the procedure well Coding 50025 - Large joint Procedure code (CPT) selection complete Results Reviewed Results Reviewed: X-rays of the patient's left knee taken previously show joint space narrowing, subchondral sclerosis, no acute bony abnormalities Assessment & Plan Assessment & Plan (1) Osteoarthritis of left knee: Code(s): M17.12 - Unilateral primary osteoarthritis, left knee Category: Medical Plan Ms. Sidhu presents with left knee pain due to osteoarthritis. The risks and benefits of a 3rd Euflexxa injection were discussed at length with the patient. The patient wished to proceed. She tolerated the injection well. She will continue with her home exercise program. She will follow up in our neurosurgery department as scheduled. She will contact me prior to her follow-up appointment in 3 months should any questions or concerns arise. Feel free to call me at any time should questions regarding her orthopedic management arise. I spent 20 minutes in reviewing the patient's records and imaging studies, seeing the patient and documenting in the medical record. Orders: Orders AMB Joint Injection/Aspiration 07/16/24 M17.12 - Unilateral primary osteoarthritis, left knee Coding Level of Care Code Global (58011) Diagnoses Osteoarthritis of left knee M17.12 CPT Codes Coding - 16172 Large joint: 45600 - Large joint ([id number])
--- OUTSIDE RECORDS SUMMARY | 2024-07-16 16:25 | XMS_ITS | Patient Health Record ---
Author Organization [facility] Address [address] [facility] [place] [address] Care Team Providers Care Assembly Press Operator Name Role Phone Livan Chance MD Primary Care Provider Bentley Jade Unavailable [phone] Reason For Referral No Information Medications Medication [...] Status Risk Notes Problem Acquired hallux valgus ([id number]) Hallux valgus (acquired), left foot (M20.12) Active confirmed Problem Acquired hallux valgus (79234831) Hallux valgus (acquired), right foot (M20.11) Active confirmed Plan Of Treatment Pending Test Test Name Order Date X ray : Foot, left 2V 08/21/2017 X ray : Foot, right 2V 08/21/2017 Insurance Providers Payer Name Payer Address Payer Phone Subscriber Number Group Number Insured Name Patient Relationship to Insured Coverage Start Date Coverage End Date Blue Benefits [address] [address] [place] [address] [id number] Gianna Sidhu Self - patient is the insured Medical (General) History Medical History History ICD Code Arthritis Back,Hip,and Knee pain Cataracts Hiatal hernia Reflux ( GERD) Chicken pox covid-19 Sciatica Surgical History Surgery Date(Month/Year) 12/27/1997 right knee arthroscopy 2007 cataract surgery
== END 2024-07-16 15:10 | disposition home or self-care (01) ==
LOC: HO.HOS 14:38
PROVIDERS: Visit Provider Orthopaedic Surgery
DX: M17.12 Unilateral primary osteoarthritis, left knee (principal)
CPT/HCPCS: 20610; 99024

== ENCOUNTER → 2024-07-16 14:37 | Outpatient (BNVA) | payer OTHER, SELFPAY | PROVIDERS: Visit Provider Orthopaedic Surgery | DX: M17.12 Unilateral primary osteoarthritis, left knee (principal) | CPT/HCPCS: 20610; J2003; J7323 ==

== ENCOUNTER 2024-07-18 07:04 | Outpatient (REF) | payer OTHER, SELFPAY ==
--- OUTSIDE RECORDS SUMMARY | 2024-07-18 07:08 | XMS_ITS | Patient Health Record ---
[facility] Address [address] [facility] [place] [address] Care Team Providers Care Sustainability Communicator Name Role Phone Livan Chance MD Primary Care Provider Bentley Jdae Unavailable [phone] Reason For Referral No Information Medications Medication [...] Status Risk Notes Problem Acquired hallux valgus ([id number]) Hallux valgus (acquired), left foot (M20.12) Active confirmed Problem Acquired hallux valgus (77846129) Hallux valgus (acquired), right foot (M20.11) Active confirmed Plan Of Treatment Pending Test Test Name Order Date X ray : Foot, left 2V 08/21/2017 X ray : Foot, right 2V 08/21/2017 Insurance Providers Payer Name Payer Address Payer Phone Subscriber Number Group Number Insured Name Patient Relationship to Insured Coverage Start Date Coverage End Date Blue Benefits [address] [address] [place] [address] [id number] Gianna Sidhu Self - patient is the insured Medical (General) History Medical History History ICD Code Arthritis Back,Hip,and Knee pain Cataracts Hiatal hernia Reflux ( GERD) Chicken pox covid-19 Sciatica Surgical History Surgery Date(Month/Year) 12/27/1997 right knee arthroscopy 2007 cataract surgery
[2024-07-18 07:21] LABS: MANUAL DIFF FLAG NO
[2024-07-18 08:06] LABS: Basophils Absolute Auto 0.1 X10*3/uL (0.0-0.2); Basophils Percent Auto 1.5 % (0-2); Eosinophils Absolute Auto 0.6 X10*3/uL (0.0-0.4); Eosinophils Percent Auto 8.4 % (0-4); Hematocrit 40.3 % (37.0-47.0); Hemoglobin 13.7 g/dl (12.0-16.0); Imm Gran Abs Auto 0.03 X10*3/uL (0.00-0.03); Imm Gran Pct Auto 0.4 % (0.0-0.4); Lymphocytes Absolute Auto 2.5 X10*3/uL (1.2-4.9); Mean Corpuscular Hemoglobin 29.6 pg (27.0-33.0); Mean Platelet Volume 9.2 fL (9.4-12.3); Monocytes Absolute Auto 0.7 X10*3/uL (0.1-1.2); Monocytes Percent Auto 10.1 % (2-11); Neutrophils Absolute Auto 2.9 x10*3/uL (2.0-8.3); Neutrophils Percent Auto 42.6 % (45-73); Platelet Count 288 X10*3/uL (160-400); Red Blood Count 4.63 X10*6/uL (4.20-5.50); Red Cell Distribution Width 13.3 % (11.0-16.0); White Blood Count 6.8 X10*3/uL (4.8-10.8)
[2024-07-18 08:31] LABS: Estimated Average Glucose 108 mg/dL; Hemoglobin A1c % 5.4 % (<6.0)
[2024-07-18 08:43] LABS: Alanine Aminotransferase 27 U/L (0-31); Albumin Level 4.5 g/dL (3.5-5.0); Alkaline Phosphatase 68 U/L (39-117); Anion Gap 10 (12-20); Aspartate Amino Transferase 23 U/L (5-31); Bilirubin Total 0.6 mg/dL (0.0-1.0); Blood Urea Nitrogen 24 mg/dL (9-16); Calcium 9.7 mg/dL (8.4-10.2); Carbon Dioxide 29 mmol/L (22-29); Chloride 107 mmol/L (96-108); Cholesterol 255 mg/dL (<200); Estimated Glomerular Filt Rate > 60; Glucose Random 89 mg/dL (60-115); HDL Cholesterol 62 mg/dL (>40); LDL Cholesterol Calculated 176 mg/dL (<100); Potassium 4.4 mmol/L (3.3-5.1); Sodium 142 mmol/L (135-145); Triglycerides 85 mg/dL (<150)
[2024-07-18 08:58] LABS: TSH reflex Free T4 2.61 uIU/mL (0.32-4.0)
== END 2024-07-18 07:05 | disposition home or self-care (01) ==
LOC: HO.LAB 07:04
PROVIDERS: PCP Internal Medicine; Visit Provider Internal Medicine
DX: E78.00 Pure hypercholesterolemia, unspecified (principal); R73.01 Impaired fasting glucose; R53.81 Other malaise; R53.83 Other fatigue
CPT/HCPCS: 36415; 80053; 80061; 83036; 84443; 85025

== ENCOUNTER 2024-10-08 14:58 | Outpatient (AMB) | payer OTHER, SELFPAY ==
--- NOTE | 2024-10-08 15:01 | A.OFFVIS_ITS ---
Vital Signs 10/08/24 15:05 Height 5 ft 7 in Weight 175 lb BMI 27.4 Intake Visit Reasons: Left knee pain Intake Note: Gianna is a 64 year old female who presents with complaints of left knee pain. The patient describes her pain as sharp in nature. She has tried Tylenol and anti-inflammatory medicines which gave her minimal relief. She wishes to hold off on surgery if at all possible. She has had injections in the past which gave her temporary relief. Allergies banana Allergy (Severe, Verified 10/08/24 15:05) severe nausea avocado (AVOCADO) Allergy (Intermediate, Verified 10/08/24 15:05) Vomiting Medication List - Last Reconciled 10/09/24 by Zay Maddox MD acetaminophen 650 mg (2 x 325 mg) PO Q6H PRN 30 days amoxicillin 2,000 mg (4 x 500 mg) PO ONCE aspirin 325 mg PO Q12H 4 weeks celecoxib 200 mg PO BID 30 days cholecalciferol (vitamin D3) (Vitamin D3) 50 mcg PO QAM estradiol 1 patch topical QWEEK progesterone micronized 100 mg PO BEDTIME walker Folding front wheeled walker [facility] Medical History Hiatal hernia Back pain Lumbar spondylosis Arthritis GERD (gastroesophageal reflux disease) (~10/2009) Surgical History Hx of section Hx of bilateral cataract extraction S/P right knee arthroscopy Hx of colonoscopy H/O esophagogastroduodenoscopy Family History Father Emphysema lung Mother Uterine cancer Sister Lymphoma Social History Household Members: Family Housing: House Are you a primary disabilities caregiver to a significant other at home: No Do you presently have visiting nurse or other home services: No Alcohol intake: current Alcohol intake frequency: a few times a month Alcohol type: beer Patient Tobacco Use Status: Former Tobacco user Tobacco use type: Cigarette Years Smoked: 5 e-Cigarette/Vaping Use: Never Used service: No Current occupational status: employed Current occupation: [employer] [place] MRI - Right HAnded Physical Exam Vital Signs: BMI result Body Mass Index 27.4 Const Other: Well-nourished well-developed very friendly female awake alert and oriented x3 in no acute distress Extrem Other: Bilateral lower extremity examination shows good capillary refill, no skin lesions noted, normal sensation light touch Left knee examination shows a minimal effusion, palpable crepitus with range of motion, pain with range of motion, no instability Office Procedures AMB Joint Injection/Aspiration Joint Injection/Aspiration Primary Site: left knee Prep: site was prepped using aseptic technique Injected: 40 mg of, DepoMedrol and 1% plain lidocaine Procedure: The patient tolerated the procedure well Coding - Large joint Procedure code (CPT) selection complete Results Reviewed Results Reviewed: X-rays of the patient's left knee taken previously show joint space narrowing, subchondral sclerosis, no bony abnormalities Assessment & Plan Assessment & Plan (1) Osteoarthritis of left knee: Code(s): M17.12 - Unilateral primary osteoarthritis, left knee Category: Medical (2) Left knee pain: Code(s): M25.562 - Pain in left knee Category: Medical Qualifiers: Chronicity: chronic Qualified Code(s): M25.562 - Pain in left knee; G89.29 - Other chronic pain Plan Ms. Sidhu presents with left knee pain due to degenerative joint disease. The risks and benefits of a left knee cortisone injection were discussed at length with the patient. The patient wished to proceed. She tolerated the injection well. She will continue with her home exercise program. She will contact me prior to her follow-up appointment in 3 months should any questions or concerns arise. Feel free to call me at any time should questions regarding her orthopedic management arise. I spent 21 minutes in reviewing the patient's records and imaging studies, seeing the patient and documenting in the medical record. Orders: Orders AMB Joint Injection/Aspiration 10/08/24 M17.12 - Unilateral primary osteoarthritis, left knee Coding Level of Care Code Est Pt Level 3 (81022) Complex EM visit Add On G2211 Diagnoses Osteoarthritis of left knee M17.12 Chronic pain of left knee M25.562; G89.29 Chronicity: chronic CPT Codes Coding - Large joint: 90474 - Large joint ([id number])
[2024-10-08 15:05] VITALS: BMI 27.4
--- OUTSIDE RECORDS SUMMARY | 2024-10-08 15:52 | XMS_ITS | Patient Health Record ---
[facility] Address [address] [facility] [place] [address] Care Team Providers Care Size Cutter Name Role Phone Livan Chance MD Primary Care Provider Bentley Jade Unavailable [phone] Reason For Referral No Information Medications Medication [...] Status Risk Notes Problem Acquired hallux valgus (30804526) Hallux valgus (acquired), left foot (M20.12) Active confirmed Problem Acquired hallux valgus (04376014) Hallux valgus (acquired), right foot (M20.11) Active confirmed Plan Of Treatment Pending Test Test Name Order Date X ray : Foot, left 2V 08/21/2017 X ray : Foot, right 2V 08/21/2017 Insurance Providers Payer Name Payer Address Payer Phone Subscriber Number Group Number Insured Name Patient Relationship to Insured Coverage Start Date Coverage End Date Blue Benefits [address] [address] [place] [address] [phone] [id number] Gianna Sidhu Self - patient is the insured Medical (General) History Medical History History ICD Code Arthritis Back,Hip,and Knee pain Cataracts Hiatal hernia Reflux ( GERD) Chicken pox covid-19 Sciatica Surgical History Surgery Date(Month/Year) 12/27/1997 right knee arthroscopy 2007 cataract surgery
--- OUTSIDE RECORDS SUMMARY | 2024-10-08 15:52 | XMS_ITS | Encounter Summary ---
Author Organization [facility] Address [address] [place] [address] Phone Care Team Providers Care Nutrient Management Specialist Name Role Phone Aj Lux MD Unavailable Livan Chance MD Unavailable Livan Chance MD Primary Care Provider Livan Chance MD Primary Care Provider Valerie Connelly DERMATOLOGY NURSE Unavailable InstrumJoy MD Unavailable Zay Maddox MD Unavailable [phone] Encounter Details Date Type Department Care Team (Late st Contact Info) Description 08/07/2017 Ancillary Orders [address] [address] Aj Lux MD [address] [place] [address] [email or web address] Pain in both knees, unspecified chronicity Social History Tobacco Use Types Packs/Day Years Used Date Smoking Tobacco: Former Cigarettes 0.5 8 1 02/25/1983 - 12/27/1991 Smokeless Tobacco: Former Alcohol Use Standard Drinks/Week Comments Yes 2 (1 standard drink = 0.6 oz pur e alcohol) Comments Unknown Sex and Gender Information Value Date Recorded Sex Assigned at Female 05/30/2020 9:14 AM EDT Legal Sex Female 9:46 PM EDT Gender Identity Female 05/30/2020 9:14 AM EDT Sexual Orientation Not on file documented as of this encounter Plan of Treatment Upcoming Encounters Date Type Department Care Team (Late st Contact Info) Description 12/23/2024 10:30 AM EST Office Visit [facility] Internal Medicine [address] [place] [address] Livan Chance MD [address] [place] [address] [email or web address] documented as of this encounter Results * XR KNEE 3 VIEW (BILATERAL) (08/09/2017 4:14 PM EDT) Narrative Saskia Davis - 08/09/2017 4:14 PM EDT This image report has been auto-finalized and has not been read by a Radiologist. Interpretation has been included in the provider encounter note for this date of service. us Aj Lux MD IMG XR LOWER EXTREMITY Fi nal Result documented in this encounter Visit Diagnoses Diagnosis Pain in both knees, unspecified chronicity Pain in both knees, unspecified chronicity documented in this encounter Additional Health Concerns Assessment Noted Time PHQ-2 Depression Total Score: 0 05/13/19 18 3:31 PM EDT documented as of this encounter Care Teams Nutrient Management Specialist Relationship Specialty Start Date End Date Livan Chance MD [address] [place] [address] PCP - General 12/01/16 05/03/20 Livan Chance MD [address] [place] [address] PCP - General Internal Medicine 05/04/20 Aj Lux MD [address] [place] [address] [email or web address] Historical LMR Provider 11/30/16 06/22/20 Livan Chance MD [address] [place] [address] [email or web address] Historical LMR Provider 11/30/16 06/22/20 Valerie Connelly NP [address] [place] [address] Gynecology 06/23/20 Joy Deal MD [address] [place] [address] Dr ALT[address]IR[address]O [address] [place] [address] Orthopedic Surgery 07/20/20 Zay Maddox MD [address] [place] [address] Dr Melara [address] [place] [address] Orthopedic Surgery 11/21/23 documented as of this encounter Additional Source Comments The information contained in this document represents components of the legal health record. It is not the complete legal health record.[facility]
--- OUTSIDE RECORDS SUMMARY | 2024-10-08 15:52 | XMS_ITS ---
Author Name [facility] Organization Unknown Encounters Encounter Type Encounter Reason Primary Diagnosis Location Date Ambulatory [facility] 12/16/2022 Ambulatory [facility] [place] 12/16/2022
--- OUTSIDE RECORDS SUMMARY | 2024-10-08 15:52 | XMS_ITS | Encounter Summary ---
Author Organization [facility] Address [address] [place] [address] Phone Care Team Providers Care Employee Relations Advisor Name Role Phone Aj Lux MD Unavailable Livan Chance MD Unavailable Livan Chance MD Primary Care Provider [phone] Livan Chance MD Primary Care Provider Valerie Connelly ROBOTICS SOFTWARE ENGINEER Unavailable Joy Deal MD Unavailable Zay Maddox MD Unavailable Encounter Details Date Type Department Care Team (Late st Contact Info) Description 08/07/2017 Ancillary Orders [facility] Orthopedics & Sports Medicine [address] [place] [address] Aj Lxu MD [address] [place] [address] [email or web address] Social History Tobacco Use Types Packs/Day Years [...] Upcoming Encounters Date Type Department Care Team ([facility] st Contact Info) Description 12/23/2024 10:30 AM EST Office Visit [facility] Internal Medicine [address] [place] [address] Livan Chance MD [address] [place] [address] [email or web address] documented as of this encounter Visit Diagnoses Not on filedocumented in this encounter Additional Health Concerns Assessment Noted Time PHQ-2 Depression Total Score: 0 05/13/19 18 3:31 PM EDT documented as of this encounter Care Teams Employee Relations Advisor Relationship Specialty Start Date End Date Livan Chance MD [address] [place] [address] PCP - General 12/01/16 05/03/20 Livan Chance MD [address] [place] [address] PCP - General Internal Medicine 05/04/20 Aj Lux MD [address] [place] [address] [email or web address] Historical LMR Provider 11/30/16 06/22/20 Livan Chance MD [address] [place] [address] Historical LMR Provider 11/30/16 06/22/20 Valerie Connelly NP [address] [place] [address] Gynecology 06/23/20 Joy Deal MD [address] [place] [address] Dr [address]IR[address] [place], [place] [phone] Orthopedic Surgery 07/20/20 Zay Maddox MD [address] [place] [address] Dr Melara [address] [place] [address] Orthopedic Surgery 11/21/23 documented as of this encounter Additional Source Comments The information contained in this document represents components of the legal health record. It is not the complete legal health record.[facility]
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
== END 2024-10-08 16:00 | disposition home or self-care (01) ==
LOC: HO.HOS 14:58
PROVIDERS: PCP Internal Medicine; Visit Provider Orthopaedic Surgery
DX: M17.12 Unilateral primary osteoarthritis, left knee (principal); M25.562 Pain in left knee; G89.29 Other chronic pain
CPT/HCPCS: 20610; 99213

== ENCOUNTER 2024-10-08 15:44 | Outpatient (REF) | payer OTHER, SELFPAY ==
--- NOTE | ~2024-10-08 | CT_ITS ---
EXAMINATION: CT ABDOMEN AND PELVIS WITHOUT CONTRAST CLINICAL INFORMATION: Hydronephrosis COMPARISON: February 29, 2016 TECHNIQUE: Multidetector volumetric imaging was performed from the superior aspect of the liver through the pubic symphysis. Sagittal and coronal reformatted images were obtained on the technologist's workstation. This CT examination was performed using dose optimization techniques as appropriate, variously including the following: *Automated exposure control *Adjustment of mA and/or kV according to patient size (this includes techniques or standardized protocols for targeted exams where dose is matched to indication/reason for exam; i.e. extremities or head) *Use of iterative reconstruction technique DLP: 527 mGY*cm FINDINGS: LUNG BASES: There is minimal linear scarring in the medial base of the right lower lobe. LIVER, GALLBLADDER, AND BILIARY TREE: The liver is normal in size, shape, and attenuation. No focal hepatic lesion or biliary ductal dilatation is present. The gallbladder is partially decompressed. It is otherwise unremarkable. There is no biliary ductal dilation. PANCREAS: Unremarkable. SPLEEN: Unremarkable. ADRENAL GLANDS: Unremarkable. KIDNEYS AND URETERS: The kidneys are normal in size, shape, and attenuation. No hydronephrosis, hydroureter, or calculi seen. No perinephric stranding. BLADDER: Unremarkable. GASTROINTESTINAL TRACT: The small and large bowel are unremarkable. The appendix is again not well seen. ABDOMINAL WALL: No significant hernia is appreciated. LYMPH NODES: Normal. VASCULAR: Unremarkable. PELVIC VISCERA: Unremarkable. OSSEOUS STRUCTURES: Severe degenerative changes are present in the lumbar spine, increased since the prior examination and most pronounced at L2-3 and L3-4. There is also increasing mild levoscoliosis. CT/CT abdomen pelvis wo IV con IMPRESSION: No acute abnormality, no hydronephrosis or stones in the kidneys and ureters. Increasing degenerative disc disease most severe at L2-3 and L3-4. Fleischner guidelines were followed. Electronically signed by: Mauri Farley MD 10/08/2024 05:32 PM EDT
== END 2024-10-08 15:45 | disposition home or self-care (01) ==
LOC: HO.CT 15:44
PROVIDERS: PCP Internal Medicine; Visit Provider Internal Medicine
DX: N13.30 Unspecified hydronephrosis (principal); R93.429 Abnormal radiologic findings on diagnostic imaging of unspecified kidney; M17.12 Unilateral primary osteoarthritis, left knee
CPT/HCPCS: 74176

== ENCOUNTER → 2024-10-08 16:22 | Outpatient (BNV) | payer OTHER, SELFPAY | PROVIDERS: PCP Internal Medicine; Visit Provider Radiology Diagnostic Radiology | DX: N13.30 Unspecified hydronephrosis (principal); M51.369 Other intervertebral disc degeneration, lumbar region without mention of lumbar back pain or lower extremity pain | CPT/HCPCS: 74176 ==

== ENCOUNTER 2024-12-24 14:13 | Outpatient (REF) | payer OTHER, SELFPAY ==
--- OUTSIDE RECORDS SUMMARY | 2024-12-23 10:30 | XMS_ITS | Encounter Summary ---
Author Organization [facility] Address [address] [place] [address] Phone Care Team Providers Care Technical Operations Vice President Name Role Phone Livan Chance MD Primary Care Provider [phone] Valerie Connelly NP Unavailable [phone] InstrumJoy MD Unavailable [phone] Zay Maddox MD Unavailable [phone] Reason for Referral * Consultation (Within 2 weeks) - New Request Specialty Diagnoses / Procedures Referred By Jose taylor Referred To Contact Diagnoses Gastroesophageal reflux disease, unspecified whether esophagitis present Livan Chance MD [address] [place] [address] Phone: tel: fax: [email or web address] Unknown, Vance, MD Referral ID Status Reason Start Date Expiration Date V isits Requested Visits Authorized [id number] New Request 12/23/2024 12/24/2025 1 1 Reason for Visit * Reason Comments Follow-up 6 month f/u Gastroesophageal Reflux Pt has tried ome prazole 20 mg OTC 14 day with temp relief sx came back. Lump Rt ankle pt noticed it 3 days ago Encounter Details Date Type Department Care Team (Latest Contact Info) Description 12/23/2024 10:30 AM EST Office Visit [facility] Internal Medicine [address] [facility] [place] [address] Livan Chance MD [address] [place] [address] [email or web address] Gastroesophageal reflux disease, unspecified whether esophagitis present (Primary Dx); Primary osteoarthritis involving multiple joints; History of total right knee replacement; Lump of skin of lower extremity, right; Impaired fasting glucose; NSAID long-term use; Chronic bilateral low back pain with left-sided sciatica; Left leg pain Social History Tobacco Use Types Packs/Day Years Used Date Smoking Tobacco: Former Cigarettes 0.5 8 1 02/25/1983 - 12/27/1991 Smokeless Tobacco: Never Alcohol Use Standard Drinks/Week Comments Yes 2 [...] high school, GED, job training, learning the Maur[place] language, technical skills, or developing parenting skills)? [...] on file documented as of this encounter Last Filed Vital Signs Vital Sign Reading Time Taken Comments Blood Pressure 124/64 12/23/2024 10:26 AM EST Pulse 72 12/23/2024 10:26 AM EST Temperature 36.8 C (98.3 F) 12/23/2024 10:26 AM EST Respiratory Rate 16 12/23/2024 10:26 AM EST Oxygen Saturation 97% 12/23/2024 10:26 AM EST Inhaled Oxygen Concentration - - Weight 79.7 kg (175 lb 9.6 oz) 12/23/2024 10:26 AM EST Height 170 cm (5' 6.93 ) 12/23/2024 10:26 AM EST Body Mass Index 27.56 12/23/2024 10:26 AM EST documented in this encounter Progress Notes * Livan Chance MD - 12/23/2024 10:30 AM EST Subjective Gianna Sidhu is a 64 y.o. female. History of Present Illness Patient enters for a follow up visit she has been having more reflux. She said it started when she was in [place] and she was drinking more wine. She denies any bleeding or vomiting up blood. Tramadol prn 1/2 tab Left thigh numb at night She has pain across upper buttock area wakes her up at night. She notes a burning sensation in herback. She has a lump in the right ankle. Current Outpatient Medications Ordered in [facility] Medication Sig cholecalciferol (VITAMIN D3) 25 MCG (1,000 unit) tablet Take 2,000 Units by mouth daily. diclofenac sodium (VOLTAREN) 75 MG EC tablet TAKE ONE (1) TABLET BY MOUTH TWICE DAILY SANDRA 0.025 mg/[address] 1 patch onto the skin once a week. progesterone (PROMETRIUM) 100 mg capsule Take 100 mg by mouth daily. gabapentin (NEURONTIN) 100 MG capsule 1 capsule qhs for 7 days . May increase to 2 capsules if no relief in 7 days pantoprazole (PROTONIX) 40 MG tablet Take 1 tablet (40 mg total) by mouth daily. traMADoL (ULTRAM) 50 mg tablet Take 1 tablet (50 mg total) by mouth nightly at bedtime as needed for pain (specific location in comments) (low back pain). valACYclovir (VALTREX) 500 MG tablet TAKE ONE TABLET BY MOUTH TWICE A DAY FOR 5 DAYS NEEDED Review of Systems Objective Physical Exam BP 124/64 (BP Location: Right arm, Patient Position: Sitting, Cuff Size: Medium) Pulse 72 Temp 36.8 ??C (98.3 ??F) (Oral) Resp 16 Ht 170 cm (5' 6.93 ) Wt 79.7 kg (175 lb 9.6 oz) SpO2 97% BMI 27.56 kg/m?? CONSTITUTIONAL: Appears well- developed and well nourished. Cooperative, patient is alert. HEENT:PERRTL, EOM intact, fundi benign, TM's clear, throat clear. NECK: supple, no thyroid megaly, no adenopathy. LUNGS: clear to A&P,no wheezing/rhonichi/rales. HEART: RRR S1S2 without murmurs, rubs or gallops. ABDOMEN: bowel sounds: normal, soft non tender without masses. EXTREMITIES: without edema, clubbing or cyanosis. Lump 2 inches above right lateraal malleolus,1.5 CM Diameter. Assessment & Plan 1. Gastroesophageal reflux disease, unspecified whether esophagitis present (Primary) were going tohave her see GI - Ambulatory referral to External Gastroenterology - pantoprazole (PROTONIX) 40 MG tablet Dispense: 90 tablet; Refill: 3 - Comprehensive Metabolic Panel (CMP) 2. Primary osteoarthritis involving multiple joints tylenol prn - Comprehensive Metabolic Panel (CMP) - traMADoL (ULTRAM) 50 mg tablet Dispense: 30 tablet; Refill: 1 3. History of total right knee replacement Comments: jan 2024 4. Lump of skin of lower extremity, right will consider an ultrasound if not resolving. Comments: 1 cm in diam 2 inches above right lateral malleolus 5. Impaired fasting glucose cont diet - Hemoglobin A1c 6. NSAID long-term use - Comprehensive Metabolic Panel (CMP) - CBC and Differential 7. Chronic bilateral low back pain with left-sided sciatica start Gabapentin she is aware of side effects. I told her to take 100mg for a week or 2 and then increase to 200mg. If not improving we mayneed to increase the dose further. - gabapentin (NEURONTIN) 100 MG capsule Dispense: 60 capsule; Refill: 0 8. Left leg pain - traMADoL (ULTRAM) 50 mg tablet Dispense: 30 tablet; Refill: 1 I obtained verbal consent from the patient or their proxy to record this visit for purposes of producing a draft of the encounter documentation. documented in this encounter Plan of Treatment Upcoming Encounters Date Type Department Care Team (Late st Contact Info) Description 04/07/2025 2:30 PM EST Office Visit [facility] [address] [place] [address] Livan Chance MD [address] [place] [address] [email or web address] Scheduled Orders Name Type Priority Associated Diagnoses Orde r Schedule Comprehensive Metabolic Panel (CMP) Lab Routine Gastroesophageal reflux disease, unspecified whether esophagitis present Primary osteoarthritis involving multiple joints NSAID long-term use Expected: 12/23/2024, Expires: 12/23/2025 CBC and Differential Lab Routine NSAID long-term use Expected: 12/23/2024, Expires: 12/23/2025 Hemoglobin A1c Lab Routine Impaired fasting glucose Expected: 12/23/2024, Expires: 12/23/2025 Scheduled Referrals Name Type Priority Associated Diagnoses Order Schedule Ambulatory referral to External Gastroenterology Outpatient Referral Routine Gastroesophageal reflux disease, unspecified whether esophagitis present Ordered: 12/23/2024 documented as of this encounter Visit Diagnoses Diagnosis Gastroesophageal reflux disease, unspecified whether esophagitis present- Primary Primary osteoarthritis involving multiple joints History of total right knee replacement Lump of skin of lower extremity, right Impaired fasting glucose NSAID long-term use Encounter for long-term (current) use of non-steroidal anti-inflammatories Chronic bilateral low back pain with left-sided sciatica Left leg pain Pain in soft tissues of limb documented in this encounter Additional Health Concerns Assessment Noted Time PHQ-2 Depression Total Score: 2 07/02/19 25 3:50 PM EDT documented as of this encounter Care Teams Technical Operations Vice President Relationship Specialty Start Date End Date Livan Chance MD [address] [place] [address] [email or web address] PCP - General Internal Medicine 05/04/20 Valerie Connelly NP [address] [place] [address] Gynecology 06/23/20 InstrJoy malone MD [address] [place] [address] Dr [address] [place] [address] Orthopedic Surgery 07/20/20 Zay Maddox MD [address] [place] [address] Dr [address] [place] [id number] Orthopedic Surgery 11/21/23 documented as of this encounter Additional Source Comments The information contained in this document represents components of the legal health record. It is not the complete legal health record.[facility]
[2024-12-24 14:27] LABS: MANUAL DIFF FLAG NO
[2024-12-24 15:48] LABS: Hematocrit 41.3 % (37.0-47.0); Hemoglobin 13.5 g/dl (12.0-16.0); Imm Gran Abs Auto 0.04 X10*3/uL (0.00-0.03); Imm Gran Pct Auto 0.5 % (0.0-0.4); Lymphocytes Absolute Auto 2.4 X10*3/uL (1.2-4.9); Mean Corpuscular HGB Conc 32.7 g/dl (31.0-35.0); Mean Corpuscular Hemoglobin 29.5 pg (27.0-33.0); Mean Corpuscular Volume 90.2 fL (80.0-98.0); NRBC Abs Auto 0.000 X10*3/uL (0.0-0.012); NRBC Pct Auto 0.0 /100WBC (0.0-0.2); Platelet Count 307 X10*3/uL (160-400); Red Blood Count 4.58 X10*6/uL (4.20-5.50); White Blood Count 7.9 X10*3/uL (4.8-10.8)
--- OUTSIDE RECORDS SUMMARY | 2024-12-24 15:54 | XMS_ITS | Patient Health Record ---
Author Organization [facility] Address [address] [facility] [place] [address] Care Team Providers Care Rotary Drill Operator Name Role Phone Livan Chance MD Primary Care Provider UnavailBentley Adams Unavailable [phone] Reason For Referral No Information Medications Medication [...] Status Risk Notes Problem Acquired hallux valgus (76095074) Hallux valgus (acquired), left foot (M20.12) Active confirmed Problem Acquired hallux valgus (13780297) Hallux valgus (acquired), right foot (M20.11) Active confirmed Plan Of Treatment Pending Test Test Name Order Date X ray : Foot, left 2V 08/21/2017 X ray : Foot, right 2V 08/21/2017 Insurance Providers Payer Name Payer Address Payer Phone Subscriber Number Group Number Insured Name Patient Relationship to Insured Coverage Start Date Coverage End Date Blue Benefits [address] [address] [place] [address] [id number] Gianna Sidhu Self - patient is the insured Medical (General) History Medical History History ICD Code Arthritis Back,Hip,and Knee pain Cataracts Hiatal hernia Reflux ( GERD) Chicken pox covid-19 Sciatica Surgical History Surgery Date(Month/Year) 12/27/1997 right knee arthroscopy 2007 cataract surgery
--- OUTSIDE RECORDS SUMMARY | 2024-12-24 15:54 | XMS_ITS | Encounter Summary ---
Author Organization [facility] Address [address] [place] [address] Phone Care Team Providers Care Nephrology Nurse Name Role Phone Aj Lux MD Unavailable [phone] Livan Chance MD Unavailable [phone] Livan Chance MD Primary Care Provider [phone] Livan Chance MD Primary Care Provider Valerie Connelly LIME HIDE INSPECTOR Unavailable [phone] [employer] MD Unavailable [phone] Zay Maddox MD Unavailable Encounter Details Date Type Department Care Team (Late st Contact Info) Description 08/07/2017 Ancillary Orders [address] [address] Aj Lux MD [address] [place] [address] [email or web address] Pain in both knees, unspecified chronicity Social [...] Description 04/07/2025 2:30 PM EST Office Visit [facility] Internal Medicine [address] [place] [address] Livan Chance MD [address] [place] [address] [email or web address] documented as of this encounter Results * [...] documented as of this encounter Care Teams Nephrology Nurse Relationship Specialty Start Date End Date Livan Chance MD [address] [place] [phone] PCP - General 12/01/16 05/03/20 Livan Chance MD [address] [place] [address] PCP - General Internal Medicine 05/04/20 Aj Lux MD [address] [place] [address] [email or web address] Historical LMR Provider 11/30/16 06/22/20 Livan Chance MD [address] [place] [address] [email or web address] Historical LMR Provider 11/30/16 06/22/20 Valerie Connelly NP [address] [place] [address] Gynecology 06/23/20 Joy Deal MD [address] [place] [address] Dr ALTAMIRANO [address] [place] [address] Orthopedic Surgery 07/20/20 Zay Maddox MD [address] [place] [address] Dr Melara [address] [place] [address] Orthopedic Surgery 11/21/23 documented as of this encounter Additional Source Comments The information contained in this document represents components of the legal health record. It is not the complete legal health record.[facility]
--- OUTSIDE RECORDS SUMMARY | 2024-12-24 15:54 | XMS_ITS | Encounter Summary ---
Author Organization [facility] Address [address] [place] [address] Phone Care Team Providers Care Manager Front Name Role Phone Aj Lux MD Unavailable Livan Chance MD Unavailable Livan Chance MD Primary Care Provider Livan Chance MD Primary Care Provider Valerie Connelly YIELD LOSS INSPECTOR Unavailable Joy Deal MD Unavailable Zay Maddox MD Unavailable [phone] Encounter Details Date Type Department Care Team (Late st Contact Info) Description 08/07/2017 Ancillary Orders [facility] Orthopedics & Sports Medicine [address] [place] [address] Aj Lux MD [address] [place] [address] [email or web address] Social History Tobacco Use Types Packs/Day [...] Description 04/07/2025 2:30 PM EST Office Visit [facility] Internal Medicine [address] [place] [address] Livan Chance MD [address] [place] [address] [email or web address] documented as of this encounter Visit Diagnoses Not on filedocumented in this encounter Additional Health Concerns Assessment Noted Time PHQ-2 Depression Total Score: 0 05/13/19 18 3:31 PM EDT documented as of this encounter Care Teams Manager Front Relationship Specialty Start Date End Date Livan Chance MD [address] [place] [address] PCP - General 12/01/16 05/03/20 Livan Chance MD [address] [place] [address] PCP - General Internal Medicine 05/04/20 Aj Lux MD [address] [place] [address] [email or web address] Historical LMR Provider 11/30/16 06/22/20 Livan Chance MD [address] [place] [address] Historical LMR Provider 11/30/16 06/22/20 Valerie Connelly NP [address] [place] [address] Gynecology 06/23/20 Joy Deal MD [address] [place] [address] Dr ALTAMIRANO [address] [place], [place] [phone] Orthopedic Surgery 07/20/20 Zay Maddox MD [address] [place] [address] Dr Melara [address] [place] [address] Orthopedic Surgery 11/21/23 documented as of this encounter Additional Source Comments The information contained in this document represents components of the legal health record. It is not the complete legal health record.[facility]
--- OUTSIDE RECORDS SUMMARY | 2024-12-24 15:54 | XMS_ITS | Clinical Summary ---
Author Organization [facility] Address [address] [place] [address] Phone Care Team Providers Care Manager Language Name Role Phone Livan Chance MD Primary Care Provider [phone] Valerie Connelly NP Unavailable [phone] [employer] MD Unavailable [phone] Zay Maddox MD Unavailable [phone] Allergies Active Allergy Reactions Criticality Noted Date Comments Avocado Nausea and/or Vomiting 01/12/2022 Banana Nausea and/or Vomiting 01/12/2022 Medications valACYclovir (VALTREX) 500 MG tablet TAKE ONE TABLET BY MOUTH TWICE A DAY FOR 5 DAYS NEEDED 1 06/15/19 19 Active cholecalciferol (VITAMIN D3) 25 MCG (1,000 unit) tablet Take 2,000 Units by mouth daily. Active progesterone (PROMETRIUM) 100 mg capsule Take 100 mg by mouth daily. 10/19/19 22 Active SANDRA 0.025 mg/[address] 1 patch onto the skin once a week. 11/16/19 23 Active diclofenac sodium (VOLTAREN) 75 MG EC tabletIndications :Primary osteoarthritis involving multiple joints TAKE ONE (1) TABLET BY MOUTH TWICE DAILY 60 tablet 2 12/17/19 25 Active pantoprazole (PROTONIX) 40 MG tabletIndications :Gastroesophageal reflux disease, unspecified whether esophagitis present Take 1 tablet (40 mg total) by mouth daily. 90 tablet 3 12/24/19 25 Active gabapentin (NEURONTIN) 100 MG capsuleIndication s:Chronic bilateral low back pain with left-sided sciatica 1 capsule qhs for 7 days . May increase to 2 capsules if no relief in 7 days 60 capsule 12/24/19 25 Active traMADoL (ULTRAM) 50 mg tabletIndications :Primary osteoarthritis involving multiple joints,Left leg pain Take 1 tablet (50 mg total) by mouth nightly at bedtime as needed for pain (specific location in comments) (low back pain). 30 tablet 1 12/24/19 25 Active traMADoL (ULTRAM) 50 mg tabletIndications :Left leg pain,Primary osteoarthritis involving multiple joints TAKE 1/2 TABLET (25MG) BY MOUTH EVERY NIGHT AT BEDTIME NEEDED FOR PAIN 30 tablet 1 02/09/20 24 025 Discontinued(R eorder) diclofenac sodium (VOLTAREN) 75 MG EC tabletIndications :Primary osteoarthritis involving multiple joints TAKE ONE (1) TABLET BY MOUTH TWICE DAILY 60 tablet 2 08/14/19 25 025 Discontinued Active Problems Problem Noted Date Diagnosed Date Diverticulitis of large inte wilder without perforation or abscess without bleeding 05/12/2017 Hyperlipidemia 05/12/2017 Knee pain 05/12/2017 Low back pain 05/12/2017 Osteoarthritis of knee 05/12/2017 Pain of left knee and lower leg 05/12/2017 Pure hypercholesterolemia 05/12/2017 Sleep disturbance 05/12/2017 Encounters Date Type Department Care Team Description 12/23/2024 10:30 AM EST Office Visit [facility] Internal Medicine [address] [place] [address] Livan Chance MD Gastroesophageal reflux disease, unspecified whether esophagitis present (Primary Dx); Primary osteoarthritis involving multiple joints; History of total right knee replacement; Lump of skin of lower extremity, right; Impaired fasting glucose; NSAID long-term use; Chronic bilateral low back pain with left-sided sciatica; Left leg pain 12/18/2024 Documentation [facility] Internal Medicine [address] [place] [address] Livan Chance MD 12/16/2024 Refill [facility] Internal Medicine [address] [place] [address] Mario Alberto Farley PA-C, BREANNE Medication Refill 10/09/2024 Orders Only [facility] [place] Internal Medicine [address] [facility] [place] [address] Provider, MD Shaylee from Last 3 Months [...] high school, GED, job training, learning the [place] language, technical skills, or developing parenting skills)? [...] Mass Index 27.56 12/23/2024 10:26 AM EST Plan of Treatment Upcoming Encounters Date Type Department Care Team (Late st Contact Info) Description 04/07/2025 2:30 PM EST Office Visit [facility] Internal Medicine [address] [place] [address] Livan Chance MD [address] [place] [address] [email or web address] Health Maintenance Due Date Last Done Comments HEPATITIS C SCREENING 06/04/1979 HIV ONE-TIME SCREENING (18-65 YEARS) 06/04/1979 FIT TEST 2006 FOBT 2006 SIGMOIDOSCOPY 2006 VIRTUAL COLONOSCOPY 2006 PNEUMOCOCCAL VACCINES (50+ years) (1 of 1 - PCV) 06/04/2011 ZOSTER VACCINES (1 of 2) 06/04/2011 COLONOSCOPY 01/30/2022 01/31/2012 INFLUENZA VACCINE (#1) 2024 2, 01/05/2021, 12/05/2019, Additional history exists COVID-19 VACCINE ( season) 2024 03/19/2021, 02/21/2020, 01/31/2020 PAP SMEAR 05/07/2025 05/07/2020, 06/30/2016 DEPRESSION SCREENING 07/01/2025 07/01/2024 MAMMOGRAM 06/27/2026 06/27/2024, 06/13, 05/19/2023, Additional history exists COLOGUARD 07/12/2026 07/13/2023 COLORECTAL CANCER SCREENING 07/12/2026 SCREENING FOR DIABETES 07/19/2027 , 07/18/2024, 01/19/2022, Additional history exists LIPID PANEL 07/18/2029 07/18/2024, 12/08/2021, 01/19/2022, Additional history exists Adult Td,Tdap Booster 06/29/2033 06/30/2023, 011 RSV VACCINE (1 - 1-dose 75+ series) 2036 SMOKING STATUS SCREENING (Once After 26 Yrs) Completed 12/23/2024 HEPATITIS A VACCINES Aged Out No long er eligible based on patient's age to complete this topic HIB VACCINES Aged Out No longer eligi ble based on patient's age to complete this topic IPV VACCINES Aged Out No longer eligi ble based on patient's age to complete this topic MENINGOCOCCAL VACCINES (ACWY) Aged Out No longer eligible based on patient's age to complete this topic MENINGOCOCCAL VACCINES (B) Aged Out N o longer eligible based on patient's age to complete this topic Medical Devices Not on file Procedures Procedure Name Priority Date/Time Associated Diagnosis Comments OUTSIDE IMAGING Routine 10/09/2024 12:58 PM EDT OUTSIDE IMAGING Routine 10/09/2024 12:[address] ABD/PELVIS REPORT ONLY Routine 10/08/2024 9:29 AM EDT LIPID PANEL Routine 07/18/2024 Pure hypercholesterolemia HM MAMMOGRAPHY Routine 06/27/2024 8:49 AM EDT OUTSIDE GLUCOSE FASTING Routine 01/19/2022 PAP SMEAR FOR RESULT ENTRY ONLY Routine 05/07/2020 HM COLONOSCOPY FOR RESULT ENTRY ONLY Routine 01/31/2012 from Last 3 Months or Most Recently Relevant to Health Maintenance Results * Outside Imaging Report Only (10/09/2024 12:58 PM EDT) us Historical Provider MD ZARATE XR CHEST Final Res ult * Outside Imaging Report Only (10/09/2024 12:52 PM EDT) us Historical Provider MD ZARATE XR CHEST Final Res ult * Outside CT Abd/pelvis Report Only (10/08/2024 9:29 AM EDT) us Historical Provider MD ZARATE CT ABD/PELVIS Final R esult * Lipid Panel (07/18/2024) HDL - External 62 EXTER NAL NON-INTERFACE D REF LAB Cholesterol, Total - External 255 EXTERNAL NON-INTERFACE D REF LAB Triglycerides - External 85 EXTERNAL NON-INTERFACE D REF LAB LDL, calculated - External 176 EXTERNAL NON-INTERFACE D REF LAB Cardiac Risk Ratio - External EXTERNAL NON-INTERFACE D REF LAB Non-HDL Cholesterol - External EXTERNAL NON-INTERFACE D REF LAB Blood 07/18/2024 Livan Chance MD LAB BLOOD BKR ORDERABLES Edit ed Result - Final EXTERNAL NON-INTERFACED REF LAB * MAMMOGRAPHY FOR RESULT ENTRY ONLY (06/27/2024 8:49 AM EDT) Result [facility] Historical Provider HEALTH MAINTENANCE Edited Result - Final Performing Organization Address [facility]/ZIP Co de Phone Number EXTERNAL NON-INTERFACED REF LAB * (ABNORMAL) Outside Glucose,Fasting (01/19/2022) Glucose, fasting - External 100(A) 65 - 99 mg/dL Result [facility] Historical Provider LAB BLOOD ORDERABLES [place] Result * PAP SMEAR FOR RESULT ENTRY ONLY (05/07/2020) Result [facility] Historical Provider HEALTH MAINTENANCE Final Result * COLONOSCOPY FOR RESULT ENTRY ONLY (01/31/2012) Colonoscopy 10 yr recall Historical Provider HEALTH MAINTENANCE Final Result from Last 3 Months or Most Recently Relevant to Health Maintenance Insurance [employer] Care Teams Manager Language Relationship Specialty Start Date End Date Livan Chance MD [address] [place] [address] [email or web address] PCP - General Internal Medicine 05/04/20 Valerie Connelly NP [address] [place] [address] Gynecology 06/23/20 Joy Deal MD [address] [place] [address] Dr ALTAMIRANO [address] [place] [address] Orthopedic Surgery 07/20/20 Zay Maddox MD [address] [place] [address] Dr Melara [address] [place] [address] Orthopedic Surgery 11/21/23 Additional Source Comments The information contained in this document represents components of the legal health record. It is not the complete legal health record.[facility]
[2024-12-24 16:09] LABS: Alanine Aminotransferase 26 U/L (0-31); Albumin Level 4.5 g/dL (3.5-5.0); Alkaline Phosphatase 76 U/L (39-117); Anion Gap 11 (12-20); Aspartate Amino Transferase 25 U/L (5-31); Blood Urea Nitrogen 16 mg/dL (9-16); Calcium 9.6 mg/dL (8.4-10.2); Carbon Dioxide 29 mmol/L (22-29); Chloride 106 mmol/L (96-108); Estimated Glomerular Filt Rate > 60; Potassium 4.0 mmol/L (3.3-5.1); Sodium 142 mmol/L (135-145); Total Protein 7.0 g/dL (6.5-8.0)
== END 2024-12-24 14:14 | disposition home or self-care (01) ==
LOC: HO.LAB 14:13
PROVIDERS: PCP Internal Medicine; Visit Provider Internal Medicine
DX: R73.01 Impaired fasting glucose (principal); M15.0 Primary generalized (osteo)arthritis; K21.9 Gastro-esophageal reflux disease without esophagitis; Z79.1 Long term (current) use of non-steroidal anti-inflammatories (NSAID)
CPT/HCPCS: 36415; 80053; 83036; 85025